=== PATIENT | male | born 1950 | race Caucasian/White ===

== ENCOUNTER 2016-12-15 19:53 | Inpatient (IN) | payer MEDICAID, MEDICARE ==
[~2016-12-15] VITALS: Ht 190.5 cm; Wt 132.5 kg
[2016-12-15] VITALS (8 sets, daily range): BP systolic 131–180; BP diastolic 66–90
[~2016-12-15 19:53] MED LIST: AGM875T
--- OUTSIDE RECORDS SUMMARY | 2016-12-15 21:49 | XMS REPORT ---
Author Author MASTER MORELAND [employer] Address Unknown Phone Unavailable Care Team Providers Care Test Deskman Name Role Phone MASTER MORELAND Unavailable Allergies No Known Allergies Problems Problem Type Condition Code Onset Dates Condition Status Problem History of ventricular tachycardia Z86.79 Active Problem Right ventricular systolic dysfunction without heart failure I51.89 Active Problem Prolonged QT interval R94.31 Active Problem Hypertension I10 Active Problem History of stroke Z86.73 Active Problem Elevated parathyroid hormone E34.9 Active Problem Paroxysmal atrial fibrillation I48.0 Active Problem History of GI bleed Z87.19 Active Problem Hematochezia K92.1 Active Problem Unspecified cirrhosis of liver K74.60 Active Problem Hematuria R31.9 Active Problem Vitamin D deficiency E55.9 Active Problem Localized swelling, mass and lump, head R22.0 Active Problem Thrombocytopenia D69.6 Active Medications Medication Code System Code Instructions Start Date End Date Status Dosage Carvedilol [facility] [address]-41 12.5 MG Orally two times per day 1 tablet Protonix [facility] [address]-20 40 mg Orally Once a day January 19, 2016 1 packet Potassium Chloride [facility] [address]-57 40 MEQ/15ML (20%) Orally Once a day 2 ml with food Results No Known Results Summary Purpose eClinicalWorks Submission
[2016-12-15] MEDS ORDERED: NS IV 1000 ML 1,000 ML ONE (21:56)
[2016-12-15] MEDS: ONDANSETRON 4 MG/2 ML (SDV) Z0FRAN IVP PRN (22:22)
[2016-12-15] MEDS: NS IV 1000 ML 1,000 ML IV SCH (22:23)
[2016-12-15] MEDS: PANTOPRAZOLE INJECTION 200 MG in NS (IVPB) 50 ML IV SCH (22:29)
[2016-12-16] VITALS (26 sets, daily range): BP systolic 93–162; BP diastolic 53–98
[2016-12-16 03:04] LABS: BASOPHILS % (AUTO) 0 % (0-10); EOSINOPHILS % (AUTO) 0 % (0-10); LYMPHOCYTES # (AUTO) 3.8 X 10^3 (1.0-4.0); LYMPHOCYTES % (AUTO) 21 % (12-44); MEAN CORPUSCULAR HEMOGLOBIN 35 PG (25-34); MEAN CORPUSCULAR HGB CONC 34 G/DL (32-36); MEAN CORPUSCULAR VOLUME 102 FL (80-99); MEAN PLATELET VOLUME 11.7 FL (7.4-10.4); MONOCYTES # (AUTO) 2.3 X 10^3 (0.0-1.0); MONOCYTES % (AUTO) 13 % (0-12); NEUTROPHILS # (AUTO) 12.2 X 10^3 (1.8-7.8); NEUTROPHILS % (AUTO) 67 % (42-75); PLATELET COUNT 103 10^3/uL (130-400); RED BLOOD COUNT 2.63 10^6/uL (4.35-5.85); RED CELL DISTRIBUTION WIDTH 15.8 % (10.0-14.5); WHITE BLOOD COUNT 18.2 10^3/uL (4.3-11.0)
[2016-12-16 03:12] LABS: PROTHROMBIN TIME PATIENT 22.7 SEC (12.2-14.7)
[2016-12-16 03:23] LABS: ANISOCYTOSIS SLIGHT; BAND NEUTROPHILS 0 %; BASOPHILS % (MANUAL) 0 %; EOSINOPHILS % (MANUAL) 0 %; LYMPHOCYTES % (MANUAL) 16 %; NEUTROPHILS % (MANUAL) 74 %; POLYCHROMASIA SLIGHT
[2016-12-16 03:24] LABS: ROULEAUX SLIGHT
[2016-12-16 03:25] LABS: ALANINE AMINOTRANSFERASE 22 U/L (0-55); ALBUMIN 2.2 G/DL (3.2-4.5); ANION GAP 10 MMOL/L (5-14); ASPARTATE AMINO TRANSFERASE 33 U/L (5-34); BILIRUBIN,TOTAL 3.5 MG/DL (0.1-1.0); BLOOD UREA NITROGEN 48 MG/DL (7-18); BUN/CREATININE RATIO 62; CALCIUM 7.7 MG/DL (8.5-10.1); CARBON DIOXIDE 22 MMOL/L (21-32); CHLORIDE 115 MMOL/L (98-107); CREATININE SERUM 0.78 MG/DL (0.60-1.30); GFR ESTIMATED > 60; GLUCOSE 120 MG/DL (70-105); MAGNESIUM 1.6 MG/DL (1.8-2.4); PHOSPHORUS 2.5 MG/DL (2.3-4.7); SODIUM 147 MMOL/L (135-145); TOTAL PROTEIN 5.2 G/DL (6.4-8.2)
[2016-12-16] MEDS: KCL 20 MEQ TAB (K-DUR) PO SCH (04:25)
[2016-12-16] MEDS: POTASSIUM CL 10MEQ/50ML IVPB 50 ML IV SCH (04:25)
[2016-12-16] MEDS: MAGNESIUM 1 GM/100 ML IVPB 100 ML IV SCH ×5 (05:11→09:57)
[2016-12-16] MEDS: NS IV 1000 ML 1,000 ML IV SCH ×2 (08:26→15:45)
[2016-12-16] MEDS: ONDANSETRON 4 MG/2 ML (SDV) Z0FRAN IVP PRN (08:26)
--- NOTE | 2016-12-16 08:46 | History & Physical-Hospitalist ---
HPI History of Present Illness: HPI/Chief Complaint this is 66-year-old white male who is a poor historian. He was accepted in transfer from [facility] last night at the request of Dr. Coles because of GI bleeding and recent suspected cardiac history. The patient said he had recently had a heart attack and then went to [facility] to recover. He was discharged last Saturday and went home. He is uncertain of his medications but said he was taking some. He denies having had any stroke or problems with his liver that he knows of in the past. He had become ill yesterday and then began vomiting and could not control it. Vomitus was coffee ground and overnight his hemoglobin has dropped. At the time of my interview he is coughing some, thirsty, but otherwise in no distress. Source: patient Exam Limitations: clinical condition Date Seen 12/16/16 Attending Physician Nikia Valdez MD PCP No,Local Physician Referring Physician Date of Admission Dec 15, 2016 at 21:43 Home Medications & Allergies Home Medications Reviewed patient Home Medication Reconciliation Form Allergies Coded Allergies: NKANo Known Allergies (Unverified Allergy, Mild, 05/22/09) Past Aqdolrn-Rdxket-Uxlzyj Hx Patient Social History Marrital Status: Employed/Student: retired Alcohol Use: Past History Recreational Drug Use: No Smoking Status: Never a Smoker Physical Abuse Screen: No Sexual Abuse: No Recent Foreign Travel: No Contact w/other who traveled: No Recent Hopitalizations: Yes Recent Infectious Disease Expo: No Immunizations Up To Date Date of Influenza Vaccine: Sep 27, 2016 Seasonal Allergies Seasonal Allergies: No Surgeries Surgeries: Vasectomy Respiratory Hx Respiratory Disorders: No Cardiovascular Cardiac Disorders: Heart Attack, Hypertension Neurological Hx Neurological Disorders: No Gastrointestinal Gastrointestinal Disorders: Gastroesophageal Reflux, Liver Disease/Jaundice, Gastrointestinal Bleed Musculoskeletal Hx Musculoskeletal Disorders: No Endocrine Hx Endocrine Disorders: No HEENT HX ENT Disorders: No Cancer Hx Cancer: No Psychosocial Hx Psychiatric Problems: No Integumentary HX Skin/Integumentary Disorder: No Blood Transfusions Hx Blood Disorders: No Family Medical History Significant Family History: No Pertinent Family Hx Family Hx: Patient reports no known family medical history. Review of Systems Constitutional: weakness EENTM: no symptoms reported Respiratory: no symptoms reported Cardiovascular: no symptoms reported Gastrointestinal: heartburn vomiting Genitourinary: no symptoms reported Musculoskeletal: no symptoms reported Skin: no symptoms reported Psychiatric/Neurological: Other (Redfield loss) Physical Exam Physical Exam Vital Signs Vital Sign - Last 12Hours 12/15/16 21:51 Temp 98.0 Pulse 101 Resp 12 B/P 165/83 Pulse Ox 96 O2 Delivery Room Air Capillary Refill : General Appearance: Obese Other (seems confused but no distress) HEENT: Other (oral mucosa dry or dentition) Neck: Normal Inspection Supple Respiratory: Lungs Clear Normal Breath Sounds No Accessory Muscle Use No Respiratory Distress Cardiovascular: Extra Beats Tachycardia Gastrointestinal: No Organomegaly Non Tender Soft Rectal: Deferred Back: Normal Inspection Extremity: Pedal Edema Neurologic/Psychiatric: Alert Other (confused and poor historian) Skin: Jaundice Lymphatic: No Adenopathy Results Results/Procedures Lab Laboratory Tests 12/15/16 22:15 12/16/16 02:30 12/16/16 05:43 Assessment/Plan Admission Diagnosis 1.upper GI bleed-consult Dr. Guy for upper and endoscopy, needs evaluation for esophageal varices 2. Lab picture consistent with cirrhotic liver disease uncertain etiology 3. thrombocytopenia is likely secondary to number 2 4. Elevated bilirubin most likely secondary to number 2 5. Questionable history of heart disease or a heart attack-we'll consult Dr. Lang for further evaluation 6. leukocytosis 7. Long PT/INR most likely secondary to number 2 8. Hypomagnesemia Clinical Quality Measures DVT/VTE Risk/Contraindication: Risk Factor Score Per Nursin RFS Level Per Nursing on Admit: 4+=Very High NIKIA VALDEZ MD Dec 16, 2016 08:46
--- NOTE | 2016-12-16 09:17 | Diagnostic Imaging Report ---
INDICATION: New admit. GI bleed with shortness of breath. FINDINGS: Lungs are well-aerated. There is increased density noted in the left lung base. No air bronchograms are demonstrated. The heart is not enlarged. No pulmonary edema. No hilar adenopathy. No pneumothorax or pleural effusions. IMPRESSION: Increased density left lung base suggesting developing consolidated infiltrate. Followup recommended. Dictated by: Dictated on workstation # [id number]
[2016-12-16] MEDS: meTOprolol 5 MG/5 ML (LOPRESSOR) VIAL IV SCH ×5 (09:56→21:37)
[2016-12-16 10:34] LABS: ALANINE AMINOTRANSFERASE 20 U/L (0-55); ALBUMIN 2.1 G/DL (3.2-4.5); ANION GAP 9 MMOL/L (5-14); ASPARTATE AMINO TRANSFERASE 31 U/L (5-34); BILIRUBIN,TOTAL 3.2 MG/DL (0.1-1.0); BLOOD UREA NITROGEN 47 MG/DL (7-18); BUN/CREATININE RATIO 59; CALCIUM 7.4 MG/DL (8.5-10.1); CARBON DIOXIDE 23 MMOL/L (21-32); CHLORIDE 117 MMOL/L (98-107); GFR ESTIMATED > 60; GLUCOSE 129 MG/DL (70-105); POTASSIUM 3.8 MMOL/L (3.6-5.0); SODIUM 149 MMOL/L (135-145); TOTAL PROTEIN 4.8 G/DL (6.4-8.2)
--- NOTE | 2016-12-16 13:08 | Consultation-Cardiology ---
HPI-Cardiology Cardiology Consultation: Date of Consultation 12/16/16 Date of Admission 12/15/16 Attending Physician Nikia Valdez MD Admitting Physician No,Local Physician Consulting Physician ZOEY PASTOR MD, FACP, FACC, [facility], CCDS Physician requesting consult: Dr Valdez HPI: Chief Complaint: Reason for consultation: Vague history of heart disease 66 yo man who does not provide much history. Was admitted to Dr Valdez after being transferred from [place] for UGI bleed. He states had had some abdominal discomfort yesterday and had had nausea and vomiting for a day or two, including dark-colored vomitus. He does not report cp. Despite asking him several times, he did not report any specific history of CAD. There is a mention of possible heart attacks, possibly in the recent past, in Dr Valdez' s note. Mr Branch does not report syncope or presyncope or palp or ankle swelling or shortness of breath, but history is not reliable. He goes silent during interview and seems to drift into sleep or unwilling to answer any questions Review of Systems-Cardiology Review of Systems Constitutional: other (A review of systems was attemtped, but is quite unreliable due either to his unwillingness to answer questions or somnolence or lack of recall of history) WRB-Xrfwpb-Vasrdn Hx Patient Social History Marrital Status: Employed/Student: retired Alcohol Use: Past History Recreational Drug Use: No Smoking Status: Never a Smoker Recent Foreign Travel: No Recent Infectious Disease Expo: No Hospitalization with Isolation: Denies Physical Abuse Screen: No Sexual Abuse: No Immunizations Up To Date Date of Influenza Vaccine: Sep 27, 2016 Past Medical History PMH As described under Assessment. Family Medical History Family History: Patient reports no known family medical history. Allergies and Home Medications Allergies Coded Allergies: NKANo Known Allergies (Unverified Allergy, Mild, 05/22/09) Physical Exam-Cardiology Physical Exam Vital Signs/I&O Vital Sign - Last 12Hours 12/16/16 12/16/16 12/16/16 12/16/16 01:30 02:00 03:00 04:00 Temp 98.2 Pulse 105 107 105 114 Resp 21 14 16 20 B/P 109/58 109/58 147/70 105/64 Pulse Ox 93 93 95 96 O2 Delivery Room Air Room Air Room Air Room Air 12/16/16 12/16/16 12/16/16 12/16/16 05:00 06:00 07:00 07:42 Temp 98.8 Pulse 105 106 102 104 Resp 20 28 17 B/P 129/62 121/53 148/70 Pulse Ox 95 91 95 O2 Delivery Room Air Room Air Room Air 12/16/16 11:40 Temp 98.4 Pulse 106 Resp 12 B/P 150/85 Pulse Ox 95 O2 Delivery Room Air Capillary Refill : Constitutional: other (He appears well nourished but communication with him is very difficult because of either unwillingness to answer questions or somnolence or lack of recall of history. Orientation is difficult to determine. He appears oriented to place and person, but not to time) HEENT: PERRL EOMINo xanthelasmas are seen Neck: carotid pulses are 2 + bilaterally with good upstrokes Respiratory: other (Fair to good air entry bilat, but diminished at the bases) Cardiovascular: regular rate-rhythm S1 and S2 systolic murmur (faint NAY at cardiac base) Gastrointestinal: No tender, softNo guarding, audible bowel sounds Extremities: swelling (mild leg edema)No clubbing, No cyanosis Neurologic/Psychiatric: other (mental status is described above; does seem to move all of his limbs equally) Skin: No rash on exposed areas, No ulcerations on exposed areas Data Review Labs Laboratory Tests 12/15/16 22:15: Hematocrit 31L, Hemoglobin 10.3L 12/16/16 02:30: Hematocrit 27L, Hemoglobin 9.1L, Activated Partial Thromboplast Time 39H, Alanine Aminotransferase (ALT/SGPT) 22, Albumin 2.2L, Alkaline Phosphatase 57, Anion Gap 10, Anisocytosis SLIGHT, Aspartate Amino Transf (AST/SGOT) 33, BUN/ Creatinine Ratio 62, Band Neutrophils 0, Basophils # (Auto) 0.0, Basophils % ( Manual) 0, Basophils (%) (Auto) 0, Blood Urea Nitrogen 48H, Calcium Level 7.7L, Carbon Dioxide Level 22, Chloride Level 115H, Creatinine 0.78, Eosinophils # ( Auto) 0.0, Eosinophils % (Manual) 0, Eosinophils (%) (Auto) 0, Estimat Glomerular Filtration Rate > 60, Glucose Level 120H, INR Comment 2.0H, Lymphocytes # (Auto) 3.8, Lymphocytes % (Manual) 16, Lymphocytes (%) (Auto) 21, Macrocytosis SLIGHT, Magnesium Level 1.6L, Mean Corpuscular Hemoglobin 35H, Mean Corpuscular Hemoglobin Concent 34, Mean Corpuscular Volume 102H, Mean Platelet Volume 11.7H, Monocytes # (Auto) 2.3H, Monocytes % (Manual) 10, Monocytes (%) (Auto) 13H, Neutrophils # (Auto) 12.2H, Neutrophils % (Manual) 74 , Neutrophils (%) (Auto) 67, Phosphorus Level 2.5, Platelet Count 103L, Polychromasia SLIGHT, Potassium Level 4.0, Prothrombin Time 22.7H, Red Blood Count 2.63L, Red Cell Distribution Width 15.8H, Rouleau SLIGHT, Sodium Level 147H, Total Bilirubin 3.5H, Total Protein 5.2L, White Blood Count 18.2H 12/16/16 05:43: Hematocrit 26L, Hemoglobin 8.6L 12/16/16 09:55: Hematocrit 24L, Hemoglobin 8.1L, Alanine Aminotransferase (ALT/SGPT) 20, Albumin 2.1L, Alkaline Phosphatase 53, Anion Gap 9, Aspartate Amino Transf (AST/ SGOT) 31, BUN/Creatinine Ratio 59, Blood Urea Nitrogen 47H, Calcium Level 7.4L, Carbon Dioxide Level 23, Chloride Level 117H, Creatinine 0.80, Estimat Glomerular Filtration Rate > 60, Glucose Level 129H, Potassium Level 3.8, Sodium Level 149H, Total Bilirubin 3.2H, Total Protein 4.8L, Troponin I < 0.30 Laboratory Tests 12/15/16 22:15 12/16/16 02:30 12/16/16 05:43 12/16/16 09:55 A/P-Cardiology Assessment/Admission Diagnosis * Impaired mental status or unwillingness to answer questions or poor recall of history * Probable active GI bleed (H/H continually falling) * Vague history of heart disease. No details known * Paroxysmal atrial fibrillation/flutter documented on an ECG of 12/16/16 at 9: 37 am. Currently NSR * ?Spontaneous coagulopathy (elevated PT/INR). He doesn't provide any history of having been on oral anticoag, but also does not seem to know his medical history or home meds * Echo of 12/16/16: LVEF 75-80% (hyperdynamic) without wall motion abnormality, mild to mod conc LVH, PASP 40 mmHg Discussion and Recomendations * Complex management due to patient's inability to provide any information (see above) * Will treat tachycardia with iv beta-she, as tolerated * If no evidence of active GI bleed, we recommend initiation of low dose aspirin while we are trying to get his past medical history/records together * Not suitable for full oral or parenteral anticoag due to active GI bleed and due to spontaneous coagulopathy Clinical Quality Measures DVT/VTE Risk/Contraindication: Risk Factor Score Per Nursin RFS Level Per Nursing on Admit: 4+=Very High Contraindications-Pharm: Other *list below* Other: upper GI bleed ZOEY PASTOR MD FACP FACC CCDS Dec 16, 2016 13:08
--- NOTE | 2016-12-16 13:21 | Consultation ---
History of Present Illness History of Present Illness Patient Consulted On(osiris/time) 12/16/16 13:20 Date of Admission History of Present Illness Surgery was asked to consult regarding Anemia and possible GI bleed. HPI: Pt is a 66-year-old white male who is a poor historian. He was accepted in transfer from [facility] (by Dr. Valdez) last night at the request of Dr. Coles because of GI bleeding and recent suspected cardiac history. The patient said he had recently had a heart attack and then went to [facility] to recover. He was discharged last Saturday and went home. He is uncertain of his medications but said he was taking some. He denies having had any stroke or problems with his liver that he knows of in the past. He had become ill yesterday and then began vomiting and could not control it. Vomitus was coffee ground and overnight his hemoglobin has dropped. Today pt seems tired and drifts to sleep, can answer some questions but not all. I am unable to determine if this is normal for him. He denies pain or vomiting today. Unable to determine status of alcohol consumption. According to EMS last night he had appx 500ml of coffee ground emesis and they found a "bucket" next to him that was 1/4 full of same fluid. Allergies and Home Medications Allergies Coded Allergies: NKANo Known Allergies (Unverified Allergy, Mild, 05/22/09) Past Micurbo-Whwequ-Xgwsvs Hx Patient Social History Alcohol Use: Past History Recreational Drug Use: No Smoking Status: Never a Smoker Recent Foreign Travel: No Contact w/Someone Who Travel: No Recent Infectious Disease Expo: No Recent Hopitalizations: Yes Physical Abuse Screen: No Sexual Abuse: No Immunizations Up To Date Date of Influenza Vaccine: Sep 27, 2016 Seasonal Allergies Seasonal Allergies: No Surgeries Surgeries: Vasectomy Respiratory Hx Respiratory Disorders: No Cardiovascular Cardiac Disorders: Heart Attack, Hypertension Neurological Hx Neurological Disorders: No Gastrointestinal Gastrointestinal Disorders: Gastroesophageal Reflux, Liver Disease/Jaundice, Gastrointestinal Bleed Musculoskeletal Hx Musculoskeletal Disorders: No Endocrine Hx Endocrine Disorders: No HEENT HX ENT Disorders: No Cancer Hx Cancer: No Psychosocial Hx Psychiatric Problems: No Integumentary HX Skin/Integumentary Disorder: No Blood Transfusions Hx Blood Disorders: No Family Medical History Significant Family History: No Pertinent Family Hx, Diabetes (pt denies any diabetes in his family) Family Medial History: Patient reports no known family medical history. Review of Systems-General ROS-Unable to Obtain: Per chart and from Daria pt is not reliable historian Physical Exam-General Problems Physical Exam Vital Signs Vital Sign - Last 12Hours 12/15/16 21:51 Temp 98.0 Pulse 101 Resp 12 B/P 165/83 Pulse Ox 96 O2 Delivery Room Air Capillary Refill : General Appearance: mild distress obese Eyes: Bilateral Eye EOMI, Bilateral Eye PERRL HEENT: pharynx normalNo scleral icterus (R), No scleral icterus (L) Neck: non-tender supple Respiratory: chest non-tender lungs clear no respiratory distress accessory muscle use Cardiovascular: regular rate, rhythm no murmur Gastrointestinal: normal bowel sounds soft no organomegaly no pulsatile mass tenderness (reports tenderness with deep palpation, but does not have voluntary guarding) Back: no CVA tenderness no vertebral tenderness Extremities: no calf tenderness normal capillary refill Neurologic/Psychiatric: electronic repair troubleshooter II-XII nml as tested no motor/sensory deficits Skin: normal color warm/dry Lymphatic: no adenopathy (neck, axilla or groin) Data Review Labs Laboratory Tests 12/15/16 22:15: Hematocrit 31L, Hemoglobin 10.3L 12/16/16 02:30: Hematocrit 27L, Hemoglobin 9.1L, Activated Partial Thromboplast Time 39H, Alanine Aminotransferase (ALT/SGPT) 22, Albumin 2.2L, Alkaline Phosphatase 57, Anion Gap 10, Anisocytosis SLIGHT, Aspartate Amino Transf (AST/SGOT) 33, BUN/ Creatinine Ratio 62, Band Neutrophils 0, Basophils # (Auto) 0.0, Basophils % ( Manual) 0, Basophils (%) (Auto) 0, Blood Urea Nitrogen 48H, Calcium Level 7.7L, Carbon Dioxide Level 22, Chloride Level 115H, Creatinine 0.78, Eosinophils # ( Auto) 0.0, Eosinophils % (Manual) 0, Eosinophils (%) (Auto) 0, Estimat Glomerular Filtration Rate > 60, Glucose Level 120H, INR Comment 2.0H, Lymphocytes # (Auto) 3.8, Lymphocytes % (Manual) 16, Lymphocytes (%) (Auto) 21, Macrocytosis SLIGHT, Magnesium Level 1.6L, Mean Corpuscular Hemoglobin 35H, Mean Corpuscular Hemoglobin Concent 34, Mean Corpuscular Volume 102H, Mean Platelet Volume 11.7H, Monocytes # (Auto) 2.3H, Monocytes % (Manual) 10, Monocytes (%) (Auto) 13H, Neutrophils # (Auto) 12.2H, Neutrophils % (Manual) 74 , Neutrophils (%) (Auto) 67, Phosphorus Level 2.5, Platelet Count 103L, Polychromasia SLIGHT, Potassium Level 4.0, Prothrombin Time 22.7H, Red Blood Count 2.63L, Red Cell Distribution Width 15.8H, Rouleau SLIGHT, Sodium Level 147H, Total Bilirubin 3.5H, Total Protein 5.2L, White Blood Count 18.2H 12/16/16 05:43: Hematocrit 26L, Hemoglobin 8.6L 12/16/16 09:55: Hematocrit 24L, Hemoglobin 8.1L, Alanine Aminotransferase (ALT/SGPT) 20, Albumin 2.1L, Alkaline Phosphatase 53, Anion Gap 9, Aspartate Amino Transf (AST/ SGOT) 31, BUN/Creatinine Ratio 59, Blood Urea Nitrogen 47H, Calcium Level 7.4L, Carbon Dioxide Level 23, Chloride Level 117H, Creatinine 0.80, Estimat Glomerular Filtration Rate > 60, Glucose Level 129H, Potassium Level 3.8, Sodium Level 149H, Total Bilirubin 3.2H, Total Protein 4.8L, Troponin I < 0.30 Assessment/Plan Assessment/Plan Assessment/Plan Anemia possibly secondary to GI bleed - EGD with possible biopsy, IV fluids, check H/H Q12 hours. 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 Coagulopathy - ? secondary to medications or liver disease CAD - Cardiology consulted Hypomagnesemia - recheck labs and replace Hypernatremia & Hyperchloremia switch IVF Hyperbilirubinemia ? secondary to liver disease or GI Bleed Clinical Quality Measures DVT/VTE Risk/Contraindication: Risk Factor Score Per Nursin RFS Level Per Nursing on Admit: 4+=Very High Contraindications-Pharm: Other *list below* Other: upper GI bleed GLENDA UPTON DO Dec 16, 2016 13:21
[2016-12-16] MEDS ORDERED: VANCOMYCIN IV ADD-VANTAGE 1,000 MG in SODIUM CHLORIDE (ADD-VANTAGE) 250 ML IV ONE (13:45)
[2016-12-16] MEDS ORDERED: NS IV 500 ML 500 ML ONE (13:49)
[2016-12-16] MEDS ORDERED: proPOfol 200 MG/20 ML (DIPRIVAN) VIAL IV ONE ×2 (13:51→14:15)
[2016-12-16] MEDS ORDERED: EPINEPHrine INJECTION 1 MG/ML AMP ONE ×2 (14:03→14:18)
[2016-12-16] MEDS ORDERED: EPINEPHrine INJECTION 1 MG/ML AMP INJ ONE (14:15)
[2016-12-16] MEDS ORDERED: HURRICAINE EXT TUBE (BENZOCAINE) XX ONE (14:15)
[2016-12-16] MEDS ORDERED: NS IV 500 ML 500 ML IV ONE (14:15)
[2016-12-16] MEDS ORDERED: VANCOMYCIN 2000 MG/NS 500 ML IVPB IV NR ×2 (15:00)
[2016-12-16] MEDS ORDERED: HURRICAINE EXT TUBE (BENZOCAINE) ONE (15:31)
[2016-12-16] MEDS: AMPICILLIN/SULBACTAM INJECTION 1.5 GM in NS (IVPB) 50 ML IV SCH ×2 (15:44→21:37)
--- NOTE | 2016-12-16 16:06 | Progress Note-Hospitalist ---
Progress Note HPI/CC on Admission this is 66-year-old white male who is a poor historian. He was accepted in transfer from [facility] last night at the request of Dr. Coles because of GI bleeding and recent suspected cardiac history. The patient said he had recently had a heart attack and then went to [facility], operated by [facility] to recover. He was discharged last Saturday and went home. He is uncertain of his medications but said he was taking some. He denies having had any stroke or problems with his liver that he knows of in the past. He had become ill yesterday and then began vomiting and could not control it. Vomitus was coffee ground and overnight his hemoglobin has dropped. At the time of my interview he is coughing some, thirsty, but otherwise in no distress. Progress Notes/Assess & Plan Date Seen 12/16/16 Admission Dx/Process 1.upper GI bleed-consult Dr. Guy for upper and endoscopy, needs evaluation for esophageal varices 2. Lab picture consistent with cirrhotic liver disease uncertain etiology 3. thrombocytopenia is likely secondary to number 2 4. Elevated bilirubin most likely secondary to number 2 5. Questionable history of heart disease or a heart attack-we'll consult Dr. Lang for further evaluation 6. leukocytosis 7. Long PT/INR most likely secondary to number 2 8. Hypomagnesemia Diagonsis/Assessment & Plan Dr. Tripp was kind enough to provide additional documents and history from her having seen Mr. Branch in the past. Evidently he has had a history of paroxysmal atrial fibrillation the past, hypertension, GI bleeding, and a cardiac arrest which was pulseless V. tach in April and May 2015. Heart Has been recommended in the past but he is fused to do that. He also has a history of a stroke in the past-2014 and unspecified cirrhosis of the liver. His had a history of prolonged QT interval. Vitamin D deficiency elevated parathyroid hormone level and thrombocytopenia. It has been recommended in the past that he take Coreg 12.5 mg twice a day, aspirin, Lasix, potassium, and Protonix.he has been noncompliant with those medications KYLAH NORRIS MD Dec 16, 2016 16:06
[2016-12-16] MEDS ORDERED: SUCRALFATE 1 GM (CARAFATE) TAB PO SCH (21:00)
[2016-12-16] MEDS ORDERED: LACTULOSE SYRUP 10GM/15ML (ENULOSE) 30ML UDC PO SCH (21:00)
[2016-12-16] MEDS ORDERED: LACTULOSE SYRUP 10GM/15ML (ENULOSE) 30ML UDC ONE (21:33)
[2016-12-17] VITALS (30 sets, daily range): BP systolic 117–177; BP diastolic 56–92
[2016-12-17] MEDS: VANCOMYCIN 1250 MG/NS 250 ML IVPB IV SCH ×8 (00:01→23:50)
[2016-12-17] MEDS: PANTOPRAZOLE INJECTION 200 MG in NS (IVPB) 50 ML IV SCH (00:01)
[2016-12-17] MEDS: meTOprolol 5 MG/5 ML (LOPRESSOR) VIAL IV SCH ×8 (01:00→22:00)
[2016-12-17] MEDS: KCL 20 MEQ TAB (K-DUR) PO SCH (03:46)
[2016-12-17 04:08] LABS: BASOPHILS % (AUTO) 0 % (0-10); EOSINOPHILS # (AUTO) 0.1 10^3/uL (0.0-0.3); EOSINOPHILS % (AUTO) 1 % (0-10); LYMPHOCYTES # (AUTO) 3.4 X 10^3 (1.0-4.0); LYMPHOCYTES % (AUTO) 17 % (12-44); MEAN CORPUSCULAR HEMOGLOBIN 34 PG (25-34); MEAN CORPUSCULAR HGB CONC 33 G/DL (32-36); MEAN CORPUSCULAR VOLUME 103 FL (80-99); MEAN PLATELET VOLUME 11.8 FL (7.4-10.4); MONOCYTES % (AUTO) 10 % (0-12); NEUTROPHILS # (AUTO) 13.9 X 10^3 (1.8-7.8); NEUTROPHILS % (AUTO) 72 % (42-75); PLATELET COUNT 93 10^3/uL (130-400); RED BLOOD COUNT 2.15 10^6/uL (4.35-5.85); WHITE BLOOD COUNT 19.4 10^3/uL (4.3-11.0)
[2016-12-17 04:18] LABS: INR 2.4 (0.8-1.4); PROTHROMBIN TIME PATIENT 25.9 SEC (12.2-14.7)
[2016-12-17 04:32] LABS: ALANINE AMINOTRANSFERASE 22 U/L (0-55); ALBUMIN 2.2 G/DL (3.2-4.5); ANION GAP 11 MMOL/L (5-14); ASPARTATE AMINO TRANSFERASE 36 U/L (5-34); BILIRUBIN,TOTAL 3.1 MG/DL (0.1-1.0); BLOOD UREA NITROGEN 40 MG/DL (7-18); BUN/CREATININE RATIO 47; CALCIUM 7.2 MG/DL (8.5-10.1); CARBON DIOXIDE 19 MMOL/L (21-32); CHLORIDE 122 MMOL/L (98-107); CREATININE SERUM 0.85 MG/DL (0.60-1.30); GFR ESTIMATED > 60; GLUCOSE 124 MG/DL (70-105); MAGNESIUM 2.1 MG/DL (1.8-2.4); PHOSPHORUS 2.4 MG/DL (2.3-4.7); POTASSIUM 3.6 MMOL/L (3.6-5.0); SODIUM 152 MMOL/L (135-145); TOTAL PROTEIN 4.8 G/DL (6.4-8.2)
[2016-12-17] MEDS: MAGNESIUM 1 GM/100 ML IVPB 100 ML IV SCH (05:46)
[2016-12-17] MEDS: AMPICILLIN/SULBACTAM INJECTION 1.5 GM in NS (IVPB) 50 ML IV SCH ×3 (05:55→23:48)
[2016-12-17] MEDS: POTASSIUM CL 10MEQ/50ML IVPB 50 ML IV SCH ×3 (05:56→07:33)
[2016-12-17] MEDS: NS IV 1000 ML 1,000 ML IV SCH ×2 (05:59→16:57)
[2016-12-17] MEDS: SUCRALFATE 1 GM (CARAFATE) TAB NG SCH ×4 (06:02→23:47)
--- NOTE | 2016-12-17 07:11 | Pulmonary Consultation ---
History of Present Illness History of Present Illness Date of Consultation 12/17/16 07:06 Date of Admission History of Present Illness 66yo poor historian with hx of recent [place] poor historian transferred from [facility] by Dr. Coles secondary to GIB. Prior to admission pt was coughing up coffee ground emesis. pt is now s/p EGD duodenal ulcers were found. Unable to obtain ROS. I am consulted for ICU management. Allergies and Home Medications Allergies Coded Allergies: NKANo Known Allergies (Unverified Allergy, Mild, 05/22/09) Past Kooxsur-Mpeixl-Ssfavy Hx Patient Social History Alcohol Use: Past History Recreational Drug Use: No Smoking Status: Never a Smoker Recent Foreign Travel: No Contact w/Someone Who Travel: No Recent Infectious Disease Expo: No Recent Hopitalizations: Yes Physical Abuse Screen: No Sexual Abuse: No Immunizations Up To Date Date of Influenza Vaccine: Sep 27, 2016 Seasonal Allergies Seasonal Allergies: No Surgeries Surgeries: Vasectomy Respiratory Hx Respiratory Disorders: No Cardiovascular Cardiac Disorders: Heart Attack, Hypertension Neurological Hx Neurological Disorders: No Gastrointestinal Gastrointestinal Disorders: Gastroesophageal Reflux, Liver Disease/Jaundice, Gastrointestinal Bleed Musculoskeletal Hx Musculoskeletal Disorders: No Endocrine Hx Endocrine Disorders: No HEENT HX ENT Disorders: No Cancer Hx Cancer: No Psychosocial Hx Psychiatric Problems: No Integumentary HX Skin/Integumentary Disorder: No Blood Transfusions Hx Blood Disorders: No Family Medical History Significant Family History: No Pertinent Family Hx, Diabetes (pt denies any diabetes in his family) Family Medial History: Patient reports no known family medical history. Exam Exam Vital Signs Date Time Temp Pulse Resp B/P Pulse Ox O2 Delivery O2 Flow Rate FiO2 12/17/16 06:00 80 12 118/62 96 Nasal Cannula 2.00 12/17/16 05:00 81 10 124/72 95 Nasal Cannula 2.00 12/17/16 04:00 133 26 117/59 100 Nasal Cannula 2.00 12/17/16 04:00 2.00 12/17/16 03:00 89 13 128/56 98 Nasal Cannula 2.00 12/17/16 02:00 89 11 133/92 95 Nasal Cannula 2.00 12/17/16 01:00 86 21 135/68 96 Nasal Cannula 2.00 12/17/16 01:00 86 12/16/16 23:00 94 24 115/62 96 Nasal Cannula 2.00 12/16/16 22:00 86 12 136/69 94 Nasal Cannula 2.00 12/16/16 21:00 88 16 130/64 92 Nasal Cannula 2.00 12/16/16 21:00 2.00 12/16/16 20:30 2.00 12/16/16 20:00 98.4 90 16 138/85 94 Nasal Cannula 2.00 12/16/16 19:04 94 12/16/16 19:04 94 13 97 Nasal Cannula 2.00 12/16/16 19:00 151 17 93/57 99 Nasal Cannula 2.00 12/16/16 19:00 151 12/16/16 18:00 146 26 103/66 97 Room Air 12/16/16 17:00 97 10 107/88 100 Room Air 12/16/16 16:00 98.2 93 12 140/72 97 Nasal Cannula 2.00 12/16/16 15:00 105 23 140/72 100 Room Air 12/16/16 14:00 12/16/16 13:00 105 9 95 Room Air 12/16/16 13:00 98 12/16/16 12:00 112 7 162/80 95 Room Air 12/16/16 11:40 98.4 106 12 150/85 95 Room Air 12/16/16 11:00 112 8 128/75 95 Room Air 12/16/16 10:00 174 12 117/68 93 Room Air 12/16/16 09:00 101 16 127/98 92 Room Air 12/16/16 08:00 107 7 126/80 94 Room Air 12/16/16 07:42 98.8 104 17 148/70 95 Room Air I & O 12/17/16 07:00 Intake Total 2900 ml Balance 2900 ml General Appearance: Obese Other (seems confused but no distress) HEENT: Other (oral mucosa dry or dentition) Neck: Normal Inspection Supple Respiratory: Lungs Clear Normal Breath Sounds No Accessory Muscle Use No Respiratory Distress Cardiovascular: Extra Beats Tachycardia Gastrointestinal: normal bowel sounds soft no organomegaly no pulsatile mass tenderness (reports tenderness with deep palpation, but does not have voluntary guarding) Extremity: Pedal Edema Neurologic/Psychiatric: Depressed Affect Disoriented x3 Other (confused and poor historian) Skin: Jaundice Lymphatic: No Adenopathy Results Lab Laboratory Tests 12/15/16 22:15 12/16/16 02:30 12/16/16 05:43 12/16/16 09:55 12/16/16 15:58 12/17/16 03:25 Assessment/Plan Assessment/Plan Upper GIB -Dr. 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
[2016-12-17] MEDS ORDERED: VITAMIN K 1 MG/ML ORAL SOLN 1 ML SYRINGE PO NR (07:30)
--- NOTE | 2016-12-17 08:02 | Diagnostic Imaging Report ---
INDICATION: Dyspnea. DISCUSSION: Single portable upright view of the chest was obtained, comparison 12/16/2016. New enteric tube with tip below the level of the diaphragm though difficult to visualize. Normal heart size. No focal consolidation, pleural fluid, or pneumothorax. IMPRESSION: 1. No acute cardiopulmonary process. Dictated by: Dictated on workstation # [id number]
--- NOTE | 2016-12-17 08:40 | Progress Note-Cardiology ---
Cardiology SOAP Progress Note Subjective: In bed. Oriented to self. Not answering any questions asked of him. No visible signs of distress. Objective: I&O/Vital Signs Vital Sign - Last 12Hours 12/17/16 12/17/16 12/17/16 12/17/16 02:00 03:00 04:00 04:00 Pulse 89 89 133 Resp 11 13 26 B/P 133/92 128/56 117/59 Pulse Ox 95 98 100 O2 Delivery Nasal Cannula Nasal Cannula Nasal Cannula O2 Flow Rate 2.00 2.00 2.00 2.00 12/17/16 12/17/16 12/17/16 12/17/16 05:00 06:00 07:00 07:00 Pulse 81 80 82 80 Resp 10 12 8 B/P 124/72 118/62 119/61 Pulse Ox 95 96 96 O2 Delivery Nasal Cannula Nasal Cannula Nasal Cannula O2 Flow Rate 2.00 2.00 2.00 12/17/16 12/17/16 12/17/16 12/17/16 07:41 08:00 09:00 09:57 Temp 96.8 Pulse 76 80 80 Resp 5 11 17 B/P 141/68 143/74 132/63 Pulse Ox 97 95 92 O2 Delivery Nasal Cannula Nasal Cannula O2 Flow Rate 2.00 2.00 2.00 12/17/16 12/17/16 12/17/16 10:00 10:15 11:00 Temp 97.1 Pulse 89 88 81 Resp 14 14 9 B/P 134/62 134/62 132/69 Pulse Ox 94 97 97 O2 Delivery Nasal Cannula Nasal Cannula O2 Flow Rate 2.00 2.00 Intake and Output 12/17/16 00:00 Intake Total 1650 ml Balance 1650 ml Weight (Pounds): 286 Weight (Ounces): 0.0 Weight (Calculated Kilograms): 129.024852 Constitutional: other (He appears well nourished but communication with him is very difficult because of either unwillingness to answer questions or somnolence or lack of recall of history. Orientation is difficult to determine. He appears oriented to place and person, but not to time) Respiratory: other (Fair to good air entry bilat, but diminished at the bases) Cardiovascular: regular rate-rhythm S1 and S2 systolic murmur (faint NAY at cardiac base) Gastrointestional: No tender, softNo guarding, audible bowel sounds other ( NG tube in place) Extremities: swelling (mild leg edema)No clubbing, No cyanosis Neurologic/Psychiatric: other (mental status is described above; does seem to move all of his limbs equally) Skin: No rash on exposed areas, No ulcerations on exposed areas Results/Procedures: Labs Laboratory Tests 12/16/16 15:58: Ammonia 78H, Hematocrit 23L, Hemoglobin 7.8L 12/17/16 03:25: Hematocrit 22L, Hemoglobin 7.3L, Alanine Aminotransferase (ALT/SGPT) 22, Albumin 2.2L, Alkaline Phosphatase 56, Anion Gap 11, Aspartate Amino Transf (AST /SGOT) 36H, BUN/Creatinine Ratio 47, Basophils # (Auto) 0.0, Basophils (%) (Auto ) 0, Blood Urea Nitrogen 40H, Calcium Level 7.2L, Carbon Dioxide Level 19L, Chloride Level 122H, Creatinine 0.85, Eosinophils # (Auto) 0.1, Eosinophils (%) (Auto) 1, Estimat Glomerular Filtration Rate > 60, Glucose Level 124H, INR Comment 2.4H, Lymphocytes # (Auto) 3.4, Lymphocytes (%) (Auto) 17, Magnesium Level 2.1, Mean Corpuscular Hemoglobin 34, Mean Corpuscular Hemoglobin Concent 33, Mean Corpuscular Volume 103H, Mean Platelet Volume 11.8H, Monocytes # (Auto ) 2.0H, Monocytes (%) (Auto) 10, Neutrophils # (Auto) 13.9H, Neutrophils (%) ( Auto) 72, Phosphorus Level 2.4, Platelet Count 93L, Potassium Level 3.6, Prothrombin Time 25.9H, Red Blood Count 2.15L, Red Cell Distribution Width 16.0H , Sodium Level 152H, Total Bilirubin 3.1H, Total Protein 4.8L, White Blood Count 19.4H Microbiology 12/15/16 MRSA Screen - Final, Complete MRSA not isolated Procedures NAME: BRIONNA BUENO [facility] REC#: [id number] PT STATUS: ADM IN : 1950 PHYSICIAN: KYLAH NORRIS MD ADMIT DATE: 12/15/16/ICU Draft Date of Exam:12/17/16 CHEST 1 VIEW, AP/PA ONLY INDICATION: Dyspnea. DISCUSSION: Single portable upright view of the chest was obtained, comparison 12/16/2016. New enteric tube with tip below the level of the diaphragm though difficult to visualize. Normal heart size. No focal consolidation, pleural fluid, or pneumothorax. IMPRESSION: 1. No acute cardiopulmonary process. Dictated on workstation # [id number] Dict: 12/17/16 0707 Trans: 12/17/16 0802 [id number] Interpreted by: GAGANDEEP MCKEON MD Electronically signed by: A/P: Assessment: * Impaired mental status or unwillingness to answer questions or poor recall of history * GI bleed - duodenal ulcers seen on EGD of 12-16-16 * H/O VT cardiac arrest in April 2015 ([facility]): details unavailable * Paroxysmal atrial fibrillation/flutter documented on an ECG of 12/16/16 at 9: 37 am. Currently NSR * Spontaneous coagulopathy (elevated PT/INR) * H/O cirrhosis of the liver * ? h/o CVA in April 2015 * Echo of 12/16/16: LVEF 75-80% (hyperdynamic) without wall motion abnormality, mild to mod conc LVH, PASP 40 mmHg * Thrombocytopenia and anemia - management per medical services * Non-compliance with medications * H/O dysphagia * H/O ETOH abuse Plan: * Complex management due to patient's inability to provide any information (see above) * Medical records we have available reviewed * Will treat tachycardia with iv beta-she, as tolerated * S/P EGD which showed duodenal ulcers * Not suitable for full oral or parenteral anticoag due to active GI bleed and due to spontaneous coagulopathy * Consider CT of the head Physician Assessment Physician Assessment Still not able to answer questions in any detail Does not appear to be in any acute distress Lungs: fair air entry Cor: reg A&R * As documented in our note above that I updated at the time of this writing * Management remains complex due to reasons outlined above RAJESH SHEPHERD Dec 17, 2016 08:40 ZOEY PASTOR [facility] Dec 17, 2016 13:04 RAJESH SHEPHERD Dec 17, 2016 08:40
--- NOTE | 2016-12-17 08:40 | Progress Note-Hospitalist ---
Subjective HPI/CC On Admission this is 66-year-old white male who is a poor historian. He was accepted in transfer from [facility] last night at the request of Dr. Coles because of GI bleeding and recent suspected cardiac history. The patient said he had recently had a heart attack and then went to [facility] to recover. He was discharged last Saturday and went home. He is uncertain of his medications but said he was taking some. He denies having had any stroke or problems with his liver that he knows of in the past. He had become ill yesterday and then began vomiting and could not control it. Vomitus was coffee ground and overnight his hemoglobin has dropped. At the time of my interview he is coughing some, thirsty, but otherwise in no distress. Date Seen 12/17/16 Subjective/Events-last exam patient has increased somnolence with nystagmus and asterixis this morning. He arouses and knows his name and knows that he is at [place]. Hemoglobin is down to 7.3 he is receiving a blood transfusion. NG tube is in place for GI bleeding secondary to duodenal ulcers.. His ammonia level is high and he is receiving lactulose per the NG tube. He is on vancomycin and Zosyn. Review of Systems Neurological: : Confusion Objective Exam Vital Signs Vital Sign - Last 12Hours 12/15/16 12/16/16 21:51 16:00 Temp 98.0 Pulse 101 Resp 12 B/P 165/83 Pulse Ox 96 O2 Delivery Room Air O2 Flow Rate 2.00 Capillary Refill : General Appearance: Mild Distress HEENT: Other (nystagmus oral mucosa dry) Neck: Supple Respiratory: Lungs Clear Normal Breath Sounds No Accessory Muscle Use No Respiratory Distress Cardiovascular: Irregularly Irregular Tachycardia Gastrointestinal: Non Tender Soft Neurologic/Psychiatric: Other (somnolent but arousable) Skin: Pallor Results/Procedures Lab Laboratory Tests 12/16/16 09:55 12/16/16 15:58 12/17/16 03:25 Assessment/Plan Assessment and Plan Assess & Plan/Chief Complaint Dr. Tripp was kind enough to provide additional documents and history from her having seen Mr. Branch in the past. Evidently he has had a history of paroxysmal atrial fibrillation the past, hypertension, GI bleeding, and a cardiac arrest which was pulseless V. tach in April and May 2015. Heart Has been recommended in the past but he is fused to do that. He also has a history of a stroke in the past-2014 and unspecified cirrhosis of the liver. His had a history of prolonged QT interval. Vitamin D deficiency elevated parathyroid hormone level and thrombocytopenia. It has been recommended in the past that he take Coreg 12.5 mg twice a day, aspirin, Lasix, potassium, and Protonix.he has been noncompliant with those medications 1.upper GI bleed-consult Dr. Guy secondary to duodenal ulcers-currently receiving 2 units of packed cells and plasma 2. Lab picture consistent with cirrhotic liver disease uncertain etiology-now with grade 3 hepatic encephalopathy 3. thrombocytopenia is likely secondary to number 2 4. Elevated bilirubin most likely secondary to number 2 5. Questionable history of heart disease or a heart attack-we'll consult Dr. Lang for further evaluation 6. leukocytosis-on vancomycin and Zosyn 7. Long PT/INR most likely secondary to number 2 8. Hypomagnesemia 9. atrial fibrillation with poor rate control-treatment per Dr. Parisypernatremnaveen 10. hypernatremia Prognosis currently is very guarded Problem List Diagnosis/Problems Copy To: Copy Clinical Quality Measures Clinical Quality Measures KYLAH NORRIS MD Dec 17, 2016 08:40
[2016-12-17] MEDS ORDERED: LACTULOSE SYRUP 10GM/15ML (ENULOSE) 30ML UDC NG SCH (09:00)
--- NOTE | 2016-12-17 09:59 | ECHOCARDIOGRAPHY REPORT ---
PROCEDURE PHYSICIAN: ZOEY RIDDLE DATE OF PROCEDURE: 12/16/2016 TWO DIMENSIONAL ECHOCARDIOGRAM REPORT PRIMARY PHYSICIAN: Dr. Valdez OTHER PHYSICIAN: Dr. Riddle REFERRING PHYSICIAN: ORDERING PHYSICIAN: Dr. Valdez INDICATION FOR THE PROCEDURE: 1. Tachycardia. 2. Gastrointestinal bleed. MEASUREMENTS DERIVED VALUES LV DIAMETER (LAX) NORMALS NORMALS Diastolic 5 (3.6-5.2) Eject. Fract. (60%+/-6%) Systolic (2.3-3.9) Diastolic Vol. % Shortening (0.22-0.42) Systolic Vol. Aortic Root 3.7 IVS THICKNESS Diastolic 1.4 (0.6-1.1) LVPW THICKNESS Diastolic 1.5 (0.6-1.1) LA DIAMETER Systolic 4 (2.1-3.7) DESCRIPTION: This study is technically difficult because of considerable pulmonary interference and because of considerable tachycardia during the study. Global left ventricular systolic function appears normal. No distinct regional wall motion abnormalities were seen. Left ventricular ejection fraction is approximately 75 to 80%. There appears to be mild to moderate concentric left ventricular hypertrophy. There is no evidence of any significant pericardial effusion. Doppler imaging showed trivial to mild tricuspid regurgitation. Pulmonary artery systolic pressure appears to be approximately 40 mmHg. There is no Doppler evidence of significant valvular stenosis. There is no evidence of any significant intracardiac shunt on this transthoracic echocardiographic study. Inferior vena cava does not appear to be dilated and appears mostly collapsed during this study. CONCLUSIONS: 1. Technically somewhat difficult study. 2. Hyperdynamic left ventricular systolic function with an ejection fraction of 75 to 80%. 3. Trivial tricuspid regurgitation. 4. Pulmonary artery systolic pressure is estimated approximately 40 mmHg. 5. No evidence of significant valvular stenosis. 6. No evidence of any significant pericardial effusion. Job ID: [id number] Dictated Date: 12/16/2016 11:51:41 Heavy Truck Mechanic Date: 12/17/2016 09:52:58 / [email or web address]
[2016-12-17] MEDS ORDERED: NS IV 500 ML 500 ML ONE (10:14)
--- NOTE | 2016-12-17 11:16 | PROCEDURE REPORT ---
PROCEDURE PHYSICIAN: GLENDA UPTON DATE OF PROCEDURE: PREOPERATIVE DIAGNOSES: 1. Anemia. 2. GI bleed. 3. Coronary disease. 4. Hypomagnesemia. 5. Leukocytosis. POSTOPERATIVE DIAGNOSES: 1. Duodenal ulcer x2. 2. Esophagitis. 3. Anemia. 4. GI bleed. 5. Coronary disease. PROCEDURES: 1. EGD injection. 2. EGD with biopsy. SURGEON: Dr. Brooks TANNER ASSIST: None. ANESTHESIA: IV sedation by VICE PRESIDENT REGULATORY. BLOOD LOSS: Scant. SPECIMEN: Biopsy from the first portion of the duodenum as well as a biopsy from the esophagus. POSTOPERATIVE CONDITION: Stable. INDICATION FOR THE PROCEDURE: The patient is a 66-year-old male who came in with GI bleed. Coffee-ground emesis. FINDINGS: The patient had esophagitis. He also had a large ulcer that looked like it was healed but he also had a small ulcer both of them in the first portion of duodenum just past the pylorus that looked like it had been recently bleeding. This was injected with epinephrine. PROCEDURE NOTE: After informed consent was obtained, the patient was brought to the endoscopy suite, placed in the left lateral decubitus disposition. He was administered IV sedation and then monitored by the VICE PRESIDENT REGULATORY. The scope was inserted down the mouth, oropharynx, and the esophagus. The distal esophagus appeared to have some esophagitis possibly candidiasis. It was almost a whitish plaque with a little bit of blood into the stomach and then down to the pylorus through the pylorus and into the pylorus to a very large ulcer. I elected to do a biopsy of the ulcer edge, little bit of bleeding and then noted what looked almost like a clot coming out of another small ulcer and this looked like what possibly had been causing the bleeding, coffee ground emesis. I elected to inject around this area with epinephrine 1:10,000 ratio; 4 ml were used. It looked like it actually kind of shrunk down a little bit. No bleeding. There was some minimal bleeding from the biopsy of the edge of the ulcer, but this also stopped. Retroflexed in the stomach and saw maybe a small hiatal hernia and then pulled the scope back into the distal portion of the esophagus. Again saw this whitish plaque and almost some bleeding, elected to do a biopsy here with some minimal bleeding and then removed the scope up the esophagus and out the mouth. The patient tolerated the procedure and transferred to recovery room in stable condition. Job ID: [id number] Dictated Date: 12/16/2016 15:06:42 Printing Roller Handler Date: 12/17/2016 11:02:43 / bryce [email or web address]
--- NOTE | 2016-12-17 11:37 | Progress Note ---
Subjective Subjective/Events-last exam Pt seen and examined, just had PICC line placed. NGT in place no output. Pt is somnolent and responds sporadically to questions. Does not appear to be in pain and denies pain. Review of Systems General: No Chills, No Night Sweats Cardiovascular: : PalpitationsNo: Chest Pain Gastrointestinal: No: Abdominal Pain, Nausea, Vomiting Objective Exam Vital Signs Date Time Temp Pulse Resp B/P Pulse Ox O2 Delivery O2 Flow Rate FiO2 12/17/16 10:15 97.1 88 14 134/62 97 12/17/16 10:00 89 14 134/62 94 Nasal Cannula 2.00 12/17/16 09:57 96.8 80 17 132/63 92 12/17/16 09:00 80 11 143/74 95 Nasal Cannula 2.00 12/17/16 08:00 76 5 141/68 97 Nasal Cannula 2.00 12/17/16 07:41 2.00 12/17/16 07:00 80 12/17/16 07:00 82 8 119/61 96 Nasal Cannula 2.00 12/17/16 06:00 80 12 118/62 96 Nasal Cannula 2.00 12/17/16 05:00 81 10 124/72 95 Nasal Cannula 2.00 12/17/16 04:00 133 26 117/59 100 Nasal Cannula 2.00 12/17/16 04:00 2.00 12/17/16 03:00 89 13 128/56 98 Nasal Cannula 2.00 12/17/16 02:00 89 11 133/92 95 Nasal Cannula 2.00 12/17/16 01:00 86 21 135/68 96 Nasal Cannula 2.00 12/17/16 01:00 86 12/16/16 23:00 94 24 115/62 96 Nasal Cannula 2.00 12/16/16 22:00 86 12 136/69 94 Nasal Cannula 2.00 12/16/16 21:00 88 16 130/64 92 Nasal Cannula 2.00 12/16/16 21:00 2.00 12/16/16 20:30 2.00 12/16/16 20:00 98.4 90 16 138/85 94 Nasal Cannula 2.00 12/16/16 19:04 94 12/16/16 19:04 94 13 97 Nasal Cannula 2.00 12/16/16 19:00 151 17 93/57 99 Nasal Cannula 2.00 12/16/16 19:00 151 12/16/16 18:00 146 26 103/66 97 Room Air 12/16/16 17:00 97 10 107/88 100 Room Air 12/16/16 16:00 98.2 93 12 140/72 97 Nasal Cannula 2.00 12/16/16 15:00 105 23 140/72 100 Room Air 12/16/16 14:00 12/16/16 13:00 105 9 95 Room Air 12/16/16 13:00 98 12/16/16 12:00 112 7 162/80 95 Room Air 12/16/16 11:40 98.4 106 12 150/85 95 Room Air I & O 12/17/16 07:00 Intake Total 2900 ml Balance 2900 ml Capillary Refill : General Appearance: Mild Distress Other (somnolent) HEENT: Other (nystagmus oral mucosa dry) Neck: Supple Respiratory: Lungs Clear Normal Breath Sounds No Accessory Muscle Use No Respiratory Distress Cardiovascular: Irregularly Irregular Tachycardia Gastrointestinal: normal bowel sounds soft no organomegaly no pulsatile mass tenderness (reports tenderness with deep palpation, but does not have voluntary guarding) Extremity: Pedal Edema Neurologic/Psychiatric: Other (somnolent but arousable) Skin: Pallor Lymphatic: No Adenopathy Results Lab Laboratory Tests 12/16/16 15:58: Ammonia 78H, Hematocrit 23L, Hemoglobin 7.8L 12/17/16 03:25: Hematocrit 22L, Hemoglobin 7.3L, Alanine Aminotransferase (ALT/SGPT) 22, Albumin 2.2L, Alkaline Phosphatase 56, Anion Gap 11, Aspartate Amino Transf (AST /SGOT) 36H, BUN/Creatinine Ratio 47, Basophils # (Auto) 0.0, Basophils (%) (Auto ) 0, Blood Urea Nitrogen 40H, Calcium Level 7.2L, Carbon Dioxide Level 19L, Chloride Level 122H, Creatinine 0.85, Eosinophils # (Auto) 0.1, Eosinophils (%) (Auto) 1, Estimat Glomerular Filtration Rate > 60, Glucose Level 124H, INR Comment 2.4H, Lymphocytes # (Auto) 3.4, Lymphocytes (%) (Auto) 17, Magnesium Level 2.1, Mean Corpuscular Hemoglobin 34, Mean Corpuscular Hemoglobin Concent 33, Mean Corpuscular Volume 103H, Mean Platelet Volume 11.8H, Monocytes # (Auto ) 2.0H, Monocytes (%) (Auto) 10, Neutrophils # (Auto) 13.9H, Neutrophils (%) ( Auto) 72, Phosphorus Level 2.4, Platelet Count 93L, Potassium Level 3.6, Prothrombin Time 25.9H, Red Blood Count 2.15L, Red Cell Distribution Width 16.0H , Sodium Level 152H, Total Bilirubin 3.1H, Total Protein 4.8L, White Blood Count 19.4H Microbiology 12/15/16 MRSA Screen - Final, Complete MRSA not isolated Assessment/Plan Assessment/Plan Assessment/Plan Anemia secondary to GI bleed - EGD showed one large healed ulcer, and one small one that looked like it had been bleeding recently (injected with epinephrine) Monitor H/H Q12 Coagulopathy - most likely secondary to cirrhosis. CAD - Cardiology consulted Hypomagnesemia - recheck labs and replace Hypernatremia & Hyperchloremia switch IVF, monitor and replace Hyperbilirubinemia ? secondary to liver disease or GI Bleed VTE prophylaxis contraindicated because of coagulopathy and bleeding duodenal ulcers A long discussion is needed with the POA, regarding status and end of life decisions. Hopefully Mr. Branch can improve and contribute to this discussion. Clinical Quality Measures DVT/VTE Risk/Contraindication: Risk Factor Score Per Nursin RFS Level Per Nursing on Admit: 4+=Very High Contraindications-Pharm: Other *list below* Other: upper GI bleed GLENDA UPTON DO Dec 17, 2016 11:37
[2016-12-17] MEDS ORDERED: IBUP100O27 PO (11:39)
[2016-12-17] MEDS ORDERED: FRSM10B60 PO (11:39)
[2016-12-17] MEDS ORDERED: CARV6.25 PO (11:39)
[2016-12-17] MEDS ORDERED: POTA20LI PO (11:39)
[2016-12-17] MEDS ORDERED: ASPI-983 PO (11:39)
--- NOTE | 2016-12-17 11:48 | Diagnostic Imaging Report ---
INDICATION: PICC line placement. Portable chest 11:15 AM. There is an NG tube that appears to be in the stomach. There are ECG leads overlying the chest. PICC line is not seen. Heart and mediastinum are normal. Lungs are clear. IMPRESSION: Negative chest. PICC line is not visible on the image of the chest. Dictated by: Dictated on workstation # [id number]
[2016-12-17] MEDS: LACTULOSE SYRUP 10GM/15ML (ENULOSE) 30ML UDC PO SCH ×3 (13:00→23:48)
[2016-12-17] MEDS ORDERED: TROUGH ORDER-PHARMACY XX NR (14:00)
--- NOTE | 2016-12-17 15:32 | Diagnostic Imaging Report ---
INDICATION: Evaluate PICC line placement. FINDINGS: The right upper extremity PICC line is coiled in the right axilla. There is cardiomegaly and some venous congestion. There is no pleural effusion or pneumothorax. Mediastinum is unremarkable. Nasogastric tube is in place. IMPRESSION: 1. The right upper extremity PICC line is coiled in the right axilla. 2. Cardiomegaly and some central pulmonary venous congestion. Dictated by: Dictated on workstation # [id number]
--- NOTE | 2016-12-17 15:33 | Diagnostic Imaging Report ---
INDICATION: Evaluate PICC line placement. FINDINGS: The right upper extremity PICC line remains coiled in the right axilla and has its tip directed laterally in the region of the axillary vein. There is cardiomegaly and venous congestion. There is no pleural effusion or pneumothorax. Mediastinum is unremarkable. IMPRESSION: Persistent abnormal placement of the right upper extremity PICC line as described. Cardiomegaly and some central pulmonary venous congestion. Dictated by: Dictated on workstation # [id number]
--- NOTE | 2016-12-17 15:38 | Diagnostic Imaging Report ---
INDICATION: Evaluate PICC line placement. FINDINGS: The right upper extremity PICC line remains coiled in the right axilla. Tip is directed laterally in the axillary vein. There is cardiomegaly and venous congestion. There is no pleural effusion or pneumothorax. IMPRESSION: Persistent abnormal placement of right upper extremity PICC line as described. Cardiomegaly and some central pulmonary venous congestion. Dictated by: Dictated on workstation # [id number]
[2016-12-18] VITALS (11 sets, daily range): BP systolic 137–197; BP diastolic 75–101
[2016-12-18] MEDS: NS IV 1000 ML 1,000 ML IV SCH ×2 (00:15→06:20)
[2016-12-18] MEDS: meTOprolol 5 MG/5 ML (LOPRESSOR) VIAL IV SCH ×3 (01:11→06:15)
[2016-12-18] MEDS: PANTOPRAZOLE INJECTION 200 MG in NS (IVPB) 50 ML IV SCH (02:07)
[2016-12-18 04:28] LABS: BASOPHILS % (AUTO) 0 % (0-10); EOSINOPHILS # (AUTO) 0.4 10^3/uL (0.0-0.3); EOSINOPHILS % (AUTO) 3 % (0-10); LYMPHOCYTES # (AUTO) 3.4 X 10^3 (1.0-4.0); LYMPHOCYTES % (AUTO) 27 % (12-44); MEAN CORPUSCULAR HEMOGLOBIN 33 PG (25-34); MEAN CORPUSCULAR HGB CONC 33 G/DL (32-36); MEAN CORPUSCULAR VOLUME 100 FL (80-99); MEAN PLATELET VOLUME 11.3 FL (7.4-10.4); MONOCYTES # (AUTO) 1.4 X 10^3 (0.0-1.0); MONOCYTES % (AUTO) 11 % (0-12); NEUTROPHILS # (AUTO) 7.4 X 10^3 (1.8-7.8); NEUTROPHILS % (AUTO) 58 % (42-75); PLATELET COUNT 75 10^3/uL (130-400); RED BLOOD COUNT 2.53 10^6/uL (4.35-5.85); RED CELL DISTRIBUTION WIDTH 18.4 % (10.0-14.5); WHITE BLOOD COUNT 12.7 10^3/uL (4.3-11.0)
[2016-12-18 04:55] LABS: ANION GAP 9 MMOL/L (5-14); BLOOD UREA NITROGEN 28 MG/DL (7-18); BUN/CREATININE RATIO 35; CALCIUM 7.2 MG/DL (8.5-10.1); CARBON DIOXIDE 19 MMOL/L (21-32); CHLORIDE 126 MMOL/L (98-107); CREATININE SERUM 0.81 MG/DL (0.60-1.30); GFR ESTIMATED > 60; GLUCOSE 101 MG/DL (70-105); MAGNESIUM 2.2 MG/DL (1.8-2.4); PHOSPHORUS 2.4 MG/DL (2.3-4.7); POTASSIUM 3.3 MMOL/L (3.6-5.0); SODIUM 154 MMOL/L (135-145)
[2016-12-18] MEDS: MAGNESIUM 1 GM/100 ML IVPB 100 ML IV SCH (05:48)
[2016-12-18] MEDS: KCL 20 MEQ TAB (K-DUR) PO SCH (06:00)
[2016-12-18] MEDS ORDERED: TROUGH ORDER-PHARMACY XX NR (06:00)
[2016-12-18] MEDS: POTASSIUM CL 10MEQ/50ML IVPB 50 ML IV SCH ×5 (06:00→10:17)
[2016-12-18] MEDS: AMPICILLIN/SULBACTAM INJECTION 1.5 GM in NS (IVPB) 50 ML IV SCH ×3 (06:15→21:36)
[2016-12-18] MEDS: SUCRALFATE 1 GM (CARAFATE) TAB NG SCH ×4 (06:15→21:36)
--- NOTE | 2016-12-18 07:23 | Pulmonary Progress Note ---
Subjective Subjective/Events-last exam PT is still very lethargic. Exam Exam Vital Signs Date Time Temp Pulse Resp B/P Pulse Ox O2 Delivery O2 Flow Rate FiO2 12/18/16 06:00 72 14 173/81 94 Room Air 12/18/16 05:00 84 14 178/89 94 Room Air 12/18/16 04:00 97.8 78 17 172/84 95 Room Air 12/18/16 03:00 78 22 181/86 96 Room Air 12/18/16 02:00 72 10 161/79 96 Room Air 12/18/16 01:59 97.4 73 161/79 12/18/16 01:00 79 17 185/93 98 Room Air 12/18/16 01:00 79 12/18/16 00:00 96.8 75 160/80 12/18/16 00:00 77 28 160/80 94 Room Air 12/18/16 00:00 96.8 12/17/16 23:46 97.4 75 168/80 12/17/16 23:06 97.2 82 169/90 12/17/16 23:00 81 17 169/90 95 Room Air 12/17/16 22:20 97.2 75 145/75 12/17/16 22:00 73 10 156/91 93 Room Air 12/17/16 21:04 98.0 82 177/83 12/17/16 21:02 98.0 84 177/83 97 12/17/16 21:00 85 13 145/75 95 Room Air 12/17/16 20:00 98.0 79 22 163/80 95 Room Air 12/17/16 19:26 97.4 83 20 163/91 97 12/17/16 19:00 80 12/17/16 19:00 80 16 155/84 97 Room Air 12/17/16 17:00 82 16 148/70 98 12/17/16 16:44 97.6 88 16 157/75 96 12/17/16 16:00 97.4 12/17/16 16:00 78 7 93 Nasal Cannula 2.00 12/17/16 15:00 82 9 99 Nasal Cannula 2.00 12/17/16 14:00 83 15 140/65 94 Nasal Cannula 2.00 12/17/16 13:00 123 25 139/69 93 Nasal Cannula 2.00 12/17/16 13:00 111 12/17/16 12:30 97.0 89 16 148/75 96 12/17/16 12:00 77 14 137/65 94 Nasal Cannula 2.00 12/17/16 12:00 97.4 12/17/16 11:00 81 9 132/69 97 Nasal Cannula 2.00 12/17/16 10:15 97.1 88 14 134/62 97 12/17/16 10:00 89 14 134/62 94 Nasal Cannula 2.00 12/17/16 09:57 96.8 80 17 132/63 92 12/17/16 09:00 80 11 143/74 95 Nasal Cannula 2.00 12/17/16 08:00 76 5 141/68 97 Nasal Cannula 2.00 12/17/16 08:00 97.8 12/17/16 07:41 2.00 I & O 12/18/16 07:00 Intake Total 1662.5 ml Output Total 50 ml Balance 1612.5 ml General Appearance: Mild Distress Other (somnolent) HEENT: Other (nystagmus oral mucosa dry) Neck: Supple Respiratory: Lungs Clear Normal Breath Sounds No Accessory Muscle Use No Respiratory Distress Cardiovascular: Irregularly Irregular Tachycardia Gastrointestinal: normal bowel sounds soft no organomegaly no pulsatile mass tenderness (reports tenderness with deep palpation, but does not have voluntary guarding) Extremity: Pedal Edema Neurologic/Psychiatric: Other (somnolent but arousable) Skin: Pallor Lymphatic: No Adenopathy Results Lab Laboratory Tests 12/16/16 09:55 12/16/16 15:58 12/17/16 03:25 12/18/16 04:10 Assessment/Plan Assessment/Plan Upper GIB -Dr. 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 Hepatic encephalopathy -Lactulose -monitor -repeat ammonia level liver cirrhosis Thrombocytopenia Debility hx of Cardiac arrest 05/11 HX of CVA 06/11 Pt can be made ICU stepdown status Clinical Quality Measures DVT/VTE Risk/Contraindication: Risk Factor Score Per Nursin RFS Level Per Nursing on Admit: 4+=Very High Contraindications-Pharm: Other *list below* Other: upper GI bleed GALE GAMA DO Dec 18, 2016 07:23
[2016-12-18 07:55] LABS: PROTHROMBIN TIME PATIENT 22.4 SEC (12.2-14.7)
--- NOTE | 2016-12-18 07:56 | Diagnostic Imaging Report ---
Clinical indication: Followup shortness of air. Exam: Portable chest x-ray upright view. Comparisons: Chest x-ray dated 12/17/2016. Again seen feeding tube overlying the mediastinum, the distal portion obscured and not well visualized. There is stable airspace opacification involving the left lung region which may represent lung infiltrate. There is no gross pleural effusion or pneumothorax. Stable cardiomegaly. Pulmonary vasculature is mildly prominent. The remainder of this exam shows no significant interval change compared to the prior study of comparison. Impression: 1.: Interval removal of the previously seen right PICC line. 2: Otherwise, stable chest x-ray exam with mild opacification of the left lung centered for lung infiltrate. 3: Stable cardiomegaly with mild pulmonary vascular congestion. Dictated by: Dictated on workstation # [id number]
[2016-12-18] MEDS: PANTOPRAZOLE 40 MG/10 ML (PROTONIX) VIAL IV SCH ×2 (08:28→21:36)
[2016-12-18] MEDS: LACTULOSE SYRUP 10GM/15ML (ENULOSE) 30ML UDC PO SCH ×4 (08:28→21:35)
--- NOTE | 2016-12-18 08:52 | Progress Note-Cardiology ---
Cardiology SOAP Progress Note Subjective: States he feels better today. No c/o CP, palpitations. C/O LE edema. Objective: I&O/Vital Signs Vital Sign - Last 12Hours 12/18/16 12/18/16 12/18/16 12/18/16 03:00 04:00 05:00 06:00 Temp 97.8 Pulse 78 78 84 72 Resp 22 17 14 14 B/P 181/86 172/84 178/89 173/81 Pulse Ox 96 95 94 94 O2 Delivery Room Air Room Air Room Air Room Air 12/18/16 12/18/16 12/18/16 07:00 08:00 12:18 Temp 98.2 97.7 Pulse 68 73 73 Resp 19 16 B/P 176/84 137/76 Pulse Ox 95 94 O2 Delivery Room Air Room Air Intake and Output 12/18/16 00:00 Intake Total 270 ml Balance 270 ml Weight (Pounds): 289 Weight (Ounces): 0.0 Weight (Calculated Kilograms): [phone] Constitutional: AAO x 3 Respiratory: No accessory muscle use, No respiratory distress, other (Fair to good air entry bilat, but diminished at the bases) Cardiovascular: regular rate-rhythm S1 and S2 systolic murmur (faint NAY at cardiac base) Gastrointestional: No tender, softNo guarding, audible bowel sounds other ( NG tube in place) Extremities: swelling (mild leg edema)No clubbing, No cyanosis Neurologic/Psychiatric: grossly intact Skin: No rash on exposed areas, No ulcerations on exposed areas Results/Procedures: Labs Laboratory Tests 12/18/16 04:10: Anion Gap 9, BUN/Creatinine Ratio 35, Basophils # (Auto) 0.0, Basophils (%) ( Auto) 0, Blood Urea Nitrogen 28H, Calcium Level 7.2L, Carbon Dioxide Level 19L, Chloride Level 126H, Creatinine 0.81, Eosinophils # (Auto) 0.4H, Eosinophils (% ) (Auto) 3, Estimat Glomerular Filtration Rate > 60, Glucose Level 101, Hematocrit 25L, Hemoglobin 8.3L, Lymphocytes # (Auto) 3.4, Lymphocytes (%) (Auto ) 27, Magnesium Level 2.2, Mean Corpuscular Hemoglobin 33, Mean Corpuscular Hemoglobin Concent 33, Mean Corpuscular Volume 100H, Mean Platelet Volume 11.3H , Monocytes # (Auto) 1.4H, Monocytes (%) (Auto) 11, Neutrophils # (Auto) 7.4, Neutrophils (%) (Auto) 58, Phosphorus Level 2.4, Platelet Count 75L, Potassium Level 3.3L, Red Blood Count 2.53L, Red Cell Distribution Width 18.4H, Sodium Level 154H, White Blood Count 12.7H 12/18/16 06:09: Vancomycin Level Trough 21.8H 12/18/16 07:35: Ammonia 64H, INR Comment 2.0H, Prothrombin Time 22.4H 12/18/16 10:45: Hematocrit 28L, Hemoglobin 9.0L 12/18/16 12:55: Lab Scanned Report Transfusion Reaction Form Microbiology 12/15/16 MRSA Screen - Final, Complete MRSA not isolated A/P: Assessment: * Impaired mental status or unwillingness to answer questions or poor recall of history - improved today * GI bleed - duodenal ulcers seen on EGD of 12-16-16 * H/O VT cardiac arrest in April 2015 ([facility]): details unavailable * Reports h/o IA for which cardiac cath was advised by Dr. Castillo at [facility] and he refused * Paroxysmal atrial fibrillation/flutter documented on an ECG of 12/16/16 at 9: 37 am. Currently NSR * Spontaneous coagulopathy (elevated PT/INR) * H/O cirrhosis of the liver * ? h/o CVA in April 2015 * Echo of 12/16/16: LVEF 75-80% (hyperdynamic) without wall motion abnormality, mild to mod conc LVH, PASP 40 mmHg * Thrombocytopenia and anemia - management per medical services * Non-compliance with medications * H/O dysphagia * H/O ETOH abuse Plan: * Complex management due to multiple co-morbidities as listed above and poor historian * Medical records we have available reviewed * Will treat tachycardia with iv beta-she, as tolerated * S/P EGD which showed duodenal ulcers * Not suitable for full oral or parenteral anticoag due to active GI bleed and due to spontaneous coagulopathy * More alert today and conversing appropriately * Hypertension not well controlled - he is now taking oral intake. Will resume his home dose of Coreg and adjust as tolerated * D/t h/o IA with suspected CAD (though cardiac cath was never carried out d/t pt refusal) advise resuming ASA 81mg when ok with surgical services * Replace potassium Physician Assessment Physician Assessment Lungs: fair to good air entry Cor: reg A&R * As documented in our note above * Change beta-she to oral * Continue to monitor labs RAJESH SHEPHEDR Dec 18, 2016 08:51 ZOEY PASTOR MD FACP [facility] Dec 18, 2016 14:05 MRSA not isolated A/P: Assessment: * Impaired mental status or unwillingness to answer questions or poor recall of history - improved today * GI bleed - duodenal ulcers seen on EGD of 12-16-16 * H/O VT cardiac arrest in April 2015 ([facility]): details unavailable * Reports h/o IA for which cardiac cath was advised by Dr. Castillo at [facility] and he refused * Paroxysmal atrial fibrillation/flutter documented on an ECG of 12/16/16 at 9: 37 am. Currently NSR * Spontaneous coagulopathy (elevated PT/INR) * H/O cirrhosis of the liver * ? h/o CVA in April 2015 * Echo of 12/16/16: LVEF 75-80% (hyperdynamic) without wall motion abnormality, mild to mod conc LVH, PASP 40 mmHg * Thrombocytopenia and anemia - management per medical services * Non-compliance with medications * H/O dysphagia * H/O ETOH abuse Plan: * Complex management due to multiple co-morbidities as listed above and poor historian * Medical records we have available reviewed * Will treat tachycardia with iv beta-she, as tolerated * S/P EGD which showed duodenal ulcers * Not suitable for full oral or parenteral anticoag due to active GI bleed and due to spontaneous coagulopathy * More alert today and conversing appropriately * Hypertension not well controlled - he is now taking oral intake. Will resume his home dose of Coreg and adjust as tolerated * D/t h/o IA with suspected CAD (though cardiac cath was never carried out d/t pt refusal) advise resuming ASA 81mg when ok with surgical services * Replace potassium RAJESH SHEPHERD Dec 18, 2016 08:51 * Will treat tachycardia with iv beta-she, as tolerated * S/P EGD which showed duodenal ulcers * Not suitable for full oral or parenteral anticoag due to active GI bleed and due to spontaneous coagulopathy * More alert today and conversing appropriately * Hypertension not well controlled - adjust BB - switch to oral as soon as taking oral intake * Replace potassium RAJESH SHEPHERD Dec 18, 2016 08:51
[2016-12-18] MEDS ORDERED: CARVEDILOL 6.25 MG (COREG) TAB PO NR (10:15)
[2016-12-18] MEDS: VANCOMYCIN 1500 MG/NS 500 ML IVPB IV SCH ×4 (10:16→22:19)
--- NOTE | 2016-12-18 12:40 | Progress Note-Hospitalist ---
Standard Progress Note Progress Notes/Assess & Plan Date Seen 12/18/16 Diagnosis 1.upper GI bleed-consult Dr. Guy for upper and endoscopy, needs evaluation for esophageal varices 2. Lab picture consistent with cirrhotic liver disease uncertain etiology 3. thrombocytopenia is likely secondary to number 2 4. Elevated bilirubin most likely secondary to number 2 5. Questionable history of heart disease or a heart attack-we'll consult Dr. Lang for further evaluation 6. leukocytosis 7. Long PT/INR most likely secondary to number 2 8. Hypomagnesemia Assess & Plan/Chief Complaint The patient is a 66-year-old white male referred to via [facility] over the weekend by Dr. ta at [place]. The concern was that GI bleeding. After arrival here this appeared to have a much bigger scope. The patient himself is a very poor historian. There was an unsubstantiated history of cardiac disease which prompted Dr. ta to refer the patient. The visible problem at the time of referral was that of GI bleeding. He had apparently vomited coffee-ground material and had a drop in hemoglobin. Laboratory of concern after arrival was that of the liver disease. The bilirubin was 3.2. The transaminases appeared normal. The sodium was initially 149 and has climbed to 154. The potassium has fallen from 3.8-3.3 during the hospitalization. The initial ammonia was 78 and has fallen slightly to 64 today. The coag studies showed a ProTime of 22.7 and an INR of 2.0. The subsequent draws have remained in the same realm. According to the nursing staff in the ICU he is more alert today than he has been. I asked him if he knew that he had liver disease he said O yes he had been hospitalized in [facility] in [place] for this. When asked who he had seen he was not clear but after giving him a list of the restaurant hospitality manager he picked Dr. Duque. Attempt will be made to get clarification about the etiology of his liver disease. There was a strong smell of bloody stools. The nurses confirmed that he had been having a black diarrhea. Hemoglobin appears to be stable at this point. Physical exam: The patient was alert but not absolutely clear about details. Lungs were clear to auscultation. CV was regular without murmur. The abdomen was quite large but soft palpation new Impression: Upper GI bleed which appears stable at this time. 2.advanced liver disease with bilirubin of 3, asterixis and ammonia of 70+, INR of 2.5 without anticoagulation. Plan: Sodium was in the 150s and therefore he has been switched to D5 W. Attempt will be made to get records from [place] in order to define his liver pathology. Labs Laboratory Tests 12/16/16 15:58 12/17/16 03:25 12/18/16 04:10 12/18/16 10:45 STU FIGUEREDO MD Dec 18, 2016 12:40
[2016-12-18] MEDS: D5W 1000 ML IV SOLUTION 1,000 ML IV SCH (14:21)
--- NOTE | 2016-12-18 16:30 | Progress Note ---
Subjective Subjective/Events-last exam Pt seen and examined. Much more alert today. Seems to be with it; only complaint is he wants more to eat. He does not remember that I did surgery on him. Review of Systems General: No Chills, No Night Sweats HEENT: No Head Aches Pulmonary: No Dyspnea, No Cough Cardiovascular: No: Chest Pain, Palpitations Gastrointestinal: No: Abdominal Pain, Nausea Objective Exam Vital Signs Date Time Temp Pulse Resp B/P Pulse Ox O2 Delivery O2 Flow Rate FiO2 12/18/16 15:58 97.0 12/18/16 13:00 68 12/18/16 12:18 97.7 73 16 137/76 94 Room Air 12/18/16 08:00 98.2 73 19 176/84 95 Room Air 12/18/16 07:00 68 12/18/16 07:00 2.00 12/18/16 06:00 72 14 173/81 94 Room Air 12/18/16 05:00 84 14 178/89 94 Room Air 12/18/16 04:00 97.8 78 17 172/84 95 Room Air 12/18/16 03:00 78 22 181/86 96 Room Air 12/18/16 02:00 72 10 161/79 96 Room Air 12/18/16 01:59 97.4 73 161/79 12/18/16 01:00 79 17 185/93 98 Room Air 12/18/16 01:00 79 12/18/16 00:00 96.8 75 160/80 12/18/16 00:00 77 28 160/80 94 Room Air 12/18/16 00:00 96.8 12/17/16 23:46 97.4 75 168/80 12/17/16 23:06 97.2 82 169/90 12/17/16 23:00 81 17 169/90 95 Room Air 12/17/16 22:20 97.2 75 145/75 12/17/16 22:00 73 10 156/91 93 Room Air 12/17/16 21:04 98.0 82 177/83 12/17/16 21:02 98.0 84 177/83 97 12/17/16 21:00 85 13 145/75 95 Room Air 12/17/16 20:00 98.0 79 22 163/80 95 Room Air 12/17/16 19:26 97.4 83 20 163/91 97 12/17/16 19:00 80 12/17/16 19:00 80 16 155/84 97 Room Air 12/17/16 17:00 82 16 148/70 98 12/17/16 16:44 97.6 88 16 157/75 96 I & O 12/18/16 07:00 Intake Total 1662.5 ml Output Total 50 ml Balance 1612.5 ml Capillary Refill : General Appearance: No Apparent Distress Obese HEENT: PERRL/EOMI Pharynx Normal Other (nystagmus oral mucosa dry) Neck: Supple Respiratory: Lungs Clear Normal Breath Sounds No Accessory Muscle Use No Respiratory Distress Cardiovascular: Irregularly Irregular Tachycardia Gastrointestinal: normal bowel sounds soft no organomegaly no pulsatile mass tenderness (reports tenderness with deep palpation, but does not have voluntary guarding) Extremity: Pedal Edema Neurologic/Psychiatric: Alert Oriented x3 Other (appears to have sequelae of old stroke with facial droop) Skin: Pallor Lymphatic: No Adenopathy Results Lab Laboratory Tests 12/18/16 04:10: Anion Gap 9, BUN/Creatinine Ratio 35, Basophils # (Auto) 0.0, Basophils (%) ( Auto) 0, Blood Urea Nitrogen 28H, Calcium Level 7.2L, Carbon Dioxide Level 19L, Chloride Level 126H, Creatinine 0.81, Eosinophils # (Auto) 0.4H, Eosinophils (% ) (Auto) 3, Estimat Glomerular Filtration Rate > 60, Glucose Level 101, Hematocrit 25L, Hemoglobin 8.3L, Lymphocytes # (Auto) 3.4, Lymphocytes (%) (Auto ) 27, Magnesium Level 2.2, Mean Corpuscular Hemoglobin 33, Mean Corpuscular Hemoglobin Concent 33, Mean Corpuscular Volume 100H, Mean Platelet Volume 11.3H , Monocytes # (Auto) 1.4H, Monocytes (%) (Auto) 11, Neutrophils # (Auto) 7.4, Neutrophils (%) (Auto) 58, Phosphorus Level 2.4, Platelet Count 75L, Potassium Level 3.3L, Red Blood Count 2.53L, Red Cell Distribution Width 18.4H, Sodium Level 154H, White Blood Count 12.7H 12/18/16 06:09: Vancomycin Level Trough 21.8H 12/18/16 07:35: Ammonia 64H, INR Comment 2.0H, Prothrombin Time 22.4H 12/18/16 10:45: Hematocrit 28L, Hemoglobin 9.0L 12/18/16 12:55: Lab Scanned Report Transfusion Reaction Form Microbiology 12/15/16 MRSA Screen - Final, Complete MRSA not isolated Assessment/Plan Assessment/Plan Assessment/Plan Anemia secondary to GI bleed - EGD showed one large healed ulcer, and one small one that looked like it had been bleeding recently (injected with epinephrine) Monitor H/H Q12 Coagulopathy - most likely secondary to cirrhosis. CAD - Cardiology consulted Hypomagnesemia - recheck labs and replace Hypernatremia & Hyperchloremia switch IVF, monitor and replace Hyperbilirubinemia ? secondary to liver disease or GI Bleed VTE prophylaxis contraindicated because of coagulopathy and bleeding duodenal ulcers I had a discussion with the pt regarding status and end of life decisions. I asked him if he would want surgery to "fix" the ulcers that I found on EGD. This would be a Gastric resection, which is a large surgery. He stated he would rather avoid surgery. I told him that it is possible for one of the ulcers to rupture and he could bleed to ; however, he is a poor surgical candidate and could during surgery. He understands he could if the ulcers ruptured, but he does not want surgery at this time. I will sign off and reconsult if needed. Clinical Quality Measures DVT/VTE Risk/Contraindication: Risk Factor Score Per Nursin RFS Level Per Nursing on Admit: 4+=Very High Contraindications-Pharm: Other *list below* Other: upper GI bleed GLENDA UPTON DO Dec 18, 2016 16:30
[2016-12-18] MEDS: ONDANSETRON 4 MG/2 ML (SDV) Z0FRAN IVP PRN (18:41)
[2016-12-18] MEDS: CARVEDILOL 6.25 MG (COREG) TAB PO SCH (21:35)
[2016-12-19] VITALS (7 sets, daily range): BP systolic 128–170; BP diastolic 73–106
[2016-12-19 04:16] LABS: BASOPHILS # (AUTO) 0.1 10^3/uL (0.0-0.1); BASOPHILS % (AUTO) 0 % (0-10); EOSINOPHILS # (AUTO) 0.4 10^3/uL (0.0-0.3); EOSINOPHILS % (AUTO) 3 % (0-10); LYMPHOCYTES # (AUTO) 2.8 X 10^3 (1.0-4.0); LYMPHOCYTES % (AUTO) 21 % (12-44); MEAN CORPUSCULAR HEMOGLOBIN 34 PG (25-34); MEAN CORPUSCULAR HGB CONC 34 G/DL (32-36); MEAN CORPUSCULAR VOLUME 99 FL (80-99); MEAN PLATELET VOLUME 11.3 FL (7.4-10.4); MONOCYTES # (AUTO) 1.5 X 10^3 (0.0-1.0); MONOCYTES % (AUTO) 11 % (0-12); NEUTROPHILS # (AUTO) 8.6 X 10^3 (1.8-7.8); NEUTROPHILS % (AUTO) 64 % (42-75); PLATELET COUNT 81 10^3/uL (130-400); RED CELL DISTRIBUTION WIDTH 18.5 % (10.0-14.5); WHITE BLOOD COUNT 13.4 10^3/uL (4.3-11.0)
[2016-12-19 04:42] LABS: AMMONIA 49 UMOL/L (11-32); ANION GAP 9 MMOL/L (5-14); BLOOD UREA NITROGEN 21 MG/DL (7-18); BUN/CREATININE RATIO 26; CALCIUM 6.9 MG/DL (8.5-10.1); CARBON DIOXIDE 15 MMOL/L (21-32); CHLORIDE 118 MMOL/L (98-107); CREATININE SERUM 0.82 MG/DL (0.60-1.30); GFR ESTIMATED > 60; GLUCOSE 130 MG/DL (70-105); MAGNESIUM 2.1 MG/DL (1.8-2.4); PHOSPHORUS 2.6 MG/DL (2.3-4.7); POTASSIUM 2.9 MMOL/L (3.6-5.0); SODIUM 142 MMOL/L (135-145)
[2016-12-19] MEDS: AMPICILLIN/SULBACTAM INJECTION 1.5 GM in NS (IVPB) 50 ML IV SCH (05:34)
[2016-12-19] MEDS: SUCRALFATE 1 GM (CARAFATE) TAB NG SCH ×4 (05:34→21:24)
[2016-12-19] MEDS: MAGNESIUM 1 GM/100 ML IVPB 100 ML IV SCH (05:44)
[2016-12-19] MEDS ORDERED: POTASSIUM CL 10MEQ/50ML IVPB 50 ML IV ONE (06:00)
[2016-12-19] MEDS: POTASSIUM CL 10MEQ/50ML IVPB 50 ML IV SCH ×4 (07:07→11:06)
--- NOTE | 2016-12-19 07:35 | Pulmonary Progress Note ---
Subjective Subjective/Events-last exam Hb has been stable. RN states he is still having bloody stools. Exam Exam Vital Signs Date Time Temp Pulse Resp B/P Pulse Ox O2 Delivery O2 Flow Rate FiO2 12/19/16 04:00 97.5 75 20 156/78 96 Room Air 12/19/16 01:00 72 12/19/16 00:00 97.6 79 19 153/76 95 Room Air 12/18/16 20:00 98.9 80 20 155/75 95 Room Air 12/18/16 19:00 92 12/18/16 15:58 97.0 12/18/16 13:00 68 12/18/16 12:18 97.7 73 16 137/76 94 Room Air 12/18/16 08:00 98.2 73 19 176/84 95 Room Air I & O 12/19/16 07:00 Intake Total 4150 ml Output Total 400 ml Balance 3750 ml General Appearance: No Apparent Distress Obese HEENT: PERRL/EOMI Pharynx Normal Other (nystagmus oral mucosa dry) Neck: Supple Respiratory: Lungs Clear Normal Breath Sounds No Accessory Muscle Use No Respiratory Distress Cardiovascular: Irregularly Irregular Tachycardia Gastrointestinal: normal bowel sounds soft no organomegaly no pulsatile mass tenderness (reports tenderness with deep palpation, but does not have voluntary guarding) Extremity: Pedal Edema Neurologic/Psychiatric: Alert Other (appears to have sequelae of old stroke with facial droop) Skin: Pallor Lymphatic: No Adenopathy Results Lab Laboratory Tests 12/18/16 04:10 12/18/16 10:45 12/18/16 17:10 12/18/16 23:05 12/19/16 04:00 Assessment/Plan Assessment/Plan Upper GIB -Dr. 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 I am going to sign off please call with any questions or concerns. Clinical Quality Measures DVT/VTE Risk/Contraindication: Risk Factor Score Per Nursin RFS Level Per Nursing on Admit: 4+=Very High Contraindications-Pharm: Other *list below* Other: upper GI bleed GALE GAMA DO Dec 19, 2016 07:35
[2016-12-19] MEDS ORDERED: TROUGH ORDER-PHARMACY XX NR (08:00)
[2016-12-19] MEDS: LACTULOSE SYRUP 10GM/15ML (ENULOSE) 30ML UDC PO SCH ×4 (08:12→21:24)
[2016-12-19] MEDS: CARVEDILOL 6.25 MG (COREG) TAB PO SCH (08:12)
[2016-12-19] MEDS: PANTOPRAZOLE 40 MG/10 ML (PROTONIX) VIAL IV SCH ×2 (08:12→21:24)
--- NOTE | 2016-12-19 08:53 | Progress Note-Cardiology ---
Cardiology SOAP Progress Note Subjective: Sitting up in bed today eating morning meal. He states he feels better today. No c/o CP, palpitations, syncope or near syncope. Objective: I&O/Vital Signs Vital Sign - Last 12Hours 12/19/16 12/19/16 12/19/16 12/19/16 04:00 07:00 08:08 11:32 Temp 97.5 97.1 97.7 Pulse 75 72 80 85 Resp 20 16 18 B/P 156/78 160/73 170/106 Pulse Ox 96 96 96 O2 Delivery Room Air Room Air Room Air 12/19/16 13:00 Pulse 65 Intake and Output 12/19/16 00:00 Intake Total 3000 ml Output Total 400 ml Balance 2600 ml Weight (Pounds): 300 Weight (Ounces): 0.0 Weight (Calculated Kilograms): 136.973217 Constitutional: AAO x 3 Respiratory: No accessory muscle use, No respiratory distress, other (Fair to good air entry bilat, but diminished at the bases) Cardiovascular: regular rate-rhythm S1 and S2 systolic murmur (faint NAY at cardiac base) Gastrointestional: No tender, softNo guarding, audible bowel sounds other ( NG tube in place) Extremities: swelling (mild leg edema)No clubbing, No cyanosis Neurologic/Psychiatric: grossly intact Skin: No rash on exposed areas, No ulcerations on exposed areas Results/Procedures: Labs Laboratory Tests 12/18/16 17:10: Hematocrit 25L, Hemoglobin 8.1L 12/18/16 23:05: Hematocrit 25L, Hemoglobin 8.4L 12/19/16 04:00: Hematocrit 26L, Hemoglobin 8.7L, Ammonia 49H, Anion Gap 9, BUN/Creatinine Ratio 26, Basophils # (Auto) 0.1, Basophils (%) (Auto) 0, Blood Urea Nitrogen 21H, Calcium Level 6.9L, Carbon Dioxide Level 15L, Chloride Level 118H, Creatinine 0.82, Eosinophils # (Auto) 0.4H, Eosinophils (%) (Auto) 3, Estimat Glomerular Filtration Rate > 60, Glucose Level 130H, Lymphocytes # (Auto) 2.8, Lymphocytes (%) (Auto) 21, Magnesium Level 2.1, Mean Corpuscular Hemoglobin 34, Mean Corpuscular Hemoglobin Concent 34, Mean Corpuscular Volume 99, Mean Platelet Volume 11.3H, Monocytes # (Auto) 1.5H, Monocytes (%) (Auto) 11, Neutrophils # ( Auto) 8.6H, Neutrophils (%) (Auto) 64, Phosphorus Level 2.6, Platelet Count 81L , Potassium Level 2.9L, Red Blood Count 2.60L, Red Cell Distribution Width 18.5H , Sodium Level 142, White Blood Count 13.4H 12/19/16 08:04: Vancomycin Level Trough 18.3 12/19/16 10:31: Hematocrit 25L, Hemoglobin 8.4L Microbiology 12/15/16 MRSA Screen - Final, Complete MRSA not isolated A/P: Assessment: * Impaired mental status or unwillingness to answer questions or poor recall of history - improved today * GI bleed - duodenal ulcers seen on EGD of 12-16-16 * H/O multiple GI bleeds including at least 2 admissions to [facility] with GI bleed * Vague mention in [facility] records of [place] cardiac arrest in April 2015 without any clear documentation * Reports h/o [place] for which cardiac cath was advised by Dr. Castillo at [facility] and he refused * Paroxysmal atrial fibrillation/flutter documented on an ECG of 12/16/16 at 9: 37 am. Currently NSR (H/O previous documented a-fib with RVR during hospitalization at [facility] in April 2015) * Spontaneous coagulopathy (elevated PT/INR) * H/O cirrhosis of the liver * ? h/o CVA in April 2015 * Echo of 12/16/16: LVEF 75-80% (hyperdynamic) without wall motion abnormality, mild to mod conc LVH, PASP 40 mmHg * Thrombocytopenia and anemia - management per medical services * Non-compliance with medications * H/O dysphagia * H/O ETOH abuse Plan: * Complex management due to multiple co-morbidities as listed above and poor historian * Medical records we have from [facility] available reviewed * HR and blood pressure not well controlled - we will change Coreg to Toprol and increase the dose * S/P EGD which showed duodenal ulcers - management per medical/surgical services * Not suitable for full oral or parenteral anticoag due to GI bleed (with previous h/o of GI bleed as well), spontaneous coagulopathy and thrombocytopenia * More alert today and conversing appropriately * Vague mention in [facility] records of [place] cardiac arrest with no clear documentation in [facility] records we have available - will try to obtain D/C Summary of May 2015 * Replace potassium Physician Assessment Physician Assessment Lungs: good bilat air entry Cor: reg A&R * As documented in our note above * Management remains complex due to multiple comorbidities and lack of pt insight into his medical issues RAJESH SHEPHERD Dec 19, 2016 08:52 ZOEY PASTOR MD [facility] Dec 19, 2016 15:30 * S/P EGD which showed duodenal ulcers * Not suitable for full oral or parenteral anticoag due to GI bleed, spontaneous coagulopathy and thrombocytopenia * More alert today and conversing appropriately * Hypertension not well controlled - he is now taking oral intake. Will resume his home dose of Coreg and adjust as tolerated * D/t h/o [place] with suspected CAD (though cardiac cath was never carried out d/t pt refusal) advise resuming ASA 81mg when ok with surgical services\ * Replace potassium RAJESH SHEPHERD Dec 19, 2016 08:52
[2016-12-19] MEDS ORDERED: meTOproloL SUCCINATE 50 MG (TOPROL XL) TAB PO NR ×2 (09:00→10:00)
--- NOTE | 2016-12-19 09:04 | Diagnostic Imaging Report ---
EXAMINATION: Portable erect AP chest at 0516 hours. INDICATION: Shortness of breath. FINDINGS: The appearance of the chest has improved since the prior exam of 12/18/2016 as the left midlung and left lung base do seem better aerated. There is only minimal (if any) residual atelectasis/pneumonia still present. The right lung is clear. The heart is enlarged but the heart also seems somewhat less prominent than on the prior exam. Even so, there may still be an element of mild pulmonary congestion. The mediastinum is not widened. The osseous structures are intact. The NG line seen on the previous study has been removed. IMPRESSION: The appearance of the chest has improved since the prior exam as the left lung does seem much better aerated and the heart has decreased in size somewhat. A followup study would be recommended for continued evaluation. Dictated by: Dictated on workstation # [id number]
[2016-12-19] MEDS: VANCOMYCIN 1500 MG/NS 500 ML IVPB IV SCH ×2 (09:17)
[2016-12-19] MEDS: D5W 1000 ML IV SOLUTION 1,000 ML IV SCH (09:17)
--- NOTE | 2016-12-19 11:00 | Physical Therapy Evaluation ---
PT Evaluation-General Medical Diagnosis Admission Date Dec 15, 2016 at 21:43 Medical Diagnosis: Upper GI bleed Onset Date: Dec 15, 2016 Therapy Diagnosis Therapy Diagnosis: weakness; abn gait Height/Weight Height (Feet): 6 Height (Inches): 3.00 Weight (Pounds): 300 Weight (Ounces): 0.0 Precautions Precautions/Isolations: Standard Precautions Referral Physician: Inessa Reason for Referral: Evaluation/Treatment Medical History Pertinent Medical History: CAD, GERD, HTN, [place] Current History Recent transfer from [facility] due to GI bleed; prior to that admit he had been home "a few weeks" but was at a nursing center in [facility] prior to that. Reviewed History: Yes Social History Home: Apartment Current Living Status: Alone Prior/Core FIM Prior Level of Function Functional [place] Measure 0=Not Assessed/NA 4=Minimal Assistance 1=Total Assistance 5=Supervision or Setup 2=Maximal Assistance 6=Modified [place] 3=Moderate Assistance 7=Complete [place] Pt reports he primarily stays in his apartment, uses a 4WW, doesnt drive, cares for himself, his sister in law assists with shopping and outside needs. Sleeps in a lift recliner currently because he doesnt have a bed. PT Evaluation-Current Subjective Agrees to PT. Once up, reports it feels good to be out of bed. Pt/Family Goals Home in [place]. Objective Patient Orientation: Person, Place, Time, Situation Problem Solving: Fair Attachments: IV ROM/Strength ROM Lower Extremities WFL; some limitations due to excess soft tissue but functional Strenght Lower Extremities grossly 4-/5 B LE's Integumentary/Posture Integumentary intact Bowel Incontinence: Yes Bladder Incontinence: No Posture normal and symmetrical in standing Neuromuscular (Tone, Coordination, Reflexes) no noted functional deficits Sensory Vision: Functional Hearing: Functional Hand Dominance: Right Sensation Right Lower Extremit: Intact Sensation Left Lower Extremity: Intact Transfers Functional [place] Measure 0=Not Assessed/NA 4=Minimal Assistance 1=Total Assistance 5=Supervision or Setup 2=Maximal Assistance 6=Modified [place] 3=Moderate Assistance 7=Complete [place] Transfers (B, C, W/C) (FIM): 4 (assist with legs. ) Supine to/from Sit: 4 Sit to/from Stand: 4 (cues for sequencing ) bed t/f WC(FIM only if WC use): 4 (SPT bed to chair with FWW with min assist) Sit to stand an additional time as he was incont of bowel and stood 4-5 min to be cleaned. Then stood again to urinate in the urinal. Gait Mode of Locomotion: Walk Anticipated Mode of Locomotion: Walk Comments/Gait Description Did not ambulate this visit. Balance Sitting Static: Good Sitting Dynamic: Fair Standing Static: Fair Standing Dynamic: Fair Treatment Sit to stand training as well as static standing activities. Assessment/Needs Presents with a decline in functional strength and mobility due to GI bleed. He demonstrates strength, functional gait and transfer as well as balance deficits. His balance seems to be impaired as well. He has a history of AR and HTN which paired with current complications may impair his recovery. He is a good candidate for skilled PT intervention to work on functional mobility to allow him to return home as before. Rehab Potential: Good PT Traffic Signal Mechanic Goals Nursing Home Goals PT Nursing Home Goals Time Frame: Dec 25, 2016 Transfers (B,C,W/C) (FIM): 5 Gait (FIM): 2 Gait distance (FIM): 4=759-60 ft Gait Assistive Device: FWW PT Plan Problem List Problem List: Activity Tolerance, Functional Strength, Safety, Gait, Transfer, Bed Mobility Treatment/Plan Treatment Plan: Continue Plan of Care Treatment Plan: Bed Mobility, Education, Functional Activity Katey, Functional Strength, Gait, Safety, Therapeutic Exercise, Transfers Treatment Duration: Dec 25, 2016 # of days/week 5-6 Visits Per Week: 5-6 Pt/Family Agrees w/Plan: Yes Safety Risks/Education Patient Education: Transfer Techniques Teaching Recipient: Patient Teaching Methods: Demonstration, Discussion Response to Teaching: Reinforcement Needed Discharge Recommendations Therapy D/C Recommendations: Alf (TCU/NH) (PT) Time/GCodes Time In: 1015 Time Out: 1050 Total Billed Treatment Time: 35 Total Billed Treatment visit EV 15 FA 20 MARIAM RAJAN PT Dec 19, 2016 11:00
--- NOTE | 2016-12-19 11:26 | Progress Note-Hospitalist ---
Progress Note HPI/CC on Admission this is 66-year-old white male who is a poor historian. He was accepted in transfer from [facility] last night at the request of Dr. Coles because of GI bleeding and recent suspected cardiac history. The patient said he had recently had a heart attack and then went to [facility] to recover. He was discharged last Saturday and went home. He is uncertain of his medications but said he was taking some. He denies having had any stroke or problems with his liver that he knows of in the past. He had become ill yesterday and then began vomiting and could not control it. Vomitus was coffee ground and overnight his hemoglobin has dropped. At the time of my interview he is coughing some, thirsty, but otherwise in no distress. Progress Notes/Assess & Plan Date Seen 12/19/16 Diagonsis/Assessment & Plan Chart Review: No fever Vitals table BP 160/73 WBC 13.4 Hgb 8.7 Platelets 81k Received 2 units of blood and 2 units of FFP thus far recreation establishment manager: RN states that pt is much improved but has black stools. Pt had EGD and had one bleeding ulcer, likely the cause of black stools. Dr. Wylie switched pt to step -down status yesterday. Patient Interview: Pt states that he feels improved today. Pt does not have a PCP. Pt lives alone at home. Physical exam stable. Pt was tired during visit. Pt works at a [employer] since 1971 in [place]. Pt states he never smoked or consumed excessive ETOH. Pt has not yet worked with PT. Pt was previously hospitalized at [place] and then was moved to [facility] for recovery. No fever, vital signs stable, pleasant, more alert and oriented but flat affect Regular rate and rhythm, clear to auscultation bilaterally No edema Laboratory Tests 12/18/16 17:10 12/18/16 23:05 12/19/16 04:00 12/19/16 10:31 Assessment: 1. upper GI bleed-Dr. Guy performed EGD and found to be secondary to duodenal ulcers s/p 2 units of packed cells and 2 units of FFP 2. Cirrhotic liver disease uncertain etiology-now with grade 3 hepatic encephalopathy 3. thrombocytopenia is likely secondary to number 2 4. Elevated bilirubin most likely secondary to number 2 5. Questionable history of heart disease or a heart attack-we'll consult Dr. Lang for further evaluation 6. leukocytosis-on vancomycin and Zosyn 7. Long PT/INR most likely secondary to number 2 8. Hypomagnesemia 9. atrial fibrillation with poor rate control-treatment per Dr. Tomas 10. hypernatremia Plan: Move to 4th Monitor stools due to blood contents NH tomorrow Poor prognosis Scribed by Cristiano Lord under the direct supervision of Dr. Demarco. SANJANA DEMARCO DO Dec 19, 2016 11:26
--- NOTE | 2016-12-19 15:10 | Occupational Therapy Eval ---
OT Evaluation-General/PLF Medical Diagnosis Admission Date Dec 15, 2016 at 21:43 Medical Diagnosis: Upper GI bleed Onset Date: Dec 15, 2016 Therapy Diagnosis Therapy Diagnosis: Weakness, Decreased ADL skills Height/Weight Height (Feet): 6 Height (Inches): 3.00 Weight (Pounds): 300 Weight (Ounces): 0.0 Precautions Precautions/Isolations: Standard Precautions Safety Interventions: Bed Exit Alarm, Reorient-Attempt, Reorient-PRN Weight Bear Status Weight Bearing Restriction: Weight Bearing/Tolerated Referral Physician: Inessa Referral Reason: Activity Tolerance, Self Care, Evaluation/Treatment, Strengthening/ROM Medical History Pertinent Medical History: CAD, GERD, HTN, [place] Additional Medical History reflux Current History Pt. began vomitting at home. Pt. is somewhat of a poor historian. States that he has been in a half-way, but can't state for how long. Also, does not know how long he was at home before this episode happened. States that his sister in law brought him to the hospital. Social History Home: Apartment Current Living Status: Alone Entry Into Home: Ramp ADL-Prior Level of Function ADL PLOF Comments Pt. states that he was able to bathe and dress a little in half-way, but that he is unsure of how much help they provided him. Does not know when he went home from the half-way. DME/Equipment: Bath Chair, Bedside Commode, Grab Bars, Tub/Shower DME/Equipment Comments Pt. states that he has a [address] Self: No OT Current Status Subjective Pt. does not report any pain to this clinician. Appearance Pt. is in bed. Agrees to work with OT. Mental Status/Objective Patient Orientation: Unable to Assess Pt. demonstrates poor memory at times. Current Hand Dominance: Right Upper Extremity ROM WFL Upper Extremity Coordination intact Upper Extremity Strength Pt. demonstrates 3/5 bilateral UE strength. ADL-Treatment Functional [place] Measure 0=Not Assessed/NA 4=Minimal Assistance 1=Total Assistance 5=Supervision or Setup 2=Maximal Assistance 6=Modified [place] 3=Moderate Assistance 7=Complete IndependenceIRFPAI Quality Coding Scale 6 Independent with activity with or without an assistive device 5 Patient requires set up or clean up by helper. Patient completes activity by themselves 4 Supervision or touching assist (CGA). [place] provide cues , steadying assist 3 The helper provides less than half the effort to complete the activity 2 The helper provides more than half the effort to complete the activity 1 Dependent. The helper does all the effort to complete an activity 7 Patient refused to complete or attempt activity 9 The patient did not perform the activity before the current illness or injury 88 Not attempted due to Medical conditions or safety concerns Eating (FIM): 5 (Pt. feeding self when OT came into room.) Bathing (FIM): 3 (Pt. able to wash chest, arms, and part of legs. required assist to was rear casandra area in bed, and bilateral feet sitting on side of bed. Noted that pt. had dirt in between toes. Was unkempt in this area.) Lower Body Dressing (FIM): 1 (Pt. dependent with socks.) Pt. able to transfer from supine-sit with mod assist. Pt. handed washcloths and instructed to wash parts of body. Requires frequent cues. Unable to reach feet. Noted that toes and feet had not been cleaned properly for some time. Pt. transferred back to supine with mod assist. Able to reach front casandra area from this point, but unable to reach rear casandra area. Pt. had clean brief on that had not been soiled. Re-positioned in bed at end of treatment. Education OT Patient Education: Correct positioning, Modified ADL techniques, Progress toward Goal/Update tx plan, Purpose of tx/functional activities, Reviewed precautions, Rehab process, Transfer techniques Teaching Recipient: Patient Teaching Methods: Demonstration, Discussion Response to Teaching: Return Demonstration OT Short Term Goals Short Term Goals Time Frame: Jan 02, 2017 Eating(FIM): 5 Grooming(FIM): 5 Bathing(FIM): 3 Upper Body Dressing(FIM): 4 Lower Body Dressing(FIM): 4 Toileting(FIM): 4 Transfers (B,C,W/C) (FIM): 5 Toilet/Commode Transfer(FIM): 5 Shower Transfer(FIM): 4 Additional Short Term Goals: 1-Demonstrate ADL Tasks, 2-Verbalize Understanding , 3-ImproveStrength/Katey 1=Demonstrate adherence to instructed precautions during ADL tasks. 2=Patient will verbalize/demonstrate understanding of assistive devices/ modifications for ADL. 3=Patient will improve strength/tolerance for activity to enable patient to perform ADL's. OT Custodial Goals [employer]ations Associate Goals Time Frame: Jan 16, 2017 Eating (FIM): 6 Grooming(FIM): 6 Bathing(FIM): 5 Upper Body Dressing(FIM): 6 Lower Body Dressing(FIM): 6 Toileting(FIM): 6 Transfers (B,C,W/C) (FIM): 6 Toilet/Commode Transfer(FIM): 6 Shower Transfer(FIM): 5 Additional Goals: 1-Demonstrate ADL Tasks, 2-Verbalize Understanding, 3- ImproveStrength/Katey 1=Demonstrate adherence to instructed precautions during ADL tasks. 2=Patient will verbalize/demonstrate understanding of assistive devices/ modifications for ADL. 3=Patient will improve strength/tolerance for activity to enable patient to perform ADL's. OT Education/Plan Problem List/Assessment Assessment: Decreased Activ Tolerance, Decreased Safety Aware, Decreased UE Strength, Dependent Transfers, Impaired Bed Mobility, Impaired Cognition, Impaired Coordination, Impaired Funct Balance, Impaired I ADL's, Impaired Self- Care Skills Discharge Recommendations Plan/Recommendations: Continue POC Therapy D/C Recommendations: Home w/ Family Support, Occupational Therapy Home Care, Scheduled Assistance Barriers to Progress Cognition Treatment Plan/Plan of Care Treatment,Training & Education: Yes Patient would benefit from OT for education, treatment and training to promote independence in ADL's, mobility, safety and/or upper extremity function for ADL' s. Plan of Care: ADL Retraining, Functional Mobility, UE Funct Exercise/Act Treatment Duration: Jan 16, 2017 # of days/week 5-6 Visits Per Week: 5-6 Agreement: Yes Rehab Potential: Good Time/GCodes Start Time: 08:30 Stop Time: 08:45 Total Time Billed (hr/min): 15 Billed Treatment Time 1, JENNA Kingston OT Dec 19, 2016 15:10
[2016-12-20 00:47] VITALS: BP 124/72
[2016-12-20] MEDS: ONDANSETRON 4 MG/2 ML (SDV) Z0FRAN IVP PRN ×3 (03:09→23:48)
[2016-12-20] MEDS: D5W 1000 ML IV SOLUTION 1,000 ML IV SCH (03:59)
[2016-12-20 04:00] VITALS: BP 152/81
[2016-12-20] MEDS: SUCRALFATE 1 GM (CARAFATE) TAB NG SCH ×4 (05:48→20:08)
[2016-12-20 07:31] LABS: BASOPHILS % (AUTO) 0 % (0-10); EOSINOPHILS # (AUTO) 0.4 10^3/uL (0.0-0.3); EOSINOPHILS % (AUTO) 2 % (0-10); LYMPHOCYTES # (AUTO) 2.2 X 10^3 (1.0-4.0); LYMPHOCYTES % (AUTO) 10 % (12-44); MEAN CORPUSCULAR HEMOGLOBIN 34 PG (25-34); MEAN CORPUSCULAR HGB CONC 34 G/DL (32-36); MEAN CORPUSCULAR VOLUME 99 FL (80-99); MEAN PLATELET VOLUME 12.2 FL (7.4-10.4); MONOCYTES # (AUTO) 2.1 X 10^3 (0.0-1.0); MONOCYTES % (AUTO) 9 % (0-12); NEUTROPHILS # (AUTO) 17.2 X 10^3 (1.8-7.8); NEUTROPHILS % (AUTO) 79 % (42-75); PLATELET COUNT 104 10^3/uL (130-400); RED BLOOD COUNT 2.96 10^6/uL (4.35-5.85); RED CELL DISTRIBUTION WIDTH 18.5 % (10.0-14.5); WHITE BLOOD COUNT 21.9 10^3/uL (4.3-11.0)
[2016-12-20 07:56] LABS: ANION GAP 8 MMOL/L (5-14); BLOOD UREA NITROGEN 18 MG/DL (7-18); BUN/CREATININE RATIO 21; CALCIUM 7.3 MG/DL (8.5-10.1); CARBON DIOXIDE 18 MMOL/L (21-32); CHLORIDE 114 MMOL/L (98-107); CREATININE SERUM 0.86 MG/DL (0.60-1.30); GFR ESTIMATED > 60; GLUCOSE 130 MG/DL (70-105); POTASSIUM 3.2 MMOL/L (3.6-5.0); SODIUM 140 MMOL/L (135-145)
[2016-12-20 08:00] VITALS: BP 180/81
[2016-12-20] MEDS: meTOproloL SUCCINATE 50 MG (TOPROL XL) TAB PO SCH (08:42)
[2016-12-20] MEDS: PANTOPRAZOLE 40 MG/10 ML (PROTONIX) VIAL IV SCH ×2 (08:45→20:08)
[2016-12-20] MEDS: LACTULOSE SYRUP 10GM/15ML (ENULOSE) 30ML UDC PO SCH ×4 (08:45→20:08)
[2016-12-20] MEDS ORDERED: amLODIPine 5 MG (NORVASC) TAB PO NR (09:00)
[2016-12-20] MEDS ORDERED: meTOproloL SUCCINATE 50 MG (TOPROL XL) TAB PO SCH (09:00)
[2016-12-20] MEDS ORDERED: KCL 20 MEQ TAB (K-DUR) PO NR (09:30)
--- NOTE | 2016-12-20 10:48 | Progress Note-Cardiology ---
Cardiology SOAP Progress Note Subjective: Sitting up in a chair at the bedside. Per pt and nurse he has had dark brown emesis and dark tarry stools this morning. Objective: I&O/Vital Signs Vital Sign - Last 12Hours 12/20/16 12/20/16 12/20/16 12/20/16 00:47 01:00 04:00 07:00 Temp 98.2 99.1 Pulse 74 69 74 73 Resp 19 22 B/P 124/72 152/81 Pulse Ox 96 97 O2 Delivery Room Air Room Air 12/20/16 08:00 Temp 98.5 Pulse 84 Resp 22 B/P 180/81 Pulse Ox 93 O2 Delivery Room Air Intake and Output 12/20/16 00:00 Intake Total 300 ml Balance 300 ml Weight (Pounds): 304 Weight (Ounces): 9.0 Weight (Calculated Kilograms): 138.056086 Constitutional: AAO x 3 Respiratory: No accessory muscle use, No respiratory distress, other (Fair to good air entry bilat, but diminished at the bases) Cardiovascular: regular rate-rhythm S1 and S2 systolic murmur (faint NAY at cardiac base) Gastrointestional: No tender, softNo guarding, audible bowel sounds Extremities: swelling (mild leg edema)No clubbing, No cyanosis Neurologic/Psychiatric: grossly intact Skin: No rash on exposed areas, No ulcerations on exposed areas Results/Procedures: Labs Laboratory Tests 12/19/16 16:38: Potassium Level 3.2L 12/20/16 06:05: Potassium Level 3.2L, Anion Gap 8, BUN/Creatinine Ratio 21, Basophils # (Auto) 0.0, Basophils (%) (Auto) 0, Blood Urea Nitrogen 18, Calcium Level 7.3L, Carbon Dioxide Level 18L, Chloride Level 114H, Creatinine 0.86, Eosinophils # (Auto) 0.4H, Eosinophils (%) (Auto) 2, Estimat Glomerular Filtration Rate > 60, Glucose Level 130H, Hematocrit 29L, Hemoglobin 10.0L, Lymphocytes # (Auto) 2.2, Lymphocytes (%) (Auto) 10L, Mean Corpuscular Hemoglobin 34, Mean Corpuscular Hemoglobin Concent 34, Mean Corpuscular Volume 99, Mean Platelet Volume 12.2H, Monocytes # (Auto) 2.1H, Monocytes (%) (Auto) 9, Neutrophils # (Auto) 17.2H, Neutrophils (%) (Auto) 79H, Platelet Count 104L, Red Blood Count 2.96L, Red Cell Distribution Width 18.5H, Sodium Level 140, White Blood Count 21.9H 12/20/16 09:32: Ammonia 89H Microbiology 12/15/16 MRSA Screen - Final, Complete MRSA not isolated A/P: Assessment: * Impaired mental status or unwillingness to answer questions or poor recall of history - improved * GI bleed - duodenal ulcers seen on EGD of 12-16-16 * H/O multiple GI bleeds including at least 2 admissions to [facility] with GI bleed * Vague mention in [facility] records of [place] cardiac arrest in April 2015 without any clear documentation * Reports h/o [place] for which cardiac cath was advised by Dr. Castillo at [facility] and he refused * Paroxysmal atrial fibrillation/flutter documented on an ECG of 12/16/16 at 9: 37 am. Currently NSR (H/O previous documented a-fib with RVR during hospitalization at [facility] in April 2015) * Spontaneous coagulopathy (elevated PT/INR) * H/O cirrhosis of the liver * ? h/o CVA in April 2015 * Echo of 12/16/16: LVEF 75-80% (hyperdynamic) without wall motion abnormality, mild to mod conc LVH, PASP 40 mmHg * Thrombocytopenia and anemia - management per medical services * Non-compliance with medications * H/O dysphagia * H/O ETOH abuse * HTN * Elevated ammonia levels - management per medical services Plan: * Complex management due to multiple co-morbidities as listed above and poor historian * HR improved * HTN - not well controlled - Norvasc added per medical services - will increase the dose * S/P EGD which showed duodenal ulcers - management per medical/surgical services * Not suitable for full oral or parenteral anticoag due to GI bleed (with previous h/o of GI bleed as well), spontaneous coagulopathy and thrombocytopenia * Vague mention in [facility] records of [place] cardiac arrest with no clear documentation in [facility] records we have available - will try to obtain D/C Summary of May 2015 * Replace potassium * Dark brown emesis and tarry stools this morning - Dr. Guy to see him Physician Assessment Physician Assessment Lungs: fair to good air entry Cor: reg A&R * As documented in our note above * I discussed his case with RAJESH Rae BANQUET COORDINATOR Dec 20, 2016 10:48 ZOEY [facility]STOR [facility] Dec 20, 2016 11:46
--- NOTE | 2016-12-20 11:19 | Physical Therapy Daily Note ---
PT Daily Note-Current Subjective Agrees to PT. Reports he has been nauseated some this morning. Mental Status Patient Orientation: Person, Place, Time, Situation Attachments: IV Transfers Functional [place] Measure 0=Not Assessed/NA 4=Minimal Assistance 1=Total Assistance 5=Supervision or Setup 2=Maximal Assistance 6=Modified [place] 3=Moderate Assistance 7=Complete IndependenceIRFPAI Quality Coding Scale 6 Independent with activity with or without an assistive device 5 Patient requires set up or clean up by helper. Patient completes activity by themselves 4 Supervision or touching assist (CGA). [place] provide cues , steadying assist 3 The helper provides less than half the effort to complete the activity 2 The helper provides more than half the effort to complete the activity 1 Dependent. The helper does all the effort to complete an activity 7 Patient refused to complete or attempt activity 9 The patient did not perform the activity before the current illness or injury 88 Not attempted due to Medical conditions or safety concerns Treatments Sit to stand with CGA with patient using rocking technique and momentum. Pt was incont of bowel while standing so he stood while he was cleaned by this therapist and a new depend was applied. As soon as this was done, he was incont agian. Pt remained standing for same procedure. Pt stood for approx 12 minutes for all of this to take place. He was using a FWW for balance and was able to weight shift and widen stance for optimal casandra area cleansing. Pt then sat down and perfromed AP, heel raises, LAQ, hip flexion x 15 each in chair. Pt up in chair with needs met post treatment. Assessment Current Status: Good Progress Tolerated standing balance well and with good activity tolerance. Pt very pleasant and cooperative throughout treatment. PT Short Term Goals Short Term Goals Transfers (B,C,W/C) (FIM): 5 PT Group Home Goals School Physical Therapist Goals PT Group Home Goals Time Frame: Dec 25, 2016 Transfers (B,C,W/C) (FIM): 5 Gait (FIM): 2 Gait distance (FIM): 3=429-35 ft Gait Assistive Device: FWW PT Plan Problem List Problem List: Activity Tolerance, Functional Strength, Safety, Balance, Gait, Transfer, Bed Mobility Treatment/Plan Treatment Plan: Continue Plan of Care Treatment Plan: Bed Mobility, Education, Functional Activity Katey, Functional Strength, Gait, Safety, Therapeutic Exercise, Transfers Treatment Duration: Dec 25, 2016 Visits Per Week: 5-6 Safety Risks/Education Patient Education: Transfer Techniques Teaching Recipient: Patient Teaching Methods: Demonstration, Discussion Response to Teaching: Return Demonstration, Reinforcement Needed Time/GCodes Time In: 1030 Time Out: 1055 Total Billed Treatment Time: 25 Total Billed Treatment visit FA 15 EX 10 MARIAM RAJAN PT Dec 20, 2016 11:19
--- NOTE | 2016-12-20 11:38 | Progress Note-Hospitalist ---
Progress Note HPI/CC on Admission this is 66-year-old white male who is a poor historian. He was accepted in transfer from [facility] last night at the request of Dr. Coles because of GI bleeding and recent suspected cardiac history. The patient said he had recently had a heart attack and then went to [facility] to recover. He was discharged last Saturday and went home. He is uncertain of his medications but said he was taking some. He denies having had any stroke or problems with his liver that he knows of in the past. He had become ill yesterday and then began vomiting and could not control it. Vomitus was coffee ground and overnight his hemoglobin has dropped. At the time of my interview he is coughing some, thirsty, but otherwise in no distress. 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 Pt had multiple black stools. Dr. Guy will see pt today. Patient Interview: Pt states that he does not have much pain. Dr. Demarco informs pt that his body is clearing out substances, which is the cause of the discolored stools and vomiting. Physical exam was stable. No fever, vital signs stable, pleasant, more alert and oriented improved Regular rate and rhythm, clear to auscultation bilaterally nontender abdomen No edema Assessment: 1. upper GI bleed-Dr. Guy performed EGD and found to be secondary to duodenal ulcers s/p 2 units of packed cells and 2 units of FFP 2. Cirrhotic liver disease uncertain etiology-now with grade 3 hepatic encephalopathy 3. thrombocytopenia is likely secondary to number 2 4. Elevated bilirubin most likely secondary to number 2 5. Questionable history of heart disease or a heart attack-we'll consult Dr. Lang for further evaluation 6. leukocytosis-on vancomycin and Zosyn 7. Long PT/INR most likely secondary to number 2 8. Hypomagnesemia 9. atrial fibrillation with poor rate control-treatment per Dr. Parisypedvinnatremia 10. hypernatremia 11. status post large amount of emesis likely due to transient bowel obstruction with digested upper GI blood Plan: UA Replace K+ Norvasc Consult General Surgery Will plan for discharge to per [facility] tomorrow on skilled Scribed by Cristiano Lord under the direct supervision of Dr. Demarco. SANJANA DEMARCO DO Dec 20, 2016 11:38 Ua Replace K+ Norvasc Consult General Surgery Scribed by Cristiano Lord under the direct supervision of Dr. Demarco. SANJANA DEMARCO DO Dec 20, 2016 11:38
--- NOTE | 2016-12-20 11:50 | Occupational Ther Daily Note ---
OT Current Status-Daily Note Subjective Pt seen in room, up in recliner, agreeable to OT. Pt has been vomiting and had diarrhea this am. No pain mentioned Appearance Alert, cooperative Mental Status/Objective Functional [place] Measure 0=Not Assessed/NA 4=Minimal Assistance 1=Total Assistance 5=Supervision or Setup 2=Maximal Assistance 6=Modified [place] 3=Moderate Assistance 7=Complete [place] ADL-Treatment Pt education on use of sock aid and dressing stick. He reported that he has both of these at home. Other Treatment Pt education in several different UE exercises to help with transfers and mobilizing edema (slight edema in hands). Pt did 10 reps bilat UE ex with no additional resistance other than weight of arms, working on shoulders, elbows and hands, with occasional skilled cues to do exercises correctly. He was able to track repetitions himself. Pt left up in recliner, all needs met. Nursing reported he might have surgery today so he is now NPO. Education OT Patient Education: Exercise program, Purpose of tx/functional activities Teaching Recipient: Patient Teaching Methods: Demonstration, Discussion Response to Teaching: Verbalize Understanding, Return Demonstration OT Short Term Goals Short Term Goals Time Frame: Jan 02, 2017 Eating(FIM): 5 Grooming(FIM): 5 Bathing(FIM): 3 Upper Body Dressing(FIM): 4 Lower Body Dressing(FIM): 4 Toileting(FIM): 4 Transfers (B,C,W/C) (FIM): 5 Toilet/Commode Transfer(FIM): 5 Shower Transfer(FIM): 4 Additional Short Term Goals: 1-Demonstrate ADL Tasks, 2-Verbalize Understanding , 3-ImproveStrength/Katey 1=Demonstrate adherence to instructed precautions during ADL tasks. 2=Patient will verbalize/demonstrate understanding of assistive devices/ modifications for ADL. 3=Patient will improve strength/tolerance for activity to enable patient to perform ADL's. OT Forensic Manager Goals [facility] Goals Time Frame: Jan 16, 2017 Eating (FIM): 6 Grooming(FIM): 6 Bathing(FIM): 5 Upper Body Dressing(FIM): 6 Lower Body Dressing(FIM): 6 Toileting(FIM): 6 Transfers (B,C,W/C) (FIM): 6 Toilet/Commode Transfer(FIM): 6 Shower Transfer(FIM): 5 Additional Goals: 1-Demonstrate ADL Tasks, 2-Verbalize Understanding, 3- ImproveStrength/Katey 1=Demonstrate adherence to instructed precautions during ADL tasks. 2=Patient will verbalize/demonstrate understanding of assistive devices/ modifications for ADL. 3=Patient will improve strength/tolerance for activity to enable patient to perform ADL's. OT Education/Plan Discharge Recommendations Plan/Recommendations: Continue POC Treatment Plan/Plan of Care Patient would benefit from OT for education, treatment and training to promote independence in ADL's, mobility, safety and/or upper extremity function for ADL' s. Plan of Care: ADL Retraining, Functional Mobility, UE Funct Exercise/Act Treatment Duration: Jan 16, 2017 Visits Per Week: 5-6 Agreement: Yes Rehab Potential: Good Time/GCodes Start Time: 11:15 Stop Time: 11:30 Total Time Billed (hr/min): 15 Billed Treatment Time visit, 10 minutes exercise, 5 minutes ADL SHANTEL VERMA OT Dec 20, 2016 11:49
[2016-12-20 12:00] VITALS: BP 129/60
--- NOTE | 2016-12-20 13:12 | Progress Note ---
Subjective Subjective/Events-last exam Pt seen and examined, appears completely comfortable now. Apparently he was a little nauseous, possibly distended and then had 1100ml of emesis this am. Per nurse it was mostly greenish, with a "ball" of old blood. He denies any pain or nausea when seen at appx 11:30. Review of Systems General: No Chills, No Night Sweats Pulmonary: No Cough Cardiovascular: No: Chest Pain Gastrointestinal: : Abdominal Pain: Nausea: Vomiting Objective Exam Vital Signs Date Time Temp Pulse Resp B/P Pulse Ox O2 Delivery O2 Flow Rate FiO2 12/20/16 12:00 97.8 76 20 129/60 96 Room Air 12/20/16 08:00 98.5 84 22 180/81 93 Room Air 12/20/16 07:00 73 12/20/16 04:00 99.1 74 22 152/81 97 Room Air 12/20/16 01:00 69 12/20/16 00:47 98.2 74 19 124/72 96 Room Air 12/19/16 19:00 69 12/19/16 15:38 98.4 68 18 128/78 97 Room Air 12/19/16 14:00 63 12/19/16 13:00 65 I & O 12/20/16 07:00 Intake Total 1900 ml Output Total 550 ml Balance 1350 ml Capillary Refill : General Appearance: No Apparent Distress Obese HEENT: PERRL/EOMI Pharynx Normal Other (nystagmus oral mucosa dry) Neck: Supple Respiratory: Lungs Clear Normal Breath Sounds No Accessory Muscle Use No Respiratory Distress Cardiovascular: Irregularly Irregular Tachycardia Gastrointestinal: normal bowel sounds soft no organomegaly no pulsatile mass tenderness (reports tenderness with deep palpation, but does not have voluntary guarding) Extremity: Pedal Edema Neurologic/Psychiatric: Alert Other (appears to have sequelae of old stroke with facial droop) Skin: Pallor Lymphatic: No Adenopathy Results Lab Laboratory Tests 12/19/16 16:38: Potassium Level 3.2L 12/20/16 06:05: Potassium Level 3.2L, Anion Gap 8, BUN/Creatinine Ratio 21, Basophils # (Auto) 0.0, Basophils (%) (Auto) 0, Blood Urea Nitrogen 18, Calcium Level 7.3L, Carbon Dioxide Level 18L, Chloride Level 114H, Creatinine 0.86, Eosinophils # (Auto) 0.4H, Eosinophils (%) (Auto) 2, Estimat Glomerular Filtration Rate > 60, Glucose Level 130H, Hematocrit 29L, Hemoglobin 10.0L, Lymphocytes # (Auto) 2.2, Lymphocytes (%) (Auto) 10L, Mean Corpuscular Hemoglobin 34, Mean Corpuscular Hemoglobin Concent 34, Mean Corpuscular Volume 99, Mean Platelet Volume 12.2H, Monocytes # (Auto) 2.1H, Monocytes (%) (Auto) 9, Neutrophils # (Auto) 17.2H, Neutrophils (%) (Auto) 79H, Platelet Count 104L, Red Blood Count 2.96L, Red Cell Distribution Width 18.5H, Sodium Level 140, White Blood Count 21.9H 12/20/16 09:32: Ammonia 89H Microbiology 12/15/16 MRSA Screen - Final, Complete MRSA not isolated Assessment/Plan Assessment/Plan Assessment/Plan Anemia secondary to GI bleed - Hg actually 10 today (better than yesterday) - EGD showed one large healed ulcer, and one small one that looked like it had been bleeding recently (injected with epinephrine) - he is now having black tarry stools Coagulopathy - most likely secondary to cirrhosis. CAD - Cardiology consulted Hypomagnesemia - recheck labs and replace Hypernatremia & Hyperchloremia switch IVF, monitor and replace Hyperbilirubinemia ? secondary to liver disease or GI Bleed VTE prophylaxis contraindicated because of coagulopathy and bleeding duodenal ulcers I had a discussion with the pt regarding status and end of life decisions. I asked him if he would want surgery to "fix" the ulcers that I found on EGD. This would be a Gastric resection, which is a large surgery. He stated he would rather avoid surgery. I told him that it is possible for one of the ulcers to rupture and he could bleed to ; however, he is a poor surgical candidate and could during surgery. He understands he could if the ulcers ruptured, but he does not want surgery at this time. Pt still refusing surgery, Hg stable. In speaking with Database Management Specialist his hx of Cardiac Arrest may not be true (no records can be found) and he has an ok EF (per Cardiology); however he is still a very poor surgical candidate. I still think it is best to hold off on surgery, especially since he is refusing. Clinical Quality Measures DVT/VTE Risk/Contraindication: Risk Factor Score Per Nursin RFS Level Per Nursing on Admit: 4+=Very High Contraindications-Pharm: Other *list below* Other: upper GI bleed GLENDA UPTON DO Dec 20, 2016 13:12
[2016-12-20 15:30] VITALS: BP 143/69
[2016-12-20 19:15] VITALS: BP 128/62
[2016-12-21] VITALS: BP 162/85
[2016-12-21 04:30] VITALS: BP 161/69
[2016-12-21] MEDS ORDERED: PROMETHAZINE 12.5 MG (PHENERGAN) SUPP PR ONE (04:30)
[2016-12-21] MEDS: SUCRALFATE 1 GM (CARAFATE) TAB NG SCH ×4 (05:11→20:35)
[2016-12-21 06:40] LABS: BASOPHILS % (AUTO) 0 % (0-10); EOSINOPHILS # (AUTO) 0.6 10^3/uL (0.0-0.3); EOSINOPHILS % (AUTO) 5 % (0-10); LYMPHOCYTES # (AUTO) 1.3 X 10^3 (1.0-4.0); LYMPHOCYTES % (AUTO) 12 % (12-44); MEAN CORPUSCULAR HEMOGLOBIN 34 PG (25-34); MEAN CORPUSCULAR HGB CONC 34 G/DL (32-36); MEAN CORPUSCULAR VOLUME 100 FL (80-99); MEAN PLATELET VOLUME 11.5 FL (7.4-10.4); MONOCYTES # (AUTO) 1.7 X 10^3 (0.0-1.0); MONOCYTES % (AUTO) 15 % (0-12); NEUTROPHILS # (AUTO) 7.8 X 10^3 (1.8-7.8); NEUTROPHILS % (AUTO) 68 % (42-75); PLATELET COUNT 98 10^3/uL (130-400); RED BLOOD COUNT 2.69 10^6/uL (4.35-5.85); RED CELL DISTRIBUTION WIDTH 18.4 % (10.0-14.5); WHITE BLOOD COUNT 11.5 10^3/uL (4.3-11.0)
[2016-12-21 06:44] LABS: KETONES,URINE 1+ (NEGATIVE); LEUKOCYTE ESTERASE ,URINE 1+ (NEGATIVE); NITRITE,URINE NEGATIVE (NEGATIVE); PH,URINE 6 (5-9); PROTEIN,URINE 2+ (NEGATIVE); UROBILINOGEN,URINE 4 MG/DL (NORMAL)
[2016-12-21 06:54] LABS: BILIRUBIN,URINE 1+ (NEGATIVE)
[2016-12-21 06:57] LABS: ANION GAP 8 MMOL/L (5-14); BLOOD UREA NITROGEN 23 MG/DL (7-18); BUN/CREATININE RATIO 22; CALCIUM 7.3 MG/DL (8.5-10.1); CARBON DIOXIDE 19 MMOL/L (21-32); CHLORIDE 111 MMOL/L (98-107); CREATININE SERUM 1.04 MG/DL (0.60-1.30); GFR ESTIMATED > 60; GLUCOSE 109 MG/DL (70-105); POTASSIUM 3.3 MMOL/L (3.6-5.0); SODIUM 138 MMOL/L (135-145)
[2016-12-21 08:00] VITALS: BP 124/58
--- NOTE | 2016-12-21 09:11 | Occupational Ther Daily Note ---
OT Current Status-Daily Note Subjective Pt in bed, agrees to bed level activity. Pt denies pain, but states he had a rough night secondary to vomiting. Mental Status/Objective Functional [place] Measure 0=Not Assessed/NA 4=Minimal Assistance 1=Total Assistance 5=Supervision or Setup 2=Maximal Assistance 6=Modified [place] 3=Moderate Assistance 7=Complete [place] Other Treatment Pt just finishing cleaning up and changing gown with nurse aide. Pt declined OOB activity, but agrees to UE activity in supine. Pt performed AROM x15 reps at shoulders, elbows, wrists, and fingers to increase strength and activity tolerance needed for functional tasks. Rest breaks between exercises. Pt declined further activity secondary to fatigue. In bed with needs met after session. OT Short Term Goals Short Term Goals Time Frame: Jan 02, 2017 Eating(FIM): 5 Grooming(FIM): 5 Bathing(FIM): 3 Upper Body Dressing(FIM): 4 Lower Body Dressing(FIM): 4 Toileting(FIM): 4 Transfers (B,C,W/C) (FIM): 5 Toilet/Commode Transfer(FIM): 5 Shower Transfer(FIM): 4 Additional Short Term Goals: 1-Demonstrate ADL Tasks, 2-Verbalize Understanding , 3-ImproveStrength/Katey 1=Demonstrate adherence to instructed precautions during ADL tasks. 2=Patient will verbalize/demonstrate understanding of assistive devices/ modifications for ADL. 3=Patient will improve strength/tolerance for activity to enable patient to perform ADL's. OT Cigarette Lighter Repairer Goals [facility] Goals Time Frame: Jan 16, 2017 Eating (FIM): 6 Grooming(FIM): 6 Bathing(FIM): 5 Upper Body Dressing(FIM): 6 Lower Body Dressing(FIM): 6 Toileting(FIM): 6 Transfers (B,C,W/C) (FIM): 6 Toilet/Commode Transfer(FIM): 6 Shower Transfer(FIM): 5 Additional Goals: 1-Demonstrate ADL Tasks, 2-Verbalize Understanding, 3- ImproveStrength/Katey 1=Demonstrate adherence to instructed precautions during ADL tasks. 2=Patient will verbalize/demonstrate understanding of assistive devices/ modifications for ADL. 3=Patient will improve strength/tolerance for activity to enable patient to perform ADL's. OT Education/Plan Discharge Recommendations Plan/Recommendations: Continue POC Treatment Plan/Plan of Care Patient would benefit from OT for education, treatment and training to promote independence in ADL's, mobility, safety and/or upper extremity function for ADL' s. Plan of Care: ADL Retraining, Functional Mobility, UE Funct Exercise/Act Treatment Duration: Jan 16, 2017 Visits Per Week: 5-6 Agreement: Yes Rehab Potential: Good Time/GCodes Start Time: 08:40 Stop Time: 08:53 Total Time Billed (hr/min): 13 Billed Treatment Time 1 visit, EX(13minutes) ADRY CHAMORRO OT Dec 21, 2016 09:11
[2016-12-21] MEDS: LACTULOSE SYRUP 10GM/15ML (ENULOSE) 30ML UDC PO SCH ×4 (09:20→20:35)
[2016-12-21] MEDS: PANTOPRAZOLE 40 MG/10 ML (PROTONIX) VIAL IV SCH ×2 (09:20→20:33)
[2016-12-21] MEDS: meTOproloL SUCCINATE 50 MG (TOPROL XL) TAB PO SCH ×2 (09:20→11:09)
[2016-12-21] MEDS: ONDANSETRON 4 MG/2 ML (SDV) Z0FRAN IVP PRN (09:20)
--- NOTE | 2016-12-21 10:34 | Physical Therapy Daily Note ---
PT Daily Note-Current Subjective Patient is in bed and agrees to PT. Pain Numeric Pain Scale: 0-No Pain Location: No Pain Reported Mental Status Patient Orientation: Confused Transfers Functional [place] Measure 0=Not Assessed/NA 4=Minimal Assistance 1=Total Assistance 5=Supervision or Setup 2=Maximal Assistance 6=Modified [place] 3=Moderate Assistance 7=Complete IndependenceIRFPAI Quality Coding Scale 6 Independent with activity with or without an assistive device 5 Patient requires set up or clean up by helper. Patient completes activity by themselves 4 Supervision or touching assist (CGA). [place] provide cues , steadying assist 3 The helper provides less than half the effort to complete the activity 2 The helper provides more than half the effort to complete the activity 1 Dependent. The helper does all the effort to complete an activity 7 Patient refused to complete or attempt activity 9 The patient did not perform the activity before the current illness or injury 88 Not attempted due to Medical conditions or safety concerns Transfers (B, C, W/C) (FIM): 4 Scootin Rollin Supine to/from Sit: 5 Sit to/from Stand: 4 Bed to/from Chair: 4 CGA for safety Gait Training Gait (FIM): 1 Distance (FIM): 1=up to 49 ft Distance: 5' Gait Level of Assist: 4 Gait Persons Needed: 1 Gait Assistive Device: FWW shuffle gait sequence Treatments Patient incontinent BM during treatment. PT and patient, together, performed ADL's to cleanse and change clothing. Patient is very slow to respond and requires time to complete all functional tasks. Assessment Patient tolerated treatment and remained on commode to continue with BM. RN notified. Call light in hand. PT Short Term Goals Short Term Goals Transfers (B,C,W/C) (FIM): 5 PT Jail Goals Jail Goals PT Landscape Designer Goals Time Frame: Dec 25, 2016 Transfers (B,C,W/C) (FIM): 5 Gait (FIM): 2 Gait distance (FIM): 2=646-93 ft Gait Assistive Device: FWW PT Plan Treatment/Plan Treatment Plan: Continue Plan of Care Treatment Plan: Bed Mobility, Education, Functional Activity Katey, Functional Strength, Gait, Safety, Therapeutic Exercise, Transfers Treatment Duration: Dec 25, 2016 Visits Per Week: 5-6 Time/GCodes Time In: 940 Time Out: 1003 Total Billed Treatment Time: 23 Total Billed Treatment 1 visit FA x 2 23 min BARBARA COBB PT Dec 21, 2016 10:34
[2016-12-21 11:46] VITALS: BP 141/62
[2016-12-21] MEDS: SCOPOLAMINE 1.5 MG (TRANSDERM-SCOP) PATCH TOP SCH (12:28)
--- NOTE | 2016-12-21 13:42 | Progress Note-Cardiology ---
Cardiology SOAP Progress Note Subjective: Notes gen malaise Denies cp or palp or syncope Has continue to intermittently have tarry stools Objective: I&O/Vital Signs Vital Sign - Last 12Hours 12/21/16 12/21/16 12/21/16 12/21/16 04:30 06:41 08:00 11:46 Temp 99.6 99.3 98.9 Pulse 77 76 86 76 Resp 22 20 20 B/P 161/69 124/58 141/62 Pulse Ox 96 96 95 O2 Delivery Room Air Room Air Room Air Intake and Output 12/21/16 00:00 Intake Total 720 ml Balance 720 ml Weight (Pounds): 296 Weight (Ounces): 9.0 Weight (Calculated Kilograms): 134.469598 Constitutional: AAO x 3 Respiratory: No accessory muscle use, No respiratory distress, other (Fair to good air entry bilat, but diminished at the bases) Cardiovascular: regular rate-rhythm S1 and S2 systolic murmur (faint NAY at cardiac base) Gastrointestional: No tender, softNo guarding, audible bowel sounds Extremities: swelling (mild leg edema)No clubbing, No cyanosis Neurologic/Psychiatric: grossly intact Skin: No rash on exposed areas, No ulcerations on exposed areas Results/Procedures: Labs Laboratory Tests 12/21/16 00:05: Urine Bacteria FEWH, Urine Bilirubin 1+H, Urine Casts NONE, Urine Clarity CLEAR , Urine Color AMBERH, Urine Crystals NONE, Urine Culture Indicated YES, Urine Glucose (UA) NEGATIVE, Urine Ketones 1+H, Urine Leukocyte Esterase 1+H, Urine Mucus SMALLH, Urine Nitrite NEGATIVE, Urine Protein 2+H, Urine RBC 50-100H, Urine RBC (Auto) 5+H, Urine Specific [place] 1.020, Urine Squamous Epithelial Cells 2-5, Urine Urobilinogen 4H, Urine WBC 5-10H, Urine pH 6 12/21/16 05:29: Anion Gap 8, BUN/Creatinine Ratio 22, Basophils # (Auto) 0.0, Basophils (%) ( Auto) 0, Blood Urea Nitrogen 23H, Calcium Level 7.3L, Carbon Dioxide Level 19L, Chloride Level 111H, Creatinine 1.04, Eosinophils # (Auto) 0.6H, Eosinophils (% ) (Auto) 5, Estimat Glomerular Filtration Rate > 60, Glucose Level 109H, Hematocrit 27L, Hemoglobin 9.1L, Lymphocytes # (Auto) 1.3, Lymphocytes (%) (Auto ) 12, Mean Corpuscular Hemoglobin 34, Mean Corpuscular Hemoglobin Concent 34, Mean Corpuscular Volume 100H, Mean Platelet Volume 11.5H, Monocytes # (Auto) 1.7H, Monocytes (%) (Auto) 15H, Neutrophils # (Auto) 7.8, Neutrophils (%) (Auto ) 68, Platelet Count 98L, Potassium Level 3.3L, Red Blood Count 2.69L, Red Cell Distribution Width 18.4H, Sodium Level 138, White Blood Count 11.5H Microbiology 12/15/16 MRSA Screen - Final, Complete MRSA not isolated Laboratory Tests 12/19/16 16:38 12/20/16 06:05 12/21/16 05:29 A/P: Assessment: * Impaired mental status or unwillingness to answer questions or poor recall of history - improved * GI bleed - duodenal ulcers seen on EGD of 12-16-16. Continues to have tarry stojaxos * H/O multiple GI bleeds including at least 2 admissions to [facility] with GI bleed * Vague mention in [facility] records of a h/o [place] cardiac arrest in April 2015 without any clear documentation * Reports h/o [place] for which cardiac cath was advised by Dr. Castillo at [facility] and he refused * Paroxysmal atrial fibrillation/flutter documented on an ECG of 12/16/16 at 9: 37 am. Currently NSR (H/O previous documented a-fib with RVR during hospitalization at [facility] in April 2015) * Spontaneous coagulopathy (elevated PT/INR) * H/O cirrhosis of the liver * ? h/o CVA in April 2015 * Echo of 12/16/16: LVEF 75-80% (hyperdynamic) without wall motion abnormality, mild to mod conc LVH, PASP 40 mmHg * Thrombocytopenia and anemia - management per medical services * Non-compliance with medications * H/O dysphagia * H/O ETOH abuse * HTN * Elevated ammonia levels - management per Medical Services * Hypokalemia Plan: * Complex management due to multiple co-morbidities as listed above and poor historian * S/P EGD which showed duodenal ulcers - management per Medical/Surgical services * Not suitable for full oral or parenteral anticoag due to GI bleed (with previous h/o of GI bleed as well), spontaneous coagulopathy and thrombocytopenia * Vague mention in [facility] records of [place] cardiac arrest with no clear documentation in [facility] records we have available - we have been trying to obtain D/C Summary of May 2015 * Replenish K * Monitor labs * Dr Carter covering our service until the morning of 12/24/16 ZOEY PASTOR MD FACP FAC CCDS Dec 21, 2016 13:42
[2016-12-21] MEDS ORDERED: KCL 20 MEQ TAB (K-DUR) PO NR (13:45)
[2016-12-21 16:17] VITALS: BP 121/66
[2016-12-21 19:45] VITALS: BP_SYST 122; BP_SYST 142; BP_DIAS 58; BP_DIAS 62
[2016-12-21] MEDS: CATHETER FLUSH 10 ML SYR IV PRN (20:33)
[2016-12-22] VITALS: BP 116/55
[2016-12-22 05:24] LABS: BASOPHILS % (AUTO) 1 % (0-10); EOSINOPHILS # (AUTO) 0.6 10^3/uL (0.0-0.3); EOSINOPHILS % (AUTO) 7 % (0-10); LYMPHOCYTES # (AUTO) 1.7 X 10^3 (1.0-4.0); LYMPHOCYTES % (AUTO) 22 % (12-44); MEAN CORPUSCULAR HEMOGLOBIN 33 PG (25-34); MEAN CORPUSCULAR HGB CONC 33 G/DL (32-36); MEAN CORPUSCULAR VOLUME 99 FL (80-99); MONOCYTES # (AUTO) 1.4 X 10^3 (0.0-1.0); MONOCYTES % (AUTO) 17 % (0-12); NEUTROPHILS # (AUTO) 4.4 X 10^3 (1.8-7.8); NEUTROPHILS % (AUTO) 54 % (42-75); PLATELET COUNT 87 10^3/uL (130-400); RED BLOOD COUNT 2.48 10^6/uL (4.35-5.85); RED CELL DISTRIBUTION WIDTH 17.8 % (10.0-14.5)
[2016-12-22 05:40] LABS: ANION GAP 9 MMOL/L (5-14); BLOOD UREA NITROGEN 22 MG/DL (7-18); BUN/CREATININE RATIO 27; CALCIUM 6.9 MG/DL (8.5-10.1); CARBON DIOXIDE 18 MMOL/L (21-32); CHLORIDE 112 MMOL/L (98-107); CREATININE SERUM 0.83 MG/DL (0.60-1.30); GFR ESTIMATED > 60; GLUCOSE 77 MG/DL (70-105); SODIUM 139 MMOL/L (135-145)
[2016-12-22] MEDS: SUCRALFATE 1 GM (CARAFATE) TAB NG SCH ×4 (06:00→20:08)
[2016-12-22 08:11] VITALS: BP 141/63
--- NOTE | 2016-12-22 09:52 | Physical Therapy Progress Note ---
Therapy Progress Note Pt declined to participate with PT this date. "I've had a tiring morning". Pt agreeable to up to chair with nursing later this date. PT will resume on Saturday. ZENAIDA CRAWLEY DPT Dec 22, 2016 09:52
[2016-12-22] MEDS: PANTOPRAZOLE 40 MG/10 ML (PROTONIX) VIAL IV SCH ×2 (09:53→20:07)
[2016-12-22] MEDS: LACTULOSE SYRUP 10GM/15ML (ENULOSE) 30ML UDC PO SCH ×4 (11:00→20:08)
[2016-12-22] MEDS: meTOproloL SUCCINATE 50 MG (TOPROL XL) TAB PO SCH (11:02)
--- NOTE | 2016-12-22 11:14 | Progress Note-Hospitalist ---
Progress Note HPI/CC on Admission this is 66-year-old white male who is a poor historian. He was accepted in transfer from [facility] last night at the request of Dr. Coles because of GI bleeding and recent suspected cardiac history. The patient said he had recently had a heart attack and then went to [facility] to recover. He was discharged last Saturday and went home. He is uncertain of his medications but said he was taking some. He denies having had any stroke or problems with his liver that he knows of in the past. He had become ill yesterday and then began vomiting and could not control it. Vomitus was coffee ground and overnight his hemoglobin has dropped. At the time of my interview he is coughing some, thirsty, but otherwise in no distress. Notes from 12/21/2016: Chart Review: RN called me last night with vomiting issues, I told her to call Dr. Guy. Pt remains stable but Dr. Guy offered exploratory surgery and pt declined. WBC now is much improved from 21.9 to 11.5. Platelets 98k. K 3.3. Hgb 9.1. Ammonia 89 yesterday so maintained lactulose. Patient Interview: Pt states that he feels ok. Pt states that he has not vomited this morning. Dr. Demarco discusses improved bloodwork with pt. Pt denies having pain. Pt has not been eating much, but has been drinking Sprite. Physical exam stable. Pt's last BM was last night. Dr. Demarco discusses palliative care options with pt, and discusses pts liver complications. pleasant, flat affect, overall declined Regular rate and rhythm, diminished breath sounds all dowd Ascites noted Plan: Palliative care Anti-nausea DC to [place] Scribed by Cristiano Lord under the direct supervision of Dr. Demarco. Hospital course: Patient had a standard hospital course following an ulcer bleed and required 2 units of packed red blood cells and FFP. The end-stage of his cirrhosis was very clear that complicated the situation even further. Overall prognosis was extremely poor patient didn't seem to grasp that fact and Dr. Guy General Surgeon had try to alleviate the recurrent nausea he had but he refused all medications given in addition to any surgery that would've been offered for exploratory purposes but overall he has such a poor prognosis that surgery is not an option for this patient. I tried to breastfeeding peer counselor him regarding the end-stage status of his illness he does not appear to understand nor want to understand these details so I have asked palliative care nurse to try to breastfeeding peer counselor him and the most reasonable option considering the futility of continuing aggressive treatment and refusing those medical options would be to enroll in hospice and provide support during the end stages of his life. Progress Notes/Assess & Plan Date Seen 12/22/16 Diagonsis/Assessment & Plan Refusing to take any medication whatsoever especially lactulose that helps decrease ammonia level Patient refusing to get out of bed and remains in bed Very difficult social issue considering he refuses to take all meds and we are trying for disposition on hospice No fever, vital signs stable, pleasant, flat affect Regular rate and rhythm, clear to auscultation bilaterally nontender abdomen No edema Assessment: 1. upper GI bleed-Dr. Guy performed EGD and found to be secondary to duodenal ulcers s/p 2 units of packed cells and 2 units of FFP 2. Cirrhotic liver disease uncertain etiology-now with grade 3 hepatic encephalopathy 3. thrombocytopenia is likely secondary to number 2 4. Elevated bilirubin most likely secondary to number 2 5. Questionable history of heart disease or a heart attack-we'll consult Dr. Lang for further evaluation 6. leukocytosis-on vancomycin and Zosyn 7. Long PT/INR most likely secondary to number 2 8. Hypomagnesemia 9. atrial fibrillation with poor rate control-treatment per Dr. Riddle 10. hypernatremia 11. status post large amount of emesis likely due to transient bowel obstruction with digested upper GI blood 12. noncompliant with medical management and medical treatments is now hospice candidate Plan: Await Saturday for NHP on Hospice Poor prognosis and patient non-compliant with any and all medical treatments SANJANA DEMARCO DO Dec 22, 2016 11:14
[2016-12-22] MEDS: ONDANSETRON 4 MG/2 ML (SDV) Z0FRAN IVP PRN ×2 (14:36→23:10)
[2016-12-22 16:00] VITALS: BP 168/73
[2016-12-22] MEDS: CATHETER FLUSH 10 ML SYR IV PRN (20:07)
[2016-12-23] VITALS: BP 161/68
[2016-12-23 05:43] LABS: BASOPHILS # (AUTO) 0.1 10^3/uL (0.0-0.1); BASOPHILS % (AUTO) 1 % (0-10); EOSINOPHILS # (AUTO) 0.4 10^3/uL (0.0-0.3); EOSINOPHILS % (AUTO) 4 % (0-10); LYMPHOCYTES # (AUTO) 1.6 X 10^3 (1.0-4.0); LYMPHOCYTES % (AUTO) 15 % (12-44); MEAN CORPUSCULAR HEMOGLOBIN 33 PG (25-34); MEAN CORPUSCULAR HGB CONC 34 G/DL (32-36); MEAN CORPUSCULAR VOLUME 99 FL (80-99); MONOCYTES # (AUTO) 1.6 X 10^3 (0.0-1.0); MONOCYTES % (AUTO) 15 % (0-12); NEUTROPHILS # (AUTO) 7.1 X 10^3 (1.8-7.8); NEUTROPHILS % (AUTO) 66 % (42-75); PLATELET COUNT 106 10^3/uL (130-400); RED BLOOD COUNT 2.61 10^6/uL (4.35-5.85); RED CELL DISTRIBUTION WIDTH 17.5 % (10.0-14.5); WHITE BLOOD COUNT 10.8 10^3/uL (4.3-11.0)
[2016-12-23 06:00] LABS: ANION GAP 8 MMOL/L (5-14); BLOOD UREA NITROGEN 20 MG/DL (7-18); BUN/CREATININE RATIO 24; CARBON DIOXIDE 18 MMOL/L (21-32); CHLORIDE 113 MMOL/L (98-107); CREATININE SERUM 0.84 MG/DL (0.60-1.30); GFR ESTIMATED > 60; GLUCOSE 78 MG/DL (70-105); POTASSIUM 3.1 MMOL/L (3.6-5.0); SODIUM 139 MMOL/L (135-145)
[2016-12-23] MEDS: SUCRALFATE 1 GM (CARAFATE) TAB NG SCH ×4 (06:00→20:35)
[2016-12-23] MEDS: LACTULOSE SYRUP 10GM/15ML (ENULOSE) 30ML UDC PO SCH ×4 (07:46→20:35)
[2016-12-23] MEDS: meTOproloL SUCCINATE 50 MG (TOPROL XL) TAB PO SCH (07:46)
[2016-12-23 08:02] VITALS: BP 139/65
[2016-12-23] MEDS: PANTOPRAZOLE 40 MG/10 ML (PROTONIX) VIAL IV SCH ×2 (08:42→20:33)
--- NOTE | 2016-12-23 11:14 | Progress Note-Hospitalist ---
Progress Note HPI/CC on Admission this is 66-year-old white male who is a poor historian. He was accepted in transfer from [facility] last night at the request of Dr. Coles because of GI bleeding and recent suspected cardiac history. The patient said he had recently had a heart attack and then went to [facility] to recover. He was discharged last Saturday and went home. He is uncertain of his medications but said he was taking some. He denies having had any stroke or problems with his liver that he knows of in the past. He had become ill yesterday and then began vomiting and could not control it. Vomitus was coffee ground and overnight his hemoglobin has dropped. At the time of my interview he is coughing some, thirsty, but otherwise in no distress. Notes from 12/21/2016: Chart Review: RN called me last night with vomiting issues, I told her to call Dr. Guy. Pt remains stable but Dr. Guy offered exploratory surgery and pt declined. WBC now is much improved from 21.9 to 11.5. Platelets 98k. K 3.3. Hgb 9.1. Ammonia 89 yesterday so maintained lactulose. Patient Interview: Pt states that he feels ok. Pt states that he has not vomited this morning. Dr. Demarco discusses improved bloodwork with pt. Pt denies having pain. Pt has not been eating much, but has been drinking Sprite. Physical exam stable. Pt's last BM was last night. Dr. Demarco discusses palliative care options with pt, and discusses pts liver complications. pleasant, flat affect, overall declined Regular rate and rhythm, diminished breath sounds all dowd Ascites noted Plan: Palliative care Anti-nausea DC to [place] Scribed by Cristiano Lord under the direct supervision of Dr. Demarco. Hospital course: Patient had a standard hospital course following an ulcer bleed and required 2 units of packed red blood cells and FFP. The end-stage of his cirrhosis was very clear that complicated the situation even further. Overall prognosis was extremely poor patient didn't seem to grasp that fact and Dr. Guy General Surgeon had try to alleviate the recurrent nausea he had but he refused all medications given in addition to any surgery that would've been offered for exploratory purposes but overall he has such a poor prognosis that surgery is not an option for this patient. I tried to safety counselor him regarding the end-stage status of his illness he does not appear to understand nor want to understand these details so I have asked palliative care nurse to try to safety counselor him and the most reasonable option considering the futility of continuing aggressive treatment and refusing those medical options would be to enroll in hospice and provide support during the end stages of his life. Progress Notes/Assess & Plan Date Seen 12/23/16 Diagonsis/Assessment & Plan Refusing to take any medication whatsoever especially lactulose that helps decrease ammonia level Patient refusing to get out of bed and remains in bed Very difficult social issue considering he refuses to take all meds and we are trying for disposition on hospice Hieu RN spoke with his DPOA and explained the situation but he is requesting IV medication to handle all of his needs and that is just not possible considering he is his own person and we cannot force person to do anything even take his medications Needs hospice and disposition tomorrow No fever, vital signs stable, sleeping soundly Regular rate and rhythm, clear to auscultation bilaterally nontender abdomen No edema Assessment: 1. upper GI bleed-Dr. Guy performed EGD and found to be secondary to duodenal ulcers s/p 2 units of packed cells and 2 units of FFP 2. Cirrhotic liver disease uncertain etiology-now with grade 3 hepatic encephalopathy 3. thrombocytopenia is likely secondary to number 2 4. Elevated bilirubin most likely secondary to number 2 5. Questionable history of heart disease or a heart attack-we'll consult Dr. Lang for further evaluation 6. leukocytosis-on vancomycin and Zosyn 7. Long PT/INR most likely secondary to number 2 8. Hypomagnesemia 9. atrial fibrillation with poor rate control-treatment per Dr. Riddle 10. hypernatremia 11. status post large amount of emesis likely due to transient bowel obstruction with digested upper GI blood 12. noncompliant with medical management and medical treatments is now hospice candidate Plan: Await Saturday for NHP on Hospice Poor prognosis and patient non-compliant with any and all medical treatments SANJANA DEMARCO DO Dec 23, 2016 11:14
--- NOTE | 2016-12-23 12:13 | Cardiology Progress Note ---
Cardiology SOAP Progress Note Subjective: no cardiac complaints. positive jaundice Objective: I&O/Vital Signs Vital Sign - Last 12Hours 12/23/16 16:28 Temp 98.2 Pulse 70 Resp 18 B/P 152/67 Pulse Ox 95 O2 Delivery Room Air Intake and Output 12/23/16 00:00 Intake Total 100 ml Output Total 500 ml Balance -400 ml Weight (Pounds): 291 Weight (Ounces): 0.0 Weight (Calculated Kilograms): 131.623977 Constitutional: AAO x 3 other Respiratory: No accessory muscle use, No respiratory distress, other (Fair to good air entry bilat, but diminished at the bases) Cardiovascular: regular rate-rhythm S1 and S2 systolic murmur (faint NAY at cardiac base) Gastrointestional: No tender, softNo guarding, audible bowel sounds Extremities: swelling (mild leg edema)No clubbing, No cyanosis Neurologic/Psychiatric: grossly intact Skin: No rash on exposed areas, No ulcerations on exposed areas Results/Procedures: Labs Laboratory Tests 12/23/16 05:15: Anion Gap 8, BUN/Creatinine Ratio 24, Basophils # (Auto) 0.1, Basophils (%) ( Auto) 1, Blood Urea Nitrogen 20H, Calcium Level 7.0L, Carbon Dioxide Level 18L, Chloride Level 113H, Creatinine 0.84, Eosinophils # (Auto) 0.4H, Eosinophils (% ) (Auto) 4, Estimat Glomerular Filtration Rate > 60, Glucose Level 78, Hematocrit 26L, Hemoglobin 8.7L, Lymphocytes # (Auto) 1.6, Lymphocytes (%) (Auto ) 15, Mean Corpuscular Hemoglobin 33, Mean Corpuscular Hemoglobin Concent 34, Mean Corpuscular Volume 99, Mean Platelet Volume 11.0H, Monocytes # (Auto) 1.6H , Monocytes (%) (Auto) 15H, Neutrophils # (Auto) 7.1, Neutrophils (%) (Auto) 66 , Platelet Count 106L, Potassium Level 3.1L, Red Blood Count 2.61L, Red Cell Distribution Width 17.5H, Sodium Level 139, White Blood Count 10.8 Microbiology 12/15/16 MRSA Screen - Final, Complete MRSA not isolated 12/21/16 Urine Culture - Final, Complete NO GROWTH A/P: Assessment/Dx: see below Plan: * Impaired mental status or unwillingness to answer questions or poor recall of history - improved * GI bleed - duodenal ulcers seen on EGD of 12-16-16. * H/O multiple GI bleeds including at least 2 admissions to [facility] with GI bleed * Vague mention in [facility] records of a h/o [place] cardiac arrest in April 2015 without any clear documentation * Reports h/o MS for which cardiac cath was advised by Dr. Castillo at [facility] and he refused * Paroxysmal atrial fibrillation/flutter documented on an ECG of 12/16/16 at 9: 37 am. Currently NSR (H/O previous documented a-fib with RVR during hospitalization at [facility] in April 2015) * Spontaneous coagulopathy (elevated PT/INR) * H/O cirrhosis of the liver * ? h/o CVA in April 2015 * Echo of 12/16/16: LVEF 75-80% (hyperdynamic) without wall motion abnormality, mild to mod conc LVH, PASP 40 mmHg * Thrombocytopenia and anemia - management per medical services * Non-compliance with medications * H/O dysphagia * H/O ETOH abuse * HTN * Elevated ammonia levels - management per Medical Services * Hypokalemia * * Dr Riddle to take over care in am. Italo BARTON MD Dec 23, 2016 12:13
[2016-12-23 16:28] VITALS: BP 152/67
[2016-12-24] VITALS: BP 179/74
[2016-12-24] MEDS: SUCRALFATE 1 GM (CARAFATE) TAB NG SCH ×4 (06:00→20:11)
[2016-12-24 08:00] VITALS: BP 151/70
[2016-12-24] MEDS: meTOproloL SUCCINATE 50 MG (TOPROL XL) TAB PO SCH (08:46)
[2016-12-24] MEDS: PANTOPRAZOLE 40 MG/10 ML (PROTONIX) VIAL IV SCH ×2 (08:47→21:19)
[2016-12-24] MEDS: CATHETER FLUSH 10 ML SYR IV PRN (08:47)
[2016-12-24] MEDS: LACTULOSE SYRUP 10GM/15ML (ENULOSE) 30ML UDC PO SCH ×4 (08:48→20:11)
[2016-12-24] MEDS ORDERED: OMEP20TA7 PO (08:49)
[2016-12-24] MEDS ORDERED: LACT20SO2 PO (08:49)
[2016-12-24] MEDS ORDERED: SUCR1TAB NG (08:49)
--- NOTE | 2016-12-24 08:57 | Physical Therapy Daily Note ---
PT Daily Note-Current Subjective Patient sleeping in bed pre tx, agrees to PT upon waking. Patient has soiled the bed, nurse notified, will need to be toileted and redressed. Patient has no complaints of pain. Appearance Patient in recliner post tx with chair alarm, has nurse call, phone, tray, all needs met. Nurse in room for meds. Mental Status Patient Orientation: Person Transfers Functional Nolan Measure 0=Not Assessed/NA 4=Minimal Assistance 1=Total Assistance 5=Supervision or Setup 2=Maximal Assistance 6=Modified Nolan 3=Moderate Assistance 7=Complete IndependenceIRFPAI Quality Coding Scale 6 Independent with activity with or without an assistive device 5 Patient requires set up or clean up by helper. Patient completes activity by themselves 4 Supervision or touching assist (CGA). Weston provide cues , steadying assist 3 The helper provides less than half the effort to complete the activity 2 The helper provides more than half the effort to complete the activity 1 Dependent. The helper does all the effort to complete an activity 7 Patient refused to complete or attempt activity 9 The patient did not perform the activity before the current illness or injury 88 Not attempted due to Medical conditions or safety concerns Transfers (B, C, W/C) (FIM): 3 Scootin Rollin Supine to/from Sit: 4 Sit to/from Stand: 3 Bed to/from Chair: 4 patient needs mod assist to stand from low surfaces like a toilet. Gait Training Gait (FIM): 1 Distance: 15'x2 Gait Level of Assist: 4 Gait Persons Needed: 1 Gait Assistive Device: FWW slow, impulsive, shuffling gait, needs assist with directing the walker and cues for safety Treatments Patient transferred supine to sit and then ambulated to the bathroom to use the toilet. After he was done he stood up with mod assist and ambulated to a chair where he was redressed. Assessment Current Status: Fair Progress Patient has poor endurance, he almost was not able to ambulate 15' to the bathroom. PT Short Term Goals Short Term Goals Transfers (B,C,W/C) (FIM): 5 PT Mainframe Analyst Goals Shelter Goals PT Shelter Goals Time Frame: Dec 25, 2016 Transfers (B,C,W/C) (FIM): 5 Gait (FIM): 2 Gait distance (FIM): 9=539-05 ft Gait Assistive Device: FWW PT Plan Problem List Problem List: Activity Tolerance, Functional Strength, Safety, Balance, Gait, Transfer, Bed Mobility Treatment/Plan Treatment Plan: Continue Plan of Care Treatment Plan: Bed Mobility, Education, Functional Activity Katey, Functional Strength, Gait, Safety, Therapeutic Exercise, Transfers Treatment Duration: Dec 25, 2016 Visits Per Week: 5-6 Safety Risks/Education Patient Education: Gait Training, Transfer Techniques, Safety Issues Teaching Recipient: Patient Teaching Methods: Demonstration, Discussion Response to Teaching: Reinforcement Needed Time/GCodes Time In: 830 Time Out: 850 Total Billed Treatment Time: 20 Total Billed Treatment 1 visit GT 20 min MARILYN BELTRAN PT Dec 24, 2016 08:57
--- NOTE | 2016-12-24 09:26 | Progress Note-Cardiology ---
Cardiology SOAP Progress Note Subjective: Sitting up in a chair at the side of the bed. No c/o CP, palpitations, syncope or near syncope. States lose stools have improved. Objective: I&O/Vital Signs Vital Sign - Last 12Hours 12/24/16 12/24/16 08:00 08:00 Temp 98.1 Pulse 79 Resp 16 B/P 151/70 Pulse Ox 97 97 O2 Delivery Room Air Room Air Intake and Output 12/23/16 23:59 Intake Total 900 ml Balance 900 ml Weight (Pounds): 291 Weight (Ounces): 2.0 Weight (Calculated Kilograms): 132.232340 Constitutional: AAO x 3 other Respiratory: No accessory muscle use, No respiratory distress, other (Fair to good air entry bilat, but diminished at the bases) Cardiovascular: regular rate-rhythm S1 and S2 systolic murmur (faint NAY at cardiac base) Gastrointestional: No tender, softNo guarding, audible bowel sounds Extremities: swelling (mild leg edema)No clubbing, No cyanosis Neurologic/Psychiatric: grossly intact Skin: No rash on exposed areas, No ulcerations on exposed areas Results/Procedures: Labs Laboratory Tests 12/24/16 13:47: Lab Scanned Report Transfusion Reaction Form Microbiology 12/15/16 MRSA Screen - Final, Complete MRSA not isolated 12/21/16 Urine Culture - Final, Complete NO GROWTH A/P: Assessment: * Impaired mental status or unwillingness to answer questions or poor recall of history - improved * GI bleed - duodenal ulcers seen on EGD of 12-16-16. Continues to have tarry stollos * H/O multiple GI bleeds including at least 2 admissions to [facility] with GI bleed * Vague mention in [facility] records of a h/o [place] cardiac arrest in April 2015 without any clear documentation * Reports h/o CA for which cardiac cath was advised by Dr. Castillo at [facility] and he refused * Paroxysmal atrial fibrillation/flutter documented on an ECG of 12/16/16 at 9: 37 am. Currently NSR (H/O previous documented a-fib with RVR during hospitalization at [facility] in April 2015) * Spontaneous coagulopathy (elevated PT/INR) * H/O cirrhosis of the liver * ? h/o CVA in April 2015 * Echo of 12/16/16: LVEF 75-80% (hyperdynamic) without wall motion abnormality, mild to mod conc LVH, PASP 40 mmHg * Thrombocytopenia and anemia - management per medical services * Non-compliance with medications * H/O dysphagia * H/O ETOH abuse * HTN * Elevated ammonia levels - management per Medical Services * Hypokalemia Plan: * Complex management due to multiple co-morbidities as listed above and poor historian * S/P EGD which showed duodenal ulcers - management per Medical/Surgical services * Not suitable for full oral or parenteral anticoag due to GI bleed (with previous h/o of GI bleed as well), spontaneous coagulopathy and thrombocytopenia * Vague mention in [facility] records of VT cardiac arrest with no clear documentation in [facility] records we have available - we have been trying to obtain D/C Summary of May 2015 * Replenish K * Monitor labs * Plan per medical services is to discharge home with hospice today * BP not well controlled, adjust medications Physician Assessment Physician Assessment Lungs: fair air entry, diminished at the bases Cor: reg A&R * As documented in our note above RAJESH SHEPHERD BUSINESS LEADER Dec 24, 2016 09:26 ZOEY PASTOR MD FACP FAC CCDS Dec 24, 2016 16:08
[2016-12-24] MEDS ORDERED: PATCH REMOVAL TP SCH (12:00)
[2016-12-24] MEDS: SCOPOLAMINE 1.5 MG (TRANSDERM-SCOP) PATCH TOP SCH (12:02)
[2016-12-24] MEDS ORDERED: amLODIPine 5 MG (NORVASC) TAB PO NR (13:15)
--- NOTE | 2016-12-24 13:40 | Occupational Ther Daily Note ---
OT Current Status-Daily Note Subjective Pt alert, sitting in recliner. Clear liquid lunch in front of pt. Pt declined anymore of his lunch. Did ask for Sprite, OT checked with nrsg and got it. No c/o pain. Mental Status/Objective Patient Orientation: Person Functional Mcbrides Measure 0=Not Assessed/NA 4=Minimal Assistance 1=Total Assistance 5=Supervision or Setup 2=Maximal Assistance 6=Modified Mc[place]ides 3=Moderate Assistance 7=Complete Mc[place]ides Other Treatment Pt completed UE exercises for shldr, biceps and triceps against gravity 10 reps. Arm chair pushups 10 reps, unable to lift buttocks off of chair. Pt then was able to scoot self back in chair and open containers without assist. After therapy, pt sitting in recliner with feet up. Call light/phone in reach. All needs met in room. OT Short Term Goals Short Term Goals Time Frame: Jan 02, 2017 Eating(FIM): 5 Grooming(FIM): 5 Bathing(FIM): 3 Upper Body Dressing(FIM): 4 Lower Body Dressing(FIM): 4 Toileting(FIM): 4 Transfers (B,C,W/C) (FIM): 5 Toilet/Commode Transfer(FIM): 5 Shower Transfer(FIM): 4 Additional Short Term Goals: 1-Demonstrate ADL Tasks, 2-Verbalize Understanding , 3-ImproveStrength/Katey 1=Demonstrate adherence to instructed precautions during ADL tasks. 2=Patient will verbalize/demonstrate understanding of assistive devices/ modifications for ADL. 3=Patient will improve strength/tolerance for activity to enable patient to perform ADL's. OT Parole Agent Goals Parole Agent Goals Time Frame: Jan 16, 2017 Eating (FIM): 6 Grooming(FIM): 6 Bathing(FIM): 5 Upper Body Dressing(FIM): 6 Lower Body Dressing(FIM): 6 Toileting(FIM): 6 Transfers (B,C,W/C) (FIM): 6 Toilet/Commode Transfer(FIM): 6 Shower Transfer(FIM): 5 Additional Goals: 1-Demonstrate ADL Tasks, 2-Verbalize Understanding, 3- ImproveStrength/Katey 1=Demonstrate adherence to instructed precautions during ADL tasks. 2=Patient will verbalize/demonstrate understanding of assistive devices/ modifications for ADL. 3=Patient will improve strength/tolerance for activity to enable patient to perform ADL's. OT Education/Plan Discharge Recommendations Plan/Recommendations: Continue POC Treatment Plan/Plan of Care Patient would benefit from OT for education, treatment and training to promote independence in ADL's, mobility, safety and/or upper extremity function for ADL' s. Plan of Care: ADL Retraining, Functional Mobility, UE Funct Exercise/Act Treatment Duration: Jan 16, 2017 Visits Per Week: 5-6 Agreement: Yes Rehab Potential: Good Time/GCodes Start Time: 13:15 Stop Time: 13:30 Total Time Billed (hr/min): 15 Billed Treatment Time 1 visit-EX 1 (15 min) MARIAM OCHOA Dec 24, 2016 13:40
[2016-12-24 16:27] VITALS: BP 144/67
[2016-12-25] VITALS: BP 140/69
[2016-12-25] MEDS: SUCRALFATE 1 GM (CARAFATE) TAB NG SCH ×4 (05:52→21:00)
[2016-12-25 08:00] VITALS: BP 122/72
[2016-12-25] MEDS: LACTULOSE SYRUP 10GM/15ML (ENULOSE) 30ML UDC PO SCH ×4 (09:00→21:00)
--- NOTE | 2016-12-25 09:17 | Discharge Summary-Hospitalist ---
Diagnosis/Chief Complaint Date of Admission Dec 15, 2016 at 21:43 Date of Discharge Discharge Date: Admission Diagnosis 1.upper GI bleed-consult Dr. Guy for upper and endoscopy, needs evaluation for esophageal varices 2. Lab picture consistent with cirrhotic liver disease uncertain etiology 3. thrombocytopenia is likely secondary to number 2 4. Elevated bilirubin most likely secondary to number 2 5. Questionable history of heart disease or a heart attack-we'll consult Dr. Lang for further evaluation 6. leukocytosis 7. Long PT/INR most likely secondary to number 2 8. Hypomagnesemia Discharge Diagnosis Assessment: 1. upper GI bleed-Dr. Guy performed EGD and found to be secondary to duodenal ulcers s/p 2 units of packed cells and 2 units of FFP 2. Cirrhotic liver disease uncertain etiology-now with grade 3 hepatic encephalopathy 3. thrombocytopenia is likely secondary to number 2 4. Elevated bilirubin most likely secondary to number 2 5. Questionable history of heart disease or a heart attack-we'll consult Dr. Lang for further evaluation 6. leukocytosis-on vancomycin and Zosyn 7. Long PT/INR most likely secondary to number 2 8. Hypomagnesemia 9. atrial fibrillation with poor rate control-treatment per Dr. Riddle 10. hypernatremia 11. status post large amount of emesis likely due to transient bowel obstruction with digested upper GI blood 12. noncompliant with medical management and medical treatments is now hospice candidate Assessment: 1. upper GI bleed-Dr. Guy performed EGD and found to be secondary to duodenal ulcers s/p 2 units of packed cells and 2 units of FFP 2. Cirrhotic liver disease uncertain etiology-now with grade 3 hepatic encephalopathy 3. thrombocytopenia is likely secondary to number 2 4. Elevated bilirubin most likely secondary to number 2 5. Questionable history of heart disease or a heart attack-we'll consult Dr. Lang for further evaluation 6. leukocytosis-on vancomycin and Zosyn 7. Long PT/INR most likely secondary to number 2 8. Hypomagnesemia 9. atrial fibrillation with poor rate control-treatment per Dr. Riddle 10. hypernatremia 11. status post large amount of emesis likely due to transient bowel obstruction with digested upper GI blood 12. noncompliant with medical management and medical treatments is now hospice candidate Refusing to take any medication whatsoever especially lactulose that helps decrease ammonia level Patient refusing to get out of bed and remains in bed Very difficult social issue considering he refuses to take all meds and we are trying for disposition on hospice Hieu CORDERO spoke with his DPOA and explained the situation but he is requesting IV medication to handle all of his needs and that is just not possible considering he is his own person and we cannot force person to do anything even take his medications Needs hospice and disposition tomorrow No fever, vital signs stable, sleeping soundly Regular rate and rhythm, clear to auscultation bilaterally nontender abdomen No edema Assessment: 1. upper GI bleed-Dr. Guy performed EGD and found to be secondary to duodenal ulcers s/p 2 units of packed cells and 2 units of FFP 2. Cirrhotic liver disease uncertain etiology-now with grade 3 hepatic encephalopathy 3. thrombocytopenia is likely secondary to number 2 4. Elevated bilirubin most likely secondary to number 2 5. Questionable history of heart disease or a heart attack-we'll consult Dr. Lang for further evaluation 6. leukocytosis-on vancomycin and Zosyn 7. Long PT/INR most likely secondary to number 2 8. Hypomagnesemia 9. atrial fibrillation with poor rate control-treatment per Dr. Riddle 10. hypernatremia 11. status post large amount of emesis likely due to transient bowel obstruction with digested upper GI blood 12. noncompliant with medical management and medical treatments is now hospice candidate Plan: Await Saturday for RIP on Hospice Poor prognosis and patient non-compliant with any and all medical treatments Reason Hospital Visit/Course this is 66-year-old white male who is a poor historian. He was accepted in transfer from [facility] last night at the request of Dr. Coles because of GI bleeding and recent suspected cardiac history. The patient said he had recently had a heart attack and then went to [facility] to recover. He was discharged last Saturday and went home. He is uncertain of his medications but said he was taking some. He denies having had any stroke or problems with his liver that he knows of in the past. He had become ill yesterday and then began vomiting and could not control it. Vomitus was coffee ground and overnight his hemoglobin has dropped. At the time of my interview he is coughing some, thirsty, but otherwise in no distress. Notes from 12/21/2016: Chart Review: RN called me last night with vomiting issues, I told her to call Dr. Guy. Pt remains stable but Dr. Guy offered exploratory surgery and pt declined. WBC now is much improved from 21.9 to 11.5. Platelets 98k. K 3.3. Hgb 9.1. Ammonia 89 yesterday so maintained lactulose. Patient Interview: Pt states that he feels ok. Pt states that he has not vomited this morning. Dr. Demarco discusses improved bloodwork with pt. Pt denies having pain. Pt has not been eating much, but has been drinking Sprite. Physical exam stable. Pt's last BM was last night. Dr. Demarco discusses palliative care options with pt, and discusses pts liver complications. pleasant, flat affect, overall declined Regular rate and rhythm, diminished breath sounds all dowd Ascites noted Plan: Palliative care Anti-nausea DC to [place] Scribed by Cristiano Lord under the direct supervision of Dr. Demarco. Hospital course: Patient had a standard hospital course following an ulcer bleed and required 2 units of packed red blood cells and FFP. The end-stage of his cirrhosis was very clear that complicated the situation even further. Overall prognosis was extremely poor patient didn't seem to grasp that fact and Dr. Guy General Surgeon had try to alleviate the recurrent nausea he had but he refused all medications given in addition to any surgery that would've been offered for exploratory purposes but overall he has such a poor prognosis that surgery is not an option for this patient. I tried to career guidance counselor him regarding the end-stage status of his illness he does not appear to understand nor want to understand these details so I have asked palliative care nurse to try to career guidance counselor him and the most reasonable option considering the futility of continuing aggressive treatment and refusing those medical options would be to enroll in hospice and provide support during the end stages of his life. Note from 12/24/16: Patient had a lengthy hospital course due to difficulty in disposition and considering his noncompliance with taking medication or medical treatments he was deemed a hospice candidate but was unable to confirm and order that in order to facilitate transfer to a nursing facility. Overall he declined through the weekend was not in any pain or suffering but due to the fact of his end-stage liver disease and his complete noncompliance or refusal all medication he will be deemed a hospice candidate since he is his own person and will no longer be a candidate for aggressive treatment. I did stop his anti- inflammatories and aspirin due to the fact of the bleeding ulcer situation and did prescribe discharge medication but he refuses to take any medication whatsoever so we'll try to support him in any way possible but discharged to nursing facility on hospice is recommended. Note from 12/25/16: Patient still refusing lactulose and once it through his IV and I explained that that would be impossible and he really needs to try his best to help himself get better by taking medication but once again he declines. He reports no pain and wants to eat more and we have advanced his diet. We are in the process of sending to the [facility] to his family but this is a poor prognosis and just overall severe debility and lack of motivation to get better is criteria for hospice. Discharge Summary Discharge Physical Examination Allergies: Coded Allergies: NKANo Known Allergies (Unverified Allergy, Mild, 05/22/09) Vitals & I&Os Vital Signs Date Time Temp Pulse Resp B/P Pulse Ox O2 Delivery O2 Flow Rate FiO2 12/25/16 08:00 98.6 80 17 122/72 97 Room Air Hospital Course Labs (last 24 hrs) Laboratory Tests 12/24/16 13:47: Lab Scanned Report Transfusion Reaction Form Microbiology 12/15/16 MRSA Screen - Final, Complete MRSA not isolated 12/21/16 Urine Culture - Final, Complete NO GROWTH Discharge Home Medications: Active Scripts Active Omeprazole 20 Mg Tablet. 20 Mg PO BID 30 Days Sucralfate 1 Gm Tablet 1 Gm NG ACHS Lactulose 20 Gm/30 Ml Solution 30 Gm PO QID Reported Ibuprofen 100 Mg/5 Ml Oral.susp 20 Ml PO BID Coreg (Carvedilol) 6.25 Mg Tablet 6.25 Mg PO BID Potassium Chloride 20 Meq/15 Ml Liquid 7.5 Ml PO DAILY Furosemide 10 Mg/Ml Soln 2 Ml PO DAILY Aspirin EC (Aspirin) 81 Mg Tablet. 81 Mg PO DAILY Instructions to patient/family Please see electonic discharge instructions given to patient. Clinical Quality Measures DVT/VTE Risk/Contraindication: Risk Factor Score Per Nursin RFS Level Per Nursing on Admit: 4+=Very High Contraindications-Pharm: Other *list below* Other: upper GI bleed SANJANA DEMARCO DO Dec 25, 2016 09:17
[2016-12-25] MEDS: amLODIPine 5 MG (NORVASC) TAB PO SCH (09:46)
[2016-12-25] MEDS: meTOproloL SUCCINATE 50 MG (TOPROL XL) TAB PO SCH (09:46)
[2016-12-25] MEDS: CATHETER FLUSH 10 ML SYR IV PRN ×2 (09:47→22:19)
[2016-12-25] MEDS: PANTOPRAZOLE 40 MG/10 ML (PROTONIX) VIAL IV SCH ×2 (09:47→22:17)
--- NOTE | 2016-12-25 10:06 | Progress Note-Cardiology ---
Cardiology SOAP Progress Note Subjective: In bed. States he feels fine. He has been refusing medications. Inquired as to why he will not take medications. He states "I don't want to". Objective: I&O/Vital Signs Vital Sign - Last 12Hours 12/25/16 12/25/16 08:00 08:00 Temp 98.6 Pulse 80 Resp 17 B/P 122/72 Pulse Ox 97 97 O2 Delivery Room Air Room Air Intake and Output 12/25/16 00:00 Intake Total 1012 ml Balance 1012 ml Weight (Pounds): 292 Weight (Ounces): 2.0 Weight (Calculated Kilograms): 132.334170 Constitutional: AAO x 3 other Respiratory: No accessory muscle use, No respiratory distress, other (Fair to good air entry bilat, but diminished at the bases) Cardiovascular: regular rate-rhythm S1 and S2 systolic murmur (faint NAY at cardiac base) Gastrointestional: No tender, softNo guarding, audible bowel sounds Extremities: swelling (mild leg edema)No clubbing, No cyanosis Neurologic/Psychiatric: grossly intact Skin: No rash on exposed areas, No ulcerations on exposed areas Results/Procedures: Labs Microbiology 12/15/16 MRSA Screen - Final, Complete MRSA not isolated 12/21/16 Urine Culture - Final, Complete NO GROWTH A/P: Assessment: * Impaired mental status or unwillingness to answer questions or poor recall of history - improved * Refusing all medications * GI bleed - duodenal ulcers seen on EGD of 12-16-16. Continues to have tarry stollos * H/O multiple GI bleeds including at least 2 admissions to [facility] with GI bleed * Vague mention in [facility] records of a h/o [place] cardiac arrest in April 2015 without any clear documentation * Reports h/o MA for which cardiac cath was advised by Dr. Castillo at [facility] and he refused * Paroxysmal atrial fibrillation/flutter documented on an ECG of 12/16/16 at 9: 37 am. Currently NSR (H/O previous documented a-fib with RVR during hospitalization at [facility] in April 2015) * Spontaneous coagulopathy (elevated PT/INR) * H/O cirrhosis of the liver * ? h/o CVA in April 2015 * Echo of 12/16/16: LVEF 75-80% (hyperdynamic) without wall motion abnormality, mild to mod conc LVH, PASP 40 mmHg * Thrombocytopenia and anemia - management per medical services * Non-compliance with medications * H/O dysphagia * H/O ETOH abuse * HTN * Elevated ammonia levels - management per Medical Services * Hypokalemia Plan: * Complex management due to multiple co-morbidities as listed above and poor historian * S/P EGD which showed duodenal ulcers - management per Medical/Surgical services * Not suitable for full oral or parenteral anticoag due to GI bleed (with previous h/o of GI bleed as well), spontaneous coagulopathy and thrombocytopenia * Vague mention in [facility] records of [place] cardiac arrest with no clear documentation in [facility] records we have available - we have been trying to obtain D/C Summary of May 2015 * Non-compliance with medications. He is refusing any medications. Discussed with him rationale for medications. He states "I don't want to take them". Nods his head he understands the implications of his decision Physician Assessment Physician Assessment Lungs: fair bilat air entry, diminished at the bases Cor: reg A&R * As documented in our note above RAJESH SHEPHERD SILVER PLATER Dec 25, 2016 10:06 ZOEY PASTOR MD FACP FAC CCDS Dec 25, 2016 14:25
--- NOTE | 2016-12-25 10:16 | Physical Therapy Progress Note ---
Therapy Progress Note Patient declined PT due to fatigue. PT educated patient on importance of exercise and mobility to improve strength and mobility, however, patient continued to decline treatment. PT will attempt later today. 1 ref BARBARA COBB PT Dec 25, 2016 10:16
--- NOTE | 2016-12-25 11:09 | Physical Therapy Progress Note ---
Therapy Progress Note Patient declined second PT attempt due to fatigue. PT will attempt in a.m. 1 ref BARBARA COBB PT Dec 25, 2016 11:09
--- NOTE | 2016-12-25 14:06 | Occupational Ther Daily Note ---
OT Current Status-Daily Note Subjective Pt alert, lying in bed. Pt had odor, pt agreed to sponge bath. No c/o pain. Mental Status/Objective Patient Orientation: Person, Place, Time, Situation Functional Deforest Measure 0=Not Assessed/NA 4=Minimal Assistance 1=Total Assistance 5=Supervision or Setup 2=Maximal Assistance 6=Modified Deforest 3=Moderate Assistance 7=Complete Deforest ADL-Treatment Mod A to go from supine to sitting EOB. Pt stood with CGA and cleansed casandra area/buttocks, no LOB noted. Min A for transfer from bed to chair. Pt was able to open soda can by self and bring to mouth to drink. Pt incontinent of urine. After therapy, pt sitting in recliner with feet elevated and reclined. Safety measures and call light in place. All needs met. Nrsg notified that pt has Sprite. OT Short Term Goals Short Term Goals Time Frame: Jan 02, 2017 Eating(FIM): 5 Grooming(FIM): 5 Bathing(FIM): 3 Upper Body Dressing(FIM): 4 Lower Body Dressing(FIM): 4 Toileting(FIM): 4 Transfers (B,C,W/C) (FIM): 5 Toilet/Commode Transfer(FIM): 5 Shower Transfer(FIM): 4 Additional Short Term Goals: 1-Demonstrate ADL Tasks, 2-Verbalize Understanding , 3-ImproveStrength/Katey 1=Demonstrate adherence to instructed precautions during ADL tasks. 2=Patient will verbalize/demonstrate understanding of assistive devices/ modifications for ADL. 3=Patient will improve strength/tolerance for activity to enable patient to perform ADL's. OT Collar Shaper Operator Goals Penitentiary Goals Time Frame: Jan 16, 2017 Eating (FIM): 6 Grooming(FIM): 6 Bathing(FIM): 5 Upper Body Dressing(FIM): 6 Lower Body Dressing(FIM): 6 Toileting(FIM): 6 Transfers (B,C,W/C) (FIM): 6 Toilet/Commode Transfer(FIM): 6 Shower Transfer(FIM): 5 Additional Goals: 1-Demonstrate ADL Tasks, 2-Verbalize Understanding, 3- ImproveStrength/Katey 1=Demonstrate adherence to instructed precautions during ADL tasks. 2=Patient will verbalize/demonstrate understanding of assistive devices/ modifications for ADL. 3=Patient will improve strength/tolerance for activity to enable patient to perform ADL's. OT Education/Plan Discharge Recommendations Plan/Recommendations: Continue POC Treatment Plan/Plan of Care Patient would benefit from OT for education, treatment and training to promote independence in ADL's, mobility, safety and/or upper extremity function for ADL' s. Plan of Care: ADL Retraining, Functional Mobility, UE Funct Exercise/Act Treatment Duration: Jan 16, 2017 Visits Per Week: 5-6 Agreement: Yes Rehab Potential: Good Time/GCodes Start Time: 13:30 Stop Time: 13:45 Total Time Billed (hr/min): 15 Billed Treatment Time 1 visit-FA 1 (15 min) MARIAM OCHOA Dec 25, 2016 14:05
[2016-12-25 16:00] VITALS: BP 149/65
--- NOTE | 2016-12-25 16:52 | Discharge Inst-Skilled Nursing ---
Discharge Inst-Skilled NF Chief Complaint this is 66-year-old white male who is a poor historian. He was accepted in transfer from [facility] last night at the request of Dr. Coles because of GI bleeding and recent suspected cardiac history. The patient said he had recently had a heart attack and then went to [facility], [place], operated by [facility] to recover. He was discharged last Saturday and went home. He is uncertain of his medications but said he was taking some. He denies having had any stroke or problems with his liver that he knows of in the past. He had become ill yesterday and then began vomiting and could not control it. Vomitus was coffee ground and overnight his hemoglobin has dropped. At the time of my interview he is coughing some, thirsty, but otherwise in no distress. Notes from 12/21/2016: Chart Review: RN called me last night with vomiting issues, I told her to call Dr. Guy. Pt remains stable but Dr. Guy offered exploratory surgery and pt declined. WBC now is much improved from 21.9 to 11.5. Platelets 98k. K 3.3. Hgb 9.1. Ammonia 89 yesterday so maintained lactulose. Patient Interview: Pt states that he feels ok. Pt states that he has not vomited this morning. Dr. Demarco discusses improved bloodwork with pt. Pt denies having pain. Pt has not been eating much, but has been drinking Sprite. Physical exam stable. Pt's last BM was last night. Dr. Demarco discusses palliative care options with pt, and discusses pts liver complications. pleasant, flat affect, overall declined Regular rate and rhythm, diminished breath sounds all dowd Ascites noted Plan: Palliative care Anti-nausea DC to [place] Scribed by Cristiano Lord under the direct supervision of Dr. Demarco. Hospital course: Patient had a standard hospital course following an ulcer bleed and required 2 units of packed red blood cells and FFP. The end-stage of his cirrhosis was very clear that complicated the situation even further. Overall prognosis was extremely poor patient didn't seem to grasp that fact and Dr. Guy General Surgeon had try to alleviate the recurrent nausea he had but he refused all medications given in addition to any surgery that would've been offered for exploratory purposes but overall he has such a poor prognosis that surgery is not an option for this patient. I tried to counselor camp him regarding the end-stage status of his illness he does not appear to understand nor want to understand these details so I have asked palliative care nurse to try to counselor camp him and the most reasonable option considering the futility of continuing aggressive treatment and refusing those medical options would be to enroll in hospice and provide support during the end stages of his life. Note from 12/24/16: Patient had a lengthy hospital course due to difficulty in disposition and considering his noncompliance with taking medication or medical treatments he was deemed a hospice candidate but was unable to confirm and order that in order to facilitate transfer to a nursing facility. Overall he declined through the weekend was not in any pain or suffering but due to the fact of his end-stage liver disease and his complete noncompliance or refusal all medication he will be deemed a hospice candidate since he is his own person and will no longer be a candidate for aggressive treatment. I did stop his anti- inflammatories and aspirin due to the fact of the bleeding ulcer situation and did prescribe discharge medication but he refuses to take any medication whatsoever so we'll try to support him in any way possible but discharged to nursing facility on hospice is recommended. Note from 12/25/16: Patient still refusing lactulose and once it through his IV and I explained that that would be impossible and he really needs to try his best to help himself get better by taking medication but once again he declines. He reports no pain and wants to eat more and we have advanced his diet. We are in the process of sending to the detention close to his family but this is a poor prognosis and just overall severe debility and lack of motivation to get better is criteria for hospice. Patient Instructions Patient Problems: Hepatic encephalopathy Duodenal ulcer bleed s/p EGD Severe debility w/lack of motivation Consult/Follow Up/Orders Skilled NF Admit to: [facility] Certification (SNF) I certify that SNF services are required to be given on an inpatient basis because of the above named patient's need for mcc care on a continuing basis for the conditions(s) for which he/she was receiving inpatient hospital services prior to his/her transfer to the SNF. [facility] Facility Order: Nursing Services, Sewage Treatment Plant Operator-Evaluate & Treat, Physical Therapy-Evaluate & Treat, Speech Language-Evaluate & Treat Discharge Diet: No Restrictions Daily Activity as Tolerated: Yes New & Resume Previous Orders New Medications: Omeprazole (Omeprazole) 20 Mg Tablet.dr 20 MG PO BID Days 30 TAB Lactulose (Lactulose) 20 Gm/30 Ml Solution 30 GM PO QID #8 OZ Sucralfate (Sucralfate) 1 Gm Tablet 1 GM NG ACHS #120 TAB Continued Medications: Carvedilol (Coreg) 6.25 Mg Tablet 6.25 MG PO BID TAB Furosemide (Furosemide) 10 Mg/Ml Soln 2 ML PO DAILY EA Potassium Chloride (Potassium Chloride) 20 Meq/15 Ml Liquid 7.5 ML PO DAILY EA Discontinued Medications: Aspirin (Aspirin EC) 81 Mg Tablet.dr 81 MG PO DAILY TAB Ibuprofen (Ibuprofen) 100 Mg/5 Ml Oral.susp 20 ML PO BID PAIN/TEMP ML Breanna Demarco Dec 25, 2016 16:51 Pneu Vac Indicated: Yes BREANNA DEMARCO DO Dec 25, 2016 16:52
[2016-12-26 00:15] VITALS: BP 130/65
[2016-12-26] MEDS: SUCRALFATE 1 GM (CARAFATE) TAB NG SCH ×2 (06:00→11:00)
[2016-12-26 08:00] VITALS: BP 116/71
--- NOTE | 2016-12-26 08:37 | Progress Note-Cardiology ---
Cardiology SOAP Progress Note Subjective: He does not report cp or palp or dyspnea States stools are finally becoming more normal colored (less black) Wishes to be managed conservatively only for his cardiac issues Objective: I&O/Vital Signs Vital Sign - Last 12Hours 12/26/16 12/26/16 00:15 01:00 Temp 99.5 98.5 Pulse 71 Resp 20 B/P 130/65 Pulse Ox 97 O2 Delivery Room Air Intake and Output 12/26/16 00:00 Intake Total 410 ml Balance 410 ml Weight (Pounds): 292 Weight (Ounces): 2.0 Weight (Calculated Kilograms): 132.740945 Constitutional: AAO x 3 other Respiratory: No accessory muscle use, No respiratory distress, other (Fair to good air entry bilat, but diminished at the bases) Cardiovascular: regular rate-rhythm S1 and S2 systolic murmur (faint NAY at cardiac base) Gastrointestional: No tender, softNo guarding, audible bowel sounds Extremities: swelling (mild leg edema)No clubbing, No cyanosis Neurologic/Psychiatric: grossly intact Skin: No rash on exposed areas, No ulcerations on exposed areas Results/Procedures: Labs Microbiology 12/15/16 MRSA Screen - Final, Complete MRSA not isolated 12/21/16 Urine Culture - Final, Complete NO GROWTH A/P: Assessment: * Impaired mental status or unwillingness to answer questions or poor recall of history - now improved * Refusing all medications * GI bleed - duodenal ulcers seen on EGD of 12-16-16. Has continued to have tarry stools during this relatively long hosp. These are now improving to some degree according to him * H/O multiple GI bleeds including at least 2 admissions to [facility] with GI bleed * Vague mention in [facility] records of a h/o [place] cardiac arrest in April 2015 without any clear documentation * Reports h/o [place] for which cardiac cath was advised by Dr. Castillo at [facility] and he refused * Paroxysmal atrial fibrillation/flutter documented on an ECG of 12/16/16 at 9: 37 am. Currently NSR (H/O previous documented a-fib with RVR during hospitalization at [facility] in April 2015) * Spontaneous coagulopathy (elevated PT/INR) * H/O cirrhosis of the liver * ? h/o CVA in April 2015 * Echo of 12/16/16: LVEF 75-80% (hyperdynamic) without wall motion abnormality, mild to mod conc LVH, PASP 40 mmHg * Thrombocytopenia and anemia - management per medical services * Non-compliance with medications * H/O dysphagia * H/O ETOH abuse * HTN * Elevated ammonia levels - management per Medical Services * He wishes to be managed conservatively only for cardiac issues and continues to take meds erratically and only at will Plan: * Complex management due to multiple co-morbidities as listed above and poor historian * He wishes to be managed conservatively only for cardiac issues and continues to take meds erratically and only at will * Not suitable for full oral or parenteral anticoag due to GI bleed (with previous h/o of GI bleed as well), spontaneous coagulopathy, thrombocytopenia, and clinically continual GI bleed ZOEY PASTOR MD FACP FAC CCDS Dec 26, 2016 08:37
[2016-12-26] MEDS: amLODIPine 5 MG (NORVASC) TAB PO SCH (08:51)
[2016-12-26] MEDS: CATHETER FLUSH 10 ML SYR IV PRN (08:51)
[2016-12-26] MEDS: PANTOPRAZOLE 40 MG/10 ML (PROTONIX) VIAL IV SCH (08:51)
[2016-12-26] MEDS: meTOproloL SUCCINATE 50 MG (TOPROL XL) TAB PO SCH (08:51)
--- NOTE | 2016-12-26 08:51 | Discharge Summary-Hospitalist ---
Diagnosis/Chief Complaint Date of Admission Dec 15, 2016 at 21:43 Date of Discharge Discharge Date: Dec 26, 2016 Admission Diagnosis 1.upper GI bleed-consult Dr. Guy for upper and endoscopy, needs evaluation for esophageal varices 2. Lab picture consistent with cirrhotic liver disease uncertain etiology 3. thrombocytopenia is likely secondary to number 2 4. Elevated bilirubin most likely secondary to number 2 5. Questionable history of heart disease or a heart attack-we'll consult Dr. Lang for further evaluation 6. leukocytosis 7. Long PT/INR most likely secondary to number 2 8. Hypomagnesemia Discharge Diagnosis Assessment: 1. upper GI bleed-Dr. Guy performed EGD and found to be secondary to duodenal ulcers s/p 2 units of packed cells and 2 units of FFP 2. Cirrhotic liver disease uncertain etiology-now with grade 3 hepatic encephalopathy 3. thrombocytopenia is likely secondary to number 2 4. Elevated bilirubin most likely secondary to number 2 5. Questionable history of heart disease or a heart attack-we'll consult Dr. aLng for further evaluation 6. leukocytosis-on vancomycin and Zosyn 7. Long PT/INR most likely secondary to number 2 8. Hypomagnesemia 9. atrial fibrillation with poor rate control-treatment per Dr. Riddle 10. hypernatremia 11. status post large amount of emesis likely due to transient bowel obstruction with digested upper GI blood 12. noncompliant with medical management and medical treatments is now hospice candidate Assessment: 1. upper GI bleed-Dr. Guy performed EGD and found to be secondary to duodenal ulcers s/p 2 units of packed cells and 2 units of FFP 2. Cirrhotic liver disease uncertain etiology-now with grade 3 hepatic encephalopathy 3. thrombocytopenia is likely secondary to number 2 4. Elevated bilirubin most likely secondary to number 2 5. Questionable history of heart disease or a heart attack-we'll consult Dr. Lang for further evaluation 6. leukocytosis-on vancomycin and Zosyn 7. Long PT/INR most likely secondary to number 2 8. Hypomagnesemia 9. atrial fibrillation with poor rate control-treatment per Dr. Riddle 10. hypernatremia 11. status post large amount of emesis likely due to transient bowel obstruction with digested upper GI blood 12. noncompliant with medical management and medical treatments is now hospice candidate Refusing to take any medication whatsoever especially lactulose that helps decrease ammonia level Patient refusing to get out of bed and remains in bed Very difficult social issue considering he refuses to take all meds and we are trying for disposition on hospice Hieu CORDERO spoke with his DPOA and explained the situation but he is requesting IV medication to handle all of his needs and that is just not possible considering he is his own person and we cannot force person to do anything even take his medications Needs hospice and disposition tomorrow No fever, vital signs stable, sleeping soundly Regular rate and rhythm, clear to auscultation bilaterally nontender abdomen No edema Assessment: 1. upper GI bleed-Dr. Guy performed EGD and found to be secondary to duodenal ulcers s/p 2 units of packed cells and 2 units of FFP 2. Cirrhotic liver disease uncertain etiology-now with grade 3 hepatic encephalopathy 3. thrombocytopenia is likely secondary to number 2 4. Elevated bilirubin most likely secondary to number 2 5. Questionable history of heart disease or a heart attack-we'll consult Dr. Lang for further evaluation 6. leukocytosis-on vancomycin and Zosyn 7. Long PT/INR most likely secondary to number 2 8. Hypomagnesemia 9. atrial fibrillation with poor rate control-treatment per Dr. Riddle 10. hypernatremia 11. status post large amount of emesis likely due to transient bowel obstruction with digested upper GI blood 12. noncompliant with medical management and medical treatments is now hospice candidate Plan: Await Saturday for NHP on Hospice Poor prognosis and patient non-compliant with any and all medical treatments Reason Hospital Visit/Course this is 66-year-old white male who is a poor historian. He was accepted in transfer from [facility] last night at the request of Dr. Coles because of GI bleeding and recent suspected cardiac history. The patient said he had recently had a heart attack and then went to [facility] to recover. He was discharged last Saturday and went home. He is uncertain of his medications but said he was taking some. He denies having had any stroke or problems with his liver that he knows of in the past. He had become ill yesterday and then began vomiting and could not control it. Vomitus was coffee ground and overnight his hemoglobin has dropped. At the time of my interview he is coughing some, thirsty, but otherwise in no distress. Notes from 12/21/2016: Chart Review: RN called me last night with vomiting issues, I told her to call Dr. Guy. Pt remains stable but Dr. Guy offered exploratory surgery and pt declined. WBC now is much improved from 21.9 to 11.5. Platelets 98k. K 3.3. Hgb 9.1. Ammonia 89 yesterday so maintained lactulose. Patient Interview: Pt states that he feels ok. Pt states that he has not vomited this morning. Dr. Demarco discusses improved bloodwork with pt. Pt denies having pain. Pt has not been eating much, but has been drinking Sprite. Physical exam stable. Pt's last BM was last night. Dr. Demarco discusses palliative care options with pt, and discusses pts liver complications. pleasant, flat affect, overall declined Regular rate and rhythm, diminished breath sounds all dowd Ascites noted Plan: Palliative care Anti-nausea DC to [place] Scribed by Cristiano oLrd under the direct supervision of Dr. Demarco. Hospital course: Patient had a standard hospital course following an ulcer bleed and required 2 units of packed red blood cells and FFP. The end-stage of his cirrhosis was very clear that complicated the situation even further. Overall prognosis was extremely poor patient didn't seem to grasp that fact and Dr. Guy General Surgeon had try to alleviate the recurrent nausea he had but he refused all medications given in addition to any surgery that would've been offered for exploratory purposes but overall he has such a poor prognosis that surgery is not an option for this patient. I tried to counsellors him regarding the end-stage status of his illness he does not appear to understand nor want to understand these details so I have asked palliative care nurse to try to counsellors him and the most reasonable option considering the futility of continuing aggressive treatment and refusing those medical options would be to enroll in hospice and provide support during the end stages of his life. Note from 12/24/16: Patient had a lengthy hospital course due to difficulty in disposition and considering his noncompliance with taking medication or medical treatments he was deemed a hospice candidate but was unable to confirm and order that in order to facilitate transfer to a nursing facility. Overall he declined through the weekend was not in any pain or suffering but due to the fact of his end-stage liver disease and his complete noncompliance or refusal all medication he will be deemed a hospice candidate since he is his own person and will no longer be a candidate for aggressive treatment. I did stop his anti- inflammatories and aspirin due to the fact of the bleeding ulcer situation and did prescribe discharge medication but he refuses to take any medication whatsoever so we'll try to support him in any way possible but discharged to nursing facility on hospice is recommended. Note from 12/25/16: Patient still refusing lactulose and once it through his IV and I explained that that would be impossible and he really needs to try his best to help himself get better by taking medication but once again he declines. He reports no pain and wants to eat more and we have advanced his diet. We are in the process of sending to the prison close to his family but this is a poor prognosis and just overall severe debility and lack of motivation to get better is criteria for hospice. Note from 12/26/16: Awaiting disposition to [facility] and rehabilitation for skilled and all orders were placed per social work criteria. Overall patient wanting to be discharged to begin recovery but probable poor prognosis is predicted. All medications were reviewed and all orders placed and will monitor patient closely and await for any needs that patient may have prior to discharge. Discharge Summary Discharge Physical Examination Allergies: Coded Allergies: NKANo Known Allergies (Unverified Allergy, Mild, 05/22/09) Vitals & I&Os Vital Signs Date Time Temp Pulse Resp B/P Pulse Ox O2 Delivery O2 Flow Rate FiO2 12/26/16 01:00 98.5 12/26/16 00:15 71 20 130/65 97 Room Air Hospital Course Labs (last 24 hrs) Microbiology 12/15/16 MRSA Screen - Final, Complete MRSA not isolated 12/21/16 Urine Culture - Final, Complete NO GROWTH Discharge Home Medications: Active Scripts Active Omeprazole 20 Mg Tablet.dr 20 Mg PO BID 30 Days Sucralfate 1 Gm Tablet 1 Gm NG ACHS Lactulose 20 Gm/30 Ml Solution 30 Gm PO QID Reported Ibuprofen 100 Mg/5 Ml Oral.susp 20 Ml PO BID Coreg (Carvedilol) 6.25 Mg Tablet 6.25 Mg PO BID Potassium Chloride 20 Meq/15 Ml Liquid 7.5 Ml PO DAILY Furosemide 10 Mg/Ml Soln 2 Ml PO DAILY Aspirin EC (Aspirin) 81 Mg Tablet.dr 81 Mg PO DAILY Instructions to patient/family Please see electonic discharge instructions given to patient. Clinical Quality Measures DVT/VTE Risk/Contraindication: Risk Factor Score Per Nursin RFS Level Per Nursing on Admit: 4+=Very High Contraindications-Pharm: Other *list below* Other: upper GI bleed SANJANA DEMARCO DO Dec 26, 2016 08:50
--- NOTE | 2016-12-26 08:58 | Occupational Ther Daily Note ---
OT Current Status-Daily Note Subjective Pt alert, lying in bed eating breakfast. Pt agreed to therapy. No c/o pain. Requested Sprite, OT ordered for pt. Mental Status/Objective Patient Orientation: Person Functional [place] Measure 0=Not Assessed/NA 4=Minimal Assistance 1=Total Assistance 5=Supervision or Setup 2=Maximal Assistance 6=Modified [place] 3=Moderate Assistance 7=Complete [place] ADL-Treatment Pt had pushed call light for assistance. When OT asked if he needed anything he did not remember using call light. Pt then was looking for something and spotted the Sprite can and said he wanted one. OT then asked if pt wanted his cereal on his tray and pt stated that he had forgotten it was there. OT gave pt sugar substitute packet to open, pt opened packet then attempted to pour it out of the other end, OT assisted. Pt then was able to reach for milk carton which was already open and very slowly started to pour over cereal then drank rest from carton. Pt brought plate and bowl to mouth to eat then spilled milk. OT placed bowl back on tray and pt was able to bring spoon to mouth. Pt has very slow movements when completing eating task. After therapy, nrsg in room and pt lying in bed with call light/phone in reach. All needs met in room. OT Short Term Goals Short Term Goals Time Frame: Jan 02, 2017 Eating(FIM): 5 Grooming(FIM): 5 Bathing(FIM): 3 Upper Body Dressing(FIM): 4 Lower Body Dressing(FIM): 4 Toileting(FIM): 4 Transfers (B,C,W/C) (FIM): 5 Toilet/Commode Transfer(FIM): 5 Shower Transfer(FIM): 4 Additional Short Term Goals: 1-Demonstrate ADL Tasks, 2-Verbalize Understanding , 3-ImproveStrength/Katey 1=Demonstrate adherence to instructed precautions during ADL tasks. 2=Patient will verbalize/demonstrate understanding of assistive devices/ modifications for ADL. 3=Patient will improve strength/tolerance for activity to enable patient to perform ADL's. OT Machined Parts Metal Sprayer Goals Machined Parts Metal Sprayer Goals Time Frame: Jan 16, 2017 Eating (FIM): 6 Grooming(FIM): 6 Bathing(FIM): 5 Upper Body Dressing(FIM): 6 Lower Body Dressing(FIM): 6 Toileting(FIM): 6 Transfers (B,C,W/C) (FIM): 6 Toilet/Commode Transfer(FIM): 6 Shower Transfer(FIM): 5 Additional Goals: 1-Demonstrate ADL Tasks, 2-Verbalize Understanding, 3- ImproveStrength/Katey 1=Demonstrate adherence to instructed precautions during ADL tasks. 2=Patient will verbalize/demonstrate understanding of assistive devices/ modifications for ADL. 3=Patient will improve strength/tolerance for activity to enable patient to perform ADL's. OT Education/Plan Discharge Recommendations Plan/Recommendations: Continue POC Treatment Plan/Plan of Care Patient would benefit from OT for education, treatment and training to promote independence in ADL's, mobility, safety and/or upper extremity function for ADL' s. Plan of Care: ADL Retraining, Functional Mobility, UE Funct Exercise/Act Treatment Duration: Jan 16, 2017 Visits Per Week: 5-6 Agreement: Yes Rehab Potential: Good Time/GCodes Start Time: 08:40 Stop Time: 08:50 Total Time Billed (hr/min): 10 Billed Treatment Time 1 visit-FA 1 (10 min) MARIAM OCHOA Dec 26, 2016 08:58
[2016-12-26] MEDS: LACTULOSE SYRUP 10GM/15ML (ENULOSE) 30ML UDC PO SCH ×2 (09:00→13:00)
--- NOTE | 2016-12-26 14:21 | Physical Therapy Progress Note ---
Therapy Progress Note Pt refused PT tx due to pending discharge that is suppose to happen today. 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 1 visit, no tx CUCA RODRIGUEZ PTA Dec 26, 2016 14:21
[2016-12-26 14:27] VITALS: BP 116/71
== END 2016-12-26 14:31 | DRG 378 ==
LOC: ICU 21:43 → 4TH 12-19 16:21
PROVIDERS: ADMIT Internal Medicine; ATTEND Internal Medicine
PROC: 0DB98ZX Excision of Duodenum, Via Natural or Artificial Opening Endoscopic, Diagnostic (ICD-10-PCS; 2016-12-16)
PROC: 0DB38ZX Excision of Lower Esophagus, Via Natural or Artificial Opening Endoscopic, Diagnostic (ICD-10-PCS; 2016-12-16)
PROC: 0W3P8ZZ Control Bleeding in Gastrointestinal Tract, Via Natural or Artificial Opening Endoscopic (ICD-10-PCS; principal; 2016-12-16 13:50)
DX: K26.4 Chronic or unspecified duodenal ulcer with hemorrhage (principal); B37.81 Candidal esophagitis; D50.0 Iron deficiency anemia secondary to blood loss (chronic); K74.60 Unspecified cirrhosis of liver; D68.4 Acquired coagulation factor deficiency; K72.90 Hepatic failure, unspecified without coma; E87.0 Hyperosmolality and hypernatremia; I48.0 Paroxysmal atrial fibrillation; I10 Essential (primary) hypertension; K44.9 Diaphragmatic hernia without obstruction or gangrene; D69.59 Other secondary thrombocytopenia; E83.42 Hypomagnesemia; R11.10 Vomiting, unspecified; K21.9 Gastro-esophageal reflux disease without esophagitis; I25.2 Old myocardial infarction; E55.9 Vitamin D deficiency, unspecified; E87.6 Hypokalemia; Z86.73 Personal history of transient ischemic attack (TIA), and cerebral infarction without residual deficits; Z91.19 Patient's noncompliance with other medical treatment and regimen
CPT/HCPCS: 36415; 71010; 80048; 80053; 80202; 81000; 82140; 83735; 84100; 84132; 84484; 85007; 85014; 85018; 85025; 85027; 85610; 85730; 86850; 86900; 86901; 86920; 87081; 87088; 88305; 93005; 93306

== ENCOUNTER 2017-11-24 15:22 | Emergency (ER) | payer MEDICARE ==
[~2017-11-24] VITALS: Ht 188 cm; Wt 136.1 kg
[~2017-11-24 15:22] MED LIST changes: +ASPI-983 PO; +CARV6.25 PO; +FRSM10B60 PO; +IBUP100O27 PO; +LACT20SO2 PO; +OMEP20TA7 PO; +POTA20LI PO; +SUCR1TAB NG
--- OUTSIDE RECORDS SUMMARY | 2017-11-24 15:27 | XMS REPORT ---
Author MICHELLE Dalal [facility] Address [address] [facility] [address] [place], [place] [id number] Care Team Providers Care Handbag Parts Cutter Name Role Phone MICHELLE YOUNG PCP Unavailable Allergies and Adverse Reactions Name Reaction Notes No known allergies Plan of Treatment Not available. Medications Active Name Start Date Estimated Completion Date SIG Comments aspirin 81 mg oral tablet,chewable chew 1 tablet (81 mg) by oral route once daily furosemide 10 mg/mL oral solution take 2 milliliters (20 mg) by oral route once daily potassium chloride 20 mEq/15 mL oral liquid Coreg 6.25 mg oral tablet take 1 tablet (6.25 mg) by oral route every 12 hours with food doxycycline hyclate 100 mg oral tablet,delayed release (DR/EC) amoxicillin 500 mg oral capsule take 1 capsule (500 mg) by oral route 3 times per day for 10 days mupirocin 2 % topical ointment apply a small amount to the affected area by topical route 3 times per day Problem List Description Status Onset Chronic heart failure, unspecified heart failure type Active 11/24/2016 Caloric malnutrition Active 11/24/2016 Hypokalemia Active 11/24/2016 Peripheral edema Active 11/24/2016 Vital Signs Date Time BP-Sys(mm[Hg] BP-Alea(mm[Hg]) HR(bpm) RR(rpm) Temp WT HT HC BMI BSA BMI Percentile O2 Sat(%) 11/13/2016 10:14:00 AM 138 mmHg 90 mmHg 89 bpm 18 rpm 96 F Social History Name Description Comments Uses seatbelts History of Procedures Not available. Results Summary Data and Description Results 11/08/2016 6:10 AM GLUCOSE 86.0 mg/dLSODIUM 140.0 mmol/LPOTASSIUM 4.0 mmol/ LCHLORIDE 111.0 mmol/LCO2 21.0 mmol/LBUN 13.0 mg/dLCREATININE 0.70 mg/dLSGOT/ AST 40.0 IU/LSGPT/ALT 19.0 IU/LALK PHOS 87.0 IU/LTOTAL PROTEIN 6.10 g/dLALBUMIN 2.30 g/dLTOTAL BILI 3.20 mg/dLCALCIUM 7.80 mg/dLAGE 66 GFR NonAA 113 GFR AA 137 eGFR >60 mL/min/1.73meGFR AA* >60 WBC 6.9 RBC 3.51 HGB 11.70 g/dLHCT 35.30 % MCV 101.0 fLMCH 33.30 pgMCHC 33.10 g/dLRDW SD 58 RDW CV 15.60 %MPV 10.60 fLPLT 76 NRBC# 0.00 NRBC% 0.0 TRIGLYCERIDES 48.0 mg/dLCHOLESTEROL 73.0 mg/dLHDL 22.0 mg/dLTOT CHOL/HDL 3.3 LDL (CALC) 41.0 mg/dL History Of Immunizations Not available. History of Past Illness Name Date of Onset Comments Thrombocytopenia Protein-Calorie Malnutrition Heart Failure Cellulitis of left lower extremity Cellulitis of right lower extremity Generalized edema Chronic heart failure, unspecified heart failure type 11/24/2016 Caloric malnutrition 11/24/2016 Hypokalemia 11/24/2016 Peripheral edema 11/24/2016 Cellulitis of lower extremity, unspecified laterality Nov 13 2016 10:15AM Moderate Chronic Debility Improving Nov 13 2016 10:15AM Moderate Chronic Peripheral edema Nov 13 2016 10:15AM Hypokalemia Nov 13 2016 10:15AM Moderate Chronic Caloric malnutrition Nov 13 2016 10:15AM Chronic heart failure, unspecified heart failure type Nov 13 2016 10:15AM Payers Insurance Name Company Name Plan Name Plan Number Policy Number Policy Group Number Start Date Medicare RHC Medicare RHC [id number] N/A [facility] - [place] State Plan [employer] - [place] [id number] N/A [facility] [id number] N/A Medicare Part A Medicare - Lab/Xray [id number] N/A History of Encounters Visit Date Visit Type Provider 11/13/2016 Office visit MICHELLE JORDAN
--- OUTSIDE RECORDS SUMMARY | 2017-11-24 15:27 | XMS REPORT ---
Author Author MASTER MORELAND [employer] Address Unknown Phone Unavailable Care Team Providers Care Casting Machine Adjuster Name Role Phone MASTER MORELAND Unavailable Allergies [...] Start Date End Date Status Dosage Carvedilol [facility] [place] [address]-58 12.5 MG Orally two times per day 1 tablet Protonix [facility] [address]-17 40 mg Orally Once a day January 19, 2016 1 packet Potassium Chloride [facility] [address]-03 40 MEQ/15ML (20%) Orally Once a day 2 ml with food Results No Known Results Summary Purpose eClinicalWorks Submission
--- OUTSIDE RECORDS SUMMARY | 2017-11-24 15:27 | XMS REPORT ---
Author Author MARIBEL TURNER [facility] Address [address] [place] [address] Care Team Providers Care Occupational Therapist Rehab Manager Name Role Phone MARIBEL TURNER Unavailable PROBLEMS Type Condition ICD9-CM Code [id number] Code Onset Dates Condition Status SNOMED Code Problem Thrombocytopenia D69.6 Active 252351009 Problem History of stroke Z86.73 Active 010813348 Problem Hematochezia K92.1 Active 001304759 Problem Hypomagnesemia E83.42 Active 108861036 Problem Other cirrhosis of liver K74.69 Active 11172694 Problem Elevated parathyroid hormone E34.9 Active 929887853 Problem Hypertension I10 Active 93932512 Problem Atrial fibrillation, unspecified type I48.91 Active 86493080 Problem Skin ulcer of abdomen, limited to breakdown of skin L98.491 Active 19171503 Problem Right ventricular systolic dysfunction without heart failure I51.89 Active 283742375 Problem Depression, unspecified depression type F32.9 Active 53524541 Problem History of ventricular tachycardia Z86.79 Active 868763362511739 Problem Prolonged QT interval R94.31 Active 691333486 Problem Paroxysmal atrial fibrillation I48.0 Active 465330815 Problem Localized swelling, mass and lump, head R22.0 Active 644713474 Problem History of GI bleed Z87.19 Active 385045909 Problem Vitamin D deficiency E55.9 Active 63108977 Problem Unspecified cirrhosis of liver K74.60 Active 327013009632469 Problem Hematuria R31.9 Active 12867030 ALLERGIES No Information SOCIAL HISTORY Never Assessed PLAN OF CARE Activity Details Follow Up prn Reason: VITAL SIGNS MEDICATIONS Medication Instructions Dosage Frequency Start Date End Date Duration Status Furosemide 20 MG Orally Once a day 4 ml 24h Active Protonix 40 mg Orally Once a day 1 packet 24h Dec, 90 days Active Carvedilol 6.25 MG Orally 2 times a day 1 tablet 12h Active Lexapro 10 MG Orally Once a day 1 tablet 24h Jan, 30 day(s) Active Calmoseptine 0.44-20.6 % Externally to irritated skin 2 times a day as directed 12h 14 Sep, 2016 Active Tylenol 325 MG Orally every 6 hrs 2 tablets as needed 6h Active Zofran 4 MG Orally every 6 hrs as needed 2 tablets Active Lactulose 20 GM/30ML Orally 4 times a day 30ml 6h Active Potassium Chloride ER 10 MEQ Orally Twice a day 1 capsule with food 12h Active Carafate 1 GM Orally 4 times a day 1 tablet on an empty stomach 6h Active RESULTS No Results PROCEDURES Procedure Date Ordered Result Body Site Minor complication (15 mins) March 12, 2017 IMMUNIZATIONS No Known Immunizations MEDICAL (GENERAL) HISTORY Type Description Date Medical History April 2015- Light stroke- [facility]- did rehab in [facility] for a month Medical History Knee arthritis Surgical History vasectomy Surgical History circumcision 1978 Hospitalization History [place] -Stroke April 2015
--- OUTSIDE RECORDS SUMMARY | 2017-11-24 15:27 | XMS REPORT ---
Author Author Abdiaziz Lee Organization [employer] Address Unknown Phone Unavailable Care Team Providers Care Tube Sizer And Cutter Operator Name Role Phone Abdiaziz Lee CP Unavailable Allergies No Known Allergies Problems Problem Type Condition ICD-9 Code Onset Dates Condition Status Problem Chronic kidney disease, unspecified 585.9 Active Problem Muscle weakness (generalized) 728.87 Active Problem Dementia, unspecified, without behavioral disturbance 294.20 Active Problem Rhabdomyolysis 728.88 Active Problem Acute respiratory failure 518.81 Active Problem Altered mental status 780.97 Active Problem Lack of coordination 781.3 Active Problem Unspecified essential hypertension 401.9 Active Problem Hemorrhage of gastrointestinal tract, unspecified 578.9 Active Problem Unspecified renal failure 586 Active Problem Screening for lipoid disorders V77.91 Active Problem Special screening for malignant neoplasms, colon V76.51 Active Problem Atrial fibrillation 427.31 Active Problem Special screening for malignant neoplasm of prostate V76.44 Active Problem Unspecified esophagitis 530.10 Active Problem Edema 782.3 Active Medications No Known Medications Results No Known Results Summary Purpose [employer] Submission
--- OUTSIDE RECORDS SUMMARY | 2017-11-24 15:27 | XMS REPORT ---
Author Author MASTER MORELAND Organization [facility] Address [address] [place] [address] Care Team Providers Care Commercial Portfolio Manager Name Role Phone MASTER MORELAND Unavailable PROBLEMS Type Condition ICD9-CM Code [id number] Code Onset Dates Condition Status SNOMED Code Problem Unspecified cirrhosis of liver K74.60 Active 721711154226360 Problem History of stroke Z86.73 Active 673574339 Problem Hematochezia K92.1 Active 743832768 Problem Other cirrhosis of liver K74.69 Active 47689055 Problem Atrial fibrillation, unspecified type I48.91 Active 48128702 Problem Elevated parathyroid hormone E34.9 Active 167145114 Problem Hypertension I10 Active 92232669 Problem Hypomagnesemia E83.42 Active 713012415 Problem Skin ulcer of abdomen, limited to breakdown of skin L98.491 Active 91990425 Problem Vitamin D deficiency E55.9 Active 83491403 Problem Localized swelling, mass and lump, head R22.0 Active 414820019 Problem Depression, unspecified depression type F32.9 Active 15446501 Problem Hematuria R31.9 Active 05897810 Problem Prolonged QT interval R94.31 Active 527113614 Problem Right ventricular systolic dysfunction without heart failure I51.89 Active 736059048 Problem Thrombocytopenia D69.6 Active 226880279 Problem History of GI bleed Z87.19 Active 547789779 Problem History of ventricular tachycardia Z86.79 Active 342579143636635 Problem Paroxysmal atrial fibrillation I48.0 Active 386107297 ALLERGIES Unknown Allergies SOCIAL HISTORY No smoking Hx information available PLAN OF CARE VITAL SIGNS MEDICATIONS No Known Medications RESULTS No Results PROCEDURES No Known procedures IMMUNIZATIONS No Known Immunizations
--- OUTSIDE RECORDS SUMMARY | 2017-11-24 15:27 | XMS REPORT ---
Author Author MASTER MORELAND Organization [facility] Address [address] [place] [address] Care Team Providers Care Keypuncher Name Role Phone MASTER MORELAND Unavailable PROBLEMS Type Condition ICD9-CM Code [id number] Code Onset Dates Condition Status SNOMED Code Problem Prolonged QT interval R94.31 Active 757989349 Problem History of GI bleed Z87.19 Active 434794170 Problem Right ventricular systolic dysfunction without heart failure I51.89 Active 802097858 Problem Elevated parathyroid hormone E34.9 Active 372624558 Problem Hypertension I10 Active 36030920 Problem Unspecified cirrhosis of liver K74.60 Active 755110988447942 Problem Paroxysmal atrial fibrillation I48.0 Active 874266523 Problem History of stroke Z86.73 Active 473727175 Problem Hematochezia K92.1 Active 676119618 Problem Vitamin D deficiency E55.9 Active 37397133 Problem Localized swelling, mass and lump, head R22.0 Active 432429267 Problem Thrombocytopenia D69.6 Active 642386092 Problem Hematuria R31.9 Active 79903837 Problem History of ventricular tachycardia Z86.79 Active 268023414636577 ALLERGIES Unknown Allergies SOCIAL HISTORY No smoking Hx information available PLAN OF CARE VITAL SIGNS MEDICATIONS Medication Instructions Dosage Frequency Start Date End Date Duration Status Potassium Chloride 40 MEQ/15ML (20%) Orally Once a day 2 ml with food 24h 90 days Active Furosemide 10 MG/ML Orally Once a day 2 ml 24h 90 days Active RESULTS No Results PROCEDURES No Known procedures IMMUNIZATIONS No Known Immunizations
--- OUTSIDE RECORDS SUMMARY | 2017-11-24 15:28 | XMS REPORT ---
Author Author LANE CAMPBELL Organization [facility] Address [address] [place] [address] Care Team Providers Care Intake Coordinator Name Role Phone LANE CAMPBELL Unavailable PROBLEMS Type Condition ICD9-CM Code QNT06-PI Code Onset Dates Condition Status SNOMED Code Problem Prolonged QT interval R94.31 Active 387123006 Problem History of GI bleed Z87.19 Active 034303047 Problem Right ventricular systolic dysfunction without heart failure I51.89 Active 332540379 Problem Elevated parathyroid hormone E34.9 Active 554134053 Problem Hypertension I10 Active 26323940 Problem Unspecified cirrhosis of liver K74.60 Active 081906112336229 Problem Paroxysmal atrial fibrillation I48.0 Active 332230755 Problem History of stroke Z86.73 Active 483808229 Problem Hematochezia K92.1 Active 363068043 Assessment Poor hygiene R46.0 Aug, Active 265328514 Problem Vitamin D deficiency E55.9 Active 01598307 Problem Localized swelling, mass and lump, head R22.0 Active 226868982 Assessment Muscle strain T14.8 Aug, Active 73821644 Problem Thrombocytopenia D69.6 Active 470980426 Problem Hematuria R31.9 Active 52603706 Problem History of ventricular tachycardia Z86.79 Active 855094512737025 ALLERGIES Substance Reaction Event Type Date Status N.K.D.A. Unknown Non Drug Allergy Aug, Unknown SOCIAL HISTORY No smoking Hx information available PLAN OF CARE VITAL SIGNS Height 74.4 in 2016-09-18 Weight 322 lbs 2016-09-18 Heart Rate 84 bpm 2016-09-18 Respiratory Rate 20 2016-09-18 BMI 40.89 kg/m2 2016-09-18 Blood pressure systolic 128 mmHg 2016-09-18 Blood pressure diastolic 76 mmHg 2016-09-18 MEDICATIONS Medication Instructions Dosage Frequency Start Date End Date Duration Status Protonix 40 mg Orally Once a day 1 packet 24h Dec, 90 Active Furosemide 10 MG/ML Orally Once a day 2 ml 24h 90 days Active Potassium Chloride 40 MEQ/15ML (20%) Orally Once a day 2 ml with food 24h 90 days Active Billie Aspirin EC Low Dose 81 MG Orally Once a day 1 tablet 24h Active Carvedilol 12.5 MG TAKE ONE TABLET BY MOUTH TWICE DAILY 90 Active RESULTS No Results PROCEDURES Procedure Date Ordered Related Diagnosis Body Site [facility] VISIT ESTABLISHED PATIENT Sep 18, 2016 Office Visit, Est Pt., Level 3 Sep 18, 2016 IMMUNIZATIONS No Known Immunizations
--- OUTSIDE RECORDS SUMMARY | 2017-11-24 15:28 | XMS REPORT ---
Author Author MASTER MORELAND Organization [facility] Address [address] [place] [address] Care Team Providers Care Worship Director Name Role Phone MASTER MORELAND Unavailable PROBLEMS Type Condition ICD9-CM Code [id number] Code Onset Dates Condition Status SNOMED Code Problem Unspecified cirrhosis of liver K74.60 Active 147932822446875 Problem History of stroke Z86.73 Active 146083641 Problem Hematochezia K92.1 Active 168179349 Problem Other cirrhosis of liver K74.69 Active 33211279 Problem Atrial fibrillation, unspecified type I48.91 Active 31927760 Problem Elevated parathyroid hormone E34.9 Active 055668179 Problem Hypertension I10 Active 58287522 Problem Hypomagnesemia E83.42 Active 911360184 Problem Skin ulcer of abdomen, limited to breakdown of skin L98.491 Active 29294414 Problem Vitamin D deficiency E55.9 Active 02661430 Problem Localized swelling, mass and lump, head R22.0 Active 153716729 Problem Depression, unspecified depression type F32.9 Active 90912389 Problem Hematuria R31.9 Active 79283050 Problem Prolonged QT interval R94.31 Active 515223636 Problem Right ventricular systolic dysfunction without heart failure I51.89 Active 333066310 Problem Thrombocytopenia D69.6 Active 200748584 Problem History of GI bleed Z87.19 Active 687344536 Problem History of ventricular tachycardia Z86.79 Active 813283171570650 Problem Paroxysmal atrial fibrillation I48.0 Active 713155388 ALLERGIES Unknown Allergies SOCIAL HISTORY No smoking Hx information available PLAN OF CARE VITAL SIGNS MEDICATIONS No Known Medications RESULTS No Results PROCEDURES No Known procedures IMMUNIZATIONS No Known Immunizations
--- OUTSIDE RECORDS SUMMARY | 2017-11-24 15:28 | XMS REPORT ---
Author Author ANICETO MASTER [facility] Address [address] [place] [address] Care Team Providers Care Strategic Marketing Manager Name Role Phone MASTER MORELAND Unavailable PROBLEMS Type Condition ICD9-CM Code IWA38-XA Code Onset Dates Condition Status SNOMED Code Problem Unspecified cirrhosis of liver K74.60 Active 807589209219797 Problem History of stroke Z86.73 Active 976286457 Problem Hematochezia K92.1 Active 556577594 Problem Other cirrhosis of liver K74.69 Active 15799917 Problem Atrial fibrillation, unspecified type I48.91 Active 97995336 Problem Elevated parathyroid hormone E34.9 Active 491606198 Problem Hypertension I10 Active 89927072 Problem Hypomagnesemia E83.42 Active 470256737 Problem Skin ulcer of abdomen, limited to breakdown of skin L98.491 Active 71318486 Problem Vitamin D deficiency E55.9 Active 39132635 Problem Localized swelling, mass and lump, head R22.0 Active 845113223 Problem Depression, unspecified depression type F32.9 Active 43068500 Problem Hematuria R31.9 Active 71705595 Problem Prolonged QT interval R94.31 Active 343133774 Problem Right ventricular systolic dysfunction without heart failure I51.89 Active 975067262 Problem Thrombocytopenia D69.6 Active 242976641 Problem History of GI bleed Z87.19 Active 610756458 Problem History of ventricular tachycardia Z86.79 Active 183445096509850 Problem Paroxysmal atrial fibrillation I48.0 Active 006793399 ALLERGIES Substance Reaction Event Type Date Status N.K.D.A. Unknown Non Drug Allergy Sep, Unknown SOCIAL HISTORY No smoking Hx information available PLAN OF CARE Activity Details Follow Up 4 Weeks Reason:Liver disease VITAL SIGNS Height 74.4 in 2016-10-10 Weight 307.7 lbs 2016-10-10 Temperature 98.6 degrees Fahrenheit 2016-10-10 Heart Rate 80 bpm 2016-10-10 Respiratory Rate 18 2016-10-10 BMI 39.08 kg/m2 2016-10-10 Blood pressure systolic 138 mmHg 2016-10-10 Blood pressure diastolic 77 mmHg 2016-10-10 MEDICATIONS Medication Instructions Dosage Frequency Start Date End Date Duration Status Carvedilol 12.5 MG Orally 2 times a day 1 tablet 12h 90 days Active Potassium Chloride 40 MEQ/15ML (20%) Orally Once a day 15 ml with food 24h 12 Mar, 2017 30 days Active Calmoseptine 0.44-20.6 % Externally to irritated skin 2 times a day as directed 12h 14 Sep, 2016 Active Protonix 40 mg Orally Once a day 1 packet 24h 24 Dec, 2015 90 days Active Billie Aspirin EC Low Dose 81 MG Orally Once a day 1 tablet 24h 30 days Active Furosemide 10 MG/ML Orally Once a day 4 ml 24h 30 days Active RESULTS Name Result Date Reference Range AFP TUMOR MARKER, SERUM 2016-10-10 AFP, Serum, Tumor Marker 2.6 0.0-8.3 PTH (INTACT) 2016-10-10 PTH, Intact 20 15-65 CBC 2016-10-10 WBC 7.0 3.4-10.8 RBC 3.72 4.14-5.80 Hemoglobin 12.5 12.6-17.7 Hematocrit 36.4 37.5-51.0 MCV 98 79-97 MCH 33.6 26.6-33.0 MCHC 34.3 31.5-35.7 RDW 14.6 12.3-15.4 Platelets 80 150-379 Neutrophils 56 Lymphs 26 Monocytes 11 Eos 6 Basos 1 Immature Cells Neutrophils (Absolute) 4.0 1.4-7.0 Lymphs (Absolute) 1.8 0.7-3.1 Monocytes(Absolute) 0.8 0.1-0.9 Eos (Absolute) 0.4 0.0-0.4 Baso (Absolute) 0.1 0.0-0.2 Immature Granulocytes 0 Immature Grans (Abs) 0.0 0.0-0.1 Hematology Comments: Note: BNP 2016-10-10 B-Type Natriuretic Peptide 189.4 0.0-100.0 LIPID PANEL 2016-10-10 Cholesterol, Total 62 100-199 Triglycerides 51 0-149 HDL Cholesterol 20 >39 VLDL Cholesterol Sarthak 10 5-40 LDL Cholesterol Calc 32 0-99 CMP 2016-10-10 Glucose, Serum 142 65-99 BUN 9 8-27 Creatinine, Serum 0.78 0.76-1.27 eGFR If NonAfricn Am 95 >59 eGFR If Africn Am 110 >59 BUN/Creatinine Ratio 12 10-22 Sodium, Serum 145 134-144 Potassium, Serum 3.6 3.5-5.2 Chloride, Serum 108 96-106 Carbon Dioxide, Total 22 18-29 Calcium, Serum 8.1 8.6-10.2 Protein, Total, Serum 6.0 6.0-8.5 Albumin, Serum 2.4 3.6-4.8 Globulin, Total 3.6 1.5-4.5 A/G Ratio 0.7 1.1-2.5 Bilirubin, Total 3.0 0.0-1.2 Alkaline Phosphatase, S 117 39-117 AST (SGOT) 74 0-40 ALT (SGPT) 36 0-44 PROCEDURES Procedure Date Ordered Related Diagnosis Body [facility] Oct 10, 2016 VENIPUNCT, ROUTINE* Oct 10, 2016 Office Visit, Est Pt., Level 4 Oct 10, 2016 [facility] VISIT ESTABLISHED PATIENT Oct 10, 2016 IMMUNIZATIONS No Known Immunizations
--- OUTSIDE RECORDS SUMMARY | 2017-11-24 15:28 | XMS REPORT ---
Author Author MARIBEL TURNER [facility] Address [address] [place] [address] Care Team Providers Care Retail Seasonal Specialist Name Role Phone MARIBEL TURNER Unavailable PROBLEMS Type Condition ICD9-CM Code [id number] Code Onset Dates Condition Status SNOMED Code Problem Thrombocytopenia D69.6 Active 842105803 Problem History of stroke Z86.73 Active 146940520 Problem Hematochezia K92.1 Active 635638151 Problem Hypomagnesemia E83.42 Active 595969240 Problem Other cirrhosis of liver K74.69 Active 54210548 Problem Elevated parathyroid hormone E34.9 Active 786606750 Problem Hypertension I10 Active 66409644 Problem Atrial fibrillation, unspecified type I48.91 Active 36866605 Problem Skin ulcer of abdomen, limited to breakdown of skin L98.491 Active 53114106 Problem Right ventricular systolic dysfunction without heart failure I51.89 Active 024893923 Problem Depression, unspecified depression type F32.9 Active 90559521 Problem History of ventricular tachycardia Z86.79 Active 934630658660725 Problem Prolonged QT interval R94.31 Active 521759403 Problem Paroxysmal atrial fibrillation I48.0 Active 556547500 Problem Localized swelling, mass and lump, head R22.0 Active 177348956 Problem History of GI bleed Z87.19 Active 464787638 Problem Vitamin D deficiency E55.9 Active 82215524 Problem Unspecified cirrhosis of liver K74.60 Active 413644057887350 Problem Hematuria R31.9 Active 31754956 ALLERGIES No Information SOCIAL HISTORY Never Assessed PLAN OF CARE VITAL SIGNS MEDICATIONS Medication Instructions Dosage Frequency Start Date End Date Duration Status Potassium Chloride 40 MEQ/15ML (20%) Orally Once a day 15 ml with food 24h 12 Mar, 2017 Active Furosemide 10 MG/ML Orally twice a day 4 ml 12h Active RESULTS No Results PROCEDURES No Known procedures IMMUNIZATIONS No Known Immunizations MEDICAL (GENERAL) HISTORY Type Description Date Medical History April 2015- Light stroke- [facility]- did rehab in [facility] for a month Medical History Knee arthritis Surgical History vasectomy Surgical History circumcision 1978 Hospitalization History [place] -Stroke April 2015
--- OUTSIDE RECORDS SUMMARY | 2017-11-24 15:28 | XMS REPORT ---
Author Author Abdiaziz Lee Organization [employer] Address Unknown Phone Unavailable Care Team Providers Care Inker And Opaquer Name Role Phone Abdiaziz Lee CP Unavailable Allergies, Adverse Reactions, Alerts Substance Reaction Event Type N.K.D.A. Info Not Available Non Drug Allergy Problems Problem Type Condition ICD-9 Code Onset Dates Condition Status Problem Chronic kidney disease, unspecified 585.9 Active Problem Muscle weakness (generalized) 728.87 Active Problem Dementia, unspecified, without behavioral disturbance 294.20 Active Problem Rhabdomyolysis 728.88 Active Assessment Unspecified essential hypertension 401.9 Active Problem Acute respiratory failure 518.81 Active Assessment Special screening for malignant neoplasm of prostate V76.44 Active Assessment Special screening for malignant neoplasms, colon V76.51 Active Problem Altered mental status 780.97 Active Problem Lack of coordination 781.3 Active Problem Unspecified essential hypertension 401.9 Active Problem Hemorrhage of gastrointestinal tract, unspecified 578.9 Active Problem Unspecified renal failure 586 Active Assessment Chronic kidney disease, unspecified 585.9 Active Assessment Edema 782.3 Active Assessment Atrial fibrillation 427.31 Active Assessment Unspecified esophagitis 530.10 Active Problem Screening for lipoid disorders V77.91 Active Problem Special screening for malignant neoplasms, colon V76.51 Active Problem Atrial fibrillation 427.31 Active Problem Special screening for malignant neoplasm of prostate V76.44 Active Assessment Screening for lipoid disorders V77.91 Active Problem Unspecified esophagitis 530.10 Active Problem Edema 782.3 Active Medications Medication Code System Code Instructions Start Date End Date Status Dosage Amiodarone HCl [facility] [address]-87 200 MG Orally Twice a day 1 tablet Protonix [facility] [address]-10 40 MG Orally Twice a day 1 tablet Aspirin [facility] [address]-64 325 MG Orally Once a day 1 tablet Vitamin D (Ergocalciferol) [facility] [address]-67 99275 UNIT Orally weekly 1 capsule Spironolactone [facility] [address]-85 25 MG Orally Twice a day 1 tablet Vancomycin HCl [facility] [address]-71 125 MG Orally every 6 hrs 1 capsule Coreg [facility] [address]-69 6.25 MG Orally Twice a day 1 tablet with food Procedures Procedure Coding System Code Date BP SYS <130 AND BREWER <80 CPT-4 G8476 Jun 14, 2015 TOBACCO NON-USER CPT-4 G8457 Jun 14, 2015 DOC PAIN ASSESS NO DOC F/U PLAN RNS CPT-4 G8509 Jun 14, 2015 TX PLAN DEVELOP & DOCUMENT CPT-4 G8437 Jun 14, 2015 CLIN DEPRESSION SCREEN DOC CPT-4 G8431 Jun 14, 2015 PRESCRIPTION BY E-PRESCRIB S CPT-4 G8443 Jun 14, 2015 PAIN ASSESSMENT DOCUMENT CPT-4 G8440 Jun 14, 2015 AT LEAST 1 RX TRANSMIT ERX SYS CPT-4 G8553 Jun 14, 2015 MOST RECENT SYSTOLIC BP <140 MM HG CPT-4 G8588 Jun 14, 2015 FLU VACCINE NOT SCREEN CPT-4 G8424 Jun 14, 2015 MOST RECENT DIASTOLIC BP <90 MM HG CPT-4 G8590 Jun 14, 2015 ASPIRIN/OTH ANTITHROMBOTIC TX USED CPT-4 G8598 Jun 14, 2015 DOC MEDS VERIFIED W/PT OR RE CPT-4 G8427 Jun 14, 2015 Office Visit, Est Pt., Level 4 CPT-4 47040 Jun 14, 2015 BMI>=30OR<22 CARLINE NO FOLLOWUP CPT-4 G8419 Jun 14, 2015 Vital Signs Date/Time: Jun 14, 2015 BMI 37.49 Index Weight 300 lbs Height 75 in Respiratory Rate 18 /min Temperature 98.1 F Cardiac Monitoring Heart Rate 57 /min Oximetry 96 % Blood Pressure Diastolic 62 mm Hg Blood Pressure Systolic 106 mm Hg Results No Known Results Summary Purpose [employer]Clinical[employer] Submission
--- OUTSIDE RECORDS SUMMARY | 2017-11-24 15:28 | XMS REPORT ---
Author Author MARIBEL TURNER Organization [facility] Address [address] [place] [address] Care Team Providers Care Automotive Warranty Administrator Name Role Phone MARIBEL TURNER Unavailable PROBLEMS Type Condition ICD9-CM Code DZA16-JL Code Onset Dates Condition Status SNOMED Code Problem Thrombocytopenia D69.6 Active 591685530 Problem History of stroke Z86.73 Active 651605939 Problem Hematochezia K92.1 Active 756787513 Problem Hypomagnesemia E83.42 Active 662892228 Problem Other cirrhosis of liver K74.69 Active 28688689 Problem Elevated parathyroid hormone E34.9 Active 980500355 Problem Hypertension I10 Active 93403627 Problem Atrial fibrillation, unspecified type I48.91 Active 78097002 Problem Skin ulcer of abdomen, limited to breakdown of skin L98.491 Active 44513070 Problem Right ventricular systolic dysfunction without heart failure I51.89 Active 021974171 Problem Depression, unspecified depression type F32.9 Active 16919050 Problem History of ventricular tachycardia Z86.79 Active 265624839567407 Problem Prolonged QT interval R94.31 Active 755728497 Problem Paroxysmal atrial fibrillation I48.0 Active 399394735 Problem Localized swelling, mass and lump, head R22.0 Active 814427027 Problem History of GI bleed Z87.19 Active 634649694 Problem Vitamin D deficiency E55.9 Active 43254864 Problem Unspecified cirrhosis of liver K74.60 Active 124662758529271 Problem Hematuria R31.9 Active 18384756 ALLERGIES No Information SOCIAL HISTORY Never Assessed PLAN OF CARE VITAL SIGNS MEDICATIONS No Known Medications RESULTS No Results PROCEDURES No Known procedures IMMUNIZATIONS No Known Immunizations MEDICAL (GENERAL) HISTORY Type Description Date Medical History April 2015- Light stroke- [facility]- did rehab in [facility] for a month Medical History Knee arthritis Surgical History vasectomy Surgical History circumcision 1979 Hospitalization History [place] -Stroke April 2015
--- OUTSIDE RECORDS SUMMARY | 2017-11-24 15:28 | XMS REPORT ---
Author Author [facility] Organization [facility] Address [address] [place], [place] [address] Care Team Providers Care Flagger Name Role Phone PCP Unavailable Allergies and Adverse Reactions Name [...] route 3 times per day Problem List Not available. Vital Signs Not available. Social History Name Description Comments Uses seatbelts [...] Cellulitis of right lower extremity Generalized edema Payers Not available. History of Encounters Not available.
--- OUTSIDE RECORDS SUMMARY | 2017-11-24 15:29 | XMS REPORT | Continuity of Care Document ---
Author Author [facility] Address Unknown Phone Unavailable Allergies There is no data. Medications There is no data. Problems There is no data. Procedures There is no data. Results There is no data. Encounters ACCT No. Visit Date/Time Discharge Status Pt. Type Provider Facility Loc./Unit Complaint [id number] 11/15/2016 12:42:55 11/15/2016 23:59:59 [facility] Outpatient MICHELLE YOUNG [id number] 01/25/2014 12:21:33 Document Registration
--- OUTSIDE RECORDS SUMMARY | 2017-11-24 15:29 | XMS REPORT ---
Author Author MASTER MORELAND [employer] Address Unknown Phone Unavailable Care Team Providers Care Pallet Assembler Name Role Phone MASTER MORELAND Unavailable Allergies, Adverse Reactions, Alerts Substance Reaction Event Type N.K.D.A. Info Not Available Non Drug Allergy Problems Problem Type Condition Code Onset Dates Condition Status Problem Thrombocytopenia D69.6 Active Problem Prolonged QT interval R94.31 Active Problem History of ventricular tachycardia Z86.79 Active Problem History of stroke Z86.73 Active Problem Hematochezia K92.1 Active Problem Hypertension I10 Active Problem History of GI bleed Z87.19 Active Problem Right ventricular systolic dysfunction without heart failure I51.89 Active Problem Unspecified cirrhosis of liver K74.60 Active Problem Paroxysmal atrial fibrillation I48.0 Active Assessment History of GI bleed Z87.19 Active Assessment Hematuria R31.9 Active Assessment Hypertension I10 Active Problem Vitamin D deficiency E55.9 Active Assessment Vitamin D deficiency E55.9 Active Problem Localized swelling, mass and lump, head R22.0 Active Medications Medication Code System Code Instructions Start Date End Date Status Dosage Carvedilol [facility] [address]-89 12.5 MG Orally two times per day 1 tablet EQL Vitamin D Gummies Child [facility] 01170-78986 400 UNIT Orally Once a day January 19, 2016 Aug 16, 2016 5 tablets Potassium Chloride [facility] [address]-38 40 MEQ/15ML (20%) Orally Once a day 2 ml with food Protonix [facility] [address]-58 40 MG Orally Once a day January 19, 2016 1 packet Furosemide [facility] [address]-54 10 MG/ML Orally Once a day 2 ml Billie Aspirin EC Low Dose [facility] [address]-48 81 MG Orally Once a day 1 tablet Procedures Procedure Coding System Code Date [facility] VISIT ESTABLISHED PATIENT CPT-4 G0467 January 19, 2016 Office Visit, Est Pt., Level 3 CPT-4 47294 January 19, 2016 LAB [facility] CPT-4 NOBLL January 19, 2016 Vital Signs Date/Time: January 19, 2016 Temperature 97.7 F Weight 311.6 lbs Height 74.4 in BMI 39.57 Index Blood Pressure Diastolic 84 mmHg Blood Pressure Systolic 150 mmHg Cardiac Monitoring Heart Rate 76 bpm Results Name Result Date Reference Range Unit Abnormality Flag UA W/ MICROSCOPY ----RBC 11-30 [id number] 0 - 2 /hpf A ----WBC 0-5 [id number] 0 - 5 /hpf ----Mucus Threads Present 20160119 Not Estab. ----Epithelial Cells (non renal) None seen [id number] 0 - 10 /hpf ----Occult Blood 3+ [id number] Negative A ----Ketones Negative 20160119 Negative ----Bacteria Few 20160119 None seen/Few ----Glucose Negative 20160119 Negative ----Protein Negative 20160119 Negative/Trace ----WBC Esterase Negative 20160119 Negative ----Urobilinogen,Semi-Qn 1.0 20160119 0.2-1.0 mg/dL ----Bilirubin Negative 20160119 Negative ----Microscopic Examination See below: 20160119 ----Nitrite, Urine Negative 20160119 Negative ----Specific [place] 1.012 20160119 1.005-1.030 ----pH 6.0 20160119 5.0-7.5 ----Urine-Color Yellow 20160119 Yellow ----Appearance Clear 20160119 Clear Summary Purpose eClinicalWorks Submission
--- OUTSIDE RECORDS SUMMARY | 2017-11-24 15:29 | XMS REPORT ---
Author Author MASTER MORELAND Organization [facility] Address [address] [place] [address] Care Team Providers Care Glass Worker Name Role Phone MASTER MORELAND Unavailable PROBLEMS Type Condition ICD9-CM Code DNT80-FG Code Onset Dates Condition Status SNOMED Code Problem Thrombocytopenia D69.6 Active 249300310 Problem History of stroke Z86.73 Active 135904715 Problem Hematochezia K92.1 Active 107064122 Problem Hypomagnesemia E83.42 Active 239539947 Problem Other cirrhosis of liver K74.69 Active 81235798 Problem Elevated parathyroid hormone E34.9 Active 072451972 Problem Hypertension I10 Active 11942288 Problem Atrial fibrillation, unspecified type I48.91 Active 74552683 Problem Skin ulcer of abdomen, limited to breakdown of skin L98.491 Active 92147756 Problem Right ventricular systolic dysfunction without heart failure I51.89 Active 899153722 Problem Depression, unspecified depression type F32.9 Active 36624456 Problem History of ventricular tachycardia Z86.79 Active 157588230559593 Problem Prolonged QT interval R94.31 Active 100021510 Problem Paroxysmal atrial fibrillation I48.0 Active 870279599 Problem Localized swelling, mass and lump, head R22.0 Active 751748429 Problem History of GI bleed Z87.19 Active 781953115 Problem Vitamin D deficiency E55.9 Active 66403891 Problem Unspecified cirrhosis of liver K74.60 Active 408640375258619 Problem Hematuria R31.9 Active 24064086 ALLERGIES Unknown Allergies SOCIAL HISTORY No smoking Hx information available PLAN OF CARE VITAL SIGNS MEDICATIONS No Known Medications RESULTS No Results PROCEDURES No Known procedures IMMUNIZATIONS No Known Immunizations
--- NOTE | 2017-11-24 16:11 | ED Lower Extremity ---
General Chief Complaint: Lower Extremity Stated Complaint: FALL,FEVER Nursing Triage Note: pt to ed via ems from residential, pt fell on saturday and is c/o right lower leg pain. residential also reports pt has been running fever. Nursing Sepsis Screen: Possible Sepsis Risk Source: patient Exam Limitations: other (orientation) History of Present Illness Date Seen by Provider: Nov 24, 2017 Time Seen by Provider: 16:06 Initial Comments The patient is a 67-year-old white male from a local residential. He is non- ambulatory. He is a very poor historian. He apparently fell on Saturday and has had complaints of right hip and ankle pain since that time. In addition he is said to been febrile all others no documentation to that effect. When questioned about his ambulatory status he stated that the he had previously had a stroke but otherwise cannot explain why he did not ambulate. Severity: mild Pain/Injury Location: right hip, right ankle Method of Injury: fell Allergies and Home Medications Allergies Coded Allergies: NKANo Known Allergies (Unverified Allergy, Mild, 05/22/09) Home Medications Carvedilol 6.25 Mg Tablet, 6.25 MG PO BID, (Reported) Furosemide 10 Mg/Ml Soln, 2 ML PO DAILY, (Reported) Lactulose 20 Gm/30 Ml Solution, 30 GM PO QID, #8 Prescribed by: SANJANA DEMARCO on 12/24/16848 Omeprazole 20 Mg Tablet.dr, 20 MG PO BID for 30 Days Prescribed by: SANJANA DEMARCO on 12/24/16848 Potassium Chloride 20 Meq/15 Ml Liquid, 7.5 ML PO DAILY, (Reported) Sucralfate 1 Gm Tablet, 1 GM NG ACHS, #120 Prescribed by: SANJANA DEMARCO on 12/24/1649 Constitutional: see HPI EENTM: no symptoms reported Respiratory: no symptoms reported Cardiovascular: no symptoms reported Gastrointestinal: no symptoms reported Genitourinary: no symptoms reported Musculoskeletal: no symptoms reported Skin: no symptoms reported Psychiatric/Neurological: No Symptoms Reported Past Deqabrn-Ueylac-Bltavr Hx Patient Social History Alcohol Use: Denies Use Recreational Drug Use: No Smoking Status: Never a Smoker Recent Foreign Travel: No Contact w/Someone Who Travel: No Recent Infectious Disease Expo: No Recent Hopitalizations: Yes Physical Abuse: No Sexual Abuse: No Immunizations Up To Date Date of Influenza Vaccine: Sep 27, 2016 Seasonal Allergies Seasonal Allergies: No Surgeries History of Surgeries: No Surgeries: Vasectomy Respiratory History of Respiratory Disorde: No Cardiovascular History of Cardiac Disorders: Yes Cardiac Disorders: Heart Attack, Hypertension Neurological History of Neurological Disord: No Genitourinary History of Genitourinary Disor: No Gastrointestinal History of Gastrointestinal Di: Yes Gastrointestinal Disorders: Gastroesophageal Reflux, Liver Disease/Jaundice, Gastrointestinal Bleed Musculoskeletal History of Musculoskeletal Dis: No Endocrine History of Endocrine Disorders: No HEENT History of HEENT Disorders: No Cancer History of Cancer: No Psychosocial History of Psychiatric Problem: No Suicide Risk Score: 0 Integumentary History of Skin or Integumenta: No Blood Transfusions History of Blood Disorders: No Family Medical History Significant Family History: No Pertinent Family Hx, Diabetes Family Medial History: Patient reports no known family medical history. Physical Exam Vital Signs Vital Sign - Last 12Hours 11/24/17 15:25 Temp 98.9 Pulse 83 Resp 22 B/P (MAP) 127/43 (71) Pulse Ox 95 O2 Delivery Room Air Capillary Refill : Less Than 3 Seconds General Appearance: WD/WN, no apparent distress, other HEENT: normal ENT inspection Neck: full range of motion Cardiovascular: normal peripheral pulses, regular rate, rhythm, no edema, no gallop, no JVD, no murmur Gastrointestinal: normal bowel sounds, non tender, soft, no organomegaly, no pulsatile mass Comments The patient prefers to lie on his right hip. He rolls over with great difficulty. He has bilateral pedal edema to the upper noriega. The skin is alligator like him quite rough. It has a woody texture. There is no evidence of deformity of the right ankle. It is impossible to tell whether there is any rotation of the hip. Progress/Results/Core Measures Results/Orders Lab Results Laboratory Tests Test 11/24/17 15:27 11/24/17 16:23 Range/Units Urine Color PHOEBE H Urine Clarity SLIGHTLY CLOUDY Urine pH 6 5-9 Urine Specific Anchor 1.015 L 1.016-1.022 Urine Protein 3+ H NEGATIVE Urine Glucose (UA) NEGATIVE NEGATIVE Urine Ketones NEGATIVE NEGATIVE Urine Nitrite POSITIVE H NEGATIVE Urine Bilirubin NEGATIVE NEGATIVE Urine Urobilinogen 1 NORMAL MG/DL Urine Leukocyte Esterase 3+ H NEGATIVE Urine RBC (Auto) 5+ H NEGATIVE Urine RBC >100 H /HPF Urine WBC 50-100 H /HPF Urine Crystals NONE /LPF Urine Bacteria FEW H /HPF Urine Casts NONE /LPF Urine Mucus NEGATIVE /LPF Urine Culture Indicated YES White Blood Count 18.4 H 4.3-11.0 10^3/uL Red Blood Count 3.65 L 4.35-5.85 10^6/uL Hemoglobin 11.5 L 13.3-17.7 G/DL Hematocrit 33 L 40-54 % Mean Corpuscular Volume 90 80-99 FL Mean Corpuscular Hemoglobin 32 25-34 PG Mean Corpuscular Hemoglobin Concent 35 32-36 G/DL Red Cell Distribution Width 16.6 H 10.0-14.5 % Platelet Count 80 L 130-400 10^3/uL Mean Platelet Volume 10.8 H 7.4-10.4 FL Neutrophils (%) (Auto) 84 H 42-75 % Lymphocytes (%) (Auto) 5 L 12-44 % Monocytes (%) (Auto) 11 0-12 % Eosinophils (%) (Auto) 0 0-10 % Basophils (%) (Auto) 0 0-10 % Neutrophils # (Auto) 15.5 H 1.8-7.8 X 10^3 Lymphocytes # (Auto) 0.8 L 1.0-4.0 X 10^3 Monocytes # (Auto) 2.0 H 0.0-1.0 X 10^3 Eosinophils # (Auto) 0.0 0.0-0.3 10^3/uL Basophils # (Auto) 0.0 0.0-0.1 10^3/uL Neutrophils % (Manual) 76 % Lymphocytes % (Manual) 3 % Monocytes % (Manual) 5 % Eosinophils % (Manual) 0 % Basophils % (Manual) 0 % Band Neutrophils 16 % Blood Morphology Comment NORMAL Sodium Level 137 135-145 MMOL/L Potassium Level 4.2 3.6-5.0 MMOL/L Chloride Level 106 98-107 MMOL/L Carbon Dioxide Level 21 21-32 MMOL/L Anion Gap 10 5-14 MMOL/L Blood Urea Nitrogen 37 H 7-18 MG/DL Creatinine 1.21 0.60-1.30 MG/DL Estimat Glomerular Filtration Rate 60 BUN/Creatinine Ratio 31 Glucose Level 98 70-105 MG/DL Calcium Level 8.5 8.5-10.1 MG/DL Total Bilirubin 4.3 H 0.1-1.0 MG/DL Aspartate Amino Transf (AST/SGOT) 127 H 5-34 U/L Alanine Aminotransferase (ALT/SGPT) 44 0-55 U/L Alkaline Phosphatase 59 40-136 U/L Total Protein 6.9 6.4-8.2 GM/DL Albumin 2.5 L 3.2-4.5 GM/DL My Orders Orders - STU FIGUEREDO MD Cbc With Automated Diff (11/24/17 16:03) Comprehensive Metabolic Panel (11/24/17 16:03) Ua Culture If Indicated (11/24/17 16:03) Ankle, Right, 3 Views (11/24/17 16:03) Hip, Right, 2 Views (11/24/17 16:03) Manual Differential (11/24/17 16:23) Urine Culture (11/24/17 15:27) Vital Signs/I&O Vital Sign - Last 12Hours 11/24/17 15:25 Temp 98.9 Pulse 83 Resp 22 B/P (MAP) 127/43 (71) Pulse Ox 95 O2 Delivery Room Air Blood Pressure Mean: 71 Departure Communication (Admissions) Progress Notes Single view films are taken of the right hip and ankle. The patient's inability to stand or walk or to participate much in his positioning made this the only option. No fractures are noted as interpreted by me UA shows significant pyuria Impression Impression: Primary Impression: urinary tract infection Additional Impression: right leg pain after reported fall Disposition: 01 HOME, SELF-CARE Condition: Stable/Unchanged Departure-Patient Inst. Referrals: NO,LOCAL PHYSICIAN (PCP) Primary Care Physician Add. Discharge Instructions: All discharge instructions reviewed with patient and/or family. Voiced understanding. Take Omnicef 300 mg twice daily beginning tomorrow. Scripts Cefdinir (Cefdinir) 300 Mg Capsule 300 MG PO twice a day, #14 CAP Prov: STU FIGUEREDO MD 11/24/17 STU FIGUEREDO MD Nov 24, 2017 16:11
[2017-11-24 16:28] LABS: BASOPHILS % (AUTO) 0 % (0-10); EOSINOPHILS % (AUTO) 0 % (0-10); HEMATOCRIT 33 % (40-54); HEMOGLOBIN 11.5 G/DL (13.3-17.7); LYMPHOCYTES # (AUTO) 0.8 X 10^3 (1.0-4.0); LYMPHOCYTES % (AUTO) 5 % (12-44); MEAN CORPUSCULAR HEMOGLOBIN 32 PG (25-34); MEAN CORPUSCULAR HGB CONC 35 G/DL (32-36); MEAN CORPUSCULAR VOLUME 90 FL (80-99); MEAN PLATELET VOLUME 10.8 FL (7.4-10.4); MONOCYTES % (AUTO) 11 % (0-12); NEUTROPHILS # (AUTO) 15.5 X 10^3 (1.8-7.8); NEUTROPHILS % (AUTO) 84 % (42-75); PLATELET COUNT 80 10^3/uL (130-400); RED BLOOD COUNT 3.65 10^6/uL (4.35-5.85); RED CELL DISTRIBUTION WIDTH 16.6 % (10.0-14.5); WHITE BLOOD COUNT 18.4 10^3/uL (4.3-11.0)
[2017-11-24 16:40] LABS: BILIRUBIN,URINE NEGATIVE (NEGATIVE); CLARITY,URINE SLIGHTLY CLOUDY; COLOR,URINE AMBER; GLUCOSE, URINE (UA) NEGATIVE (NEGATIVE); KETONES,URINE NEGATIVE (NEGATIVE); LEUKOCYTE ESTERASE ,URINE 3+ (NEGATIVE); NITRITE,URINE POSITIVE (NEGATIVE); PH,URINE 6 (5-9); PROTEIN,URINE 3+ (NEGATIVE); UROBILINOGEN,URINE 1 MG/DL (NORMAL)
[2017-11-24 16:50] LABS: ALBUMIN 2.5 GM/DL (3.2-4.5); BILIRUBIN,TOTAL 4.3 MG/DL (0.1-1.0); CALCIUM 8.5 MG/DL (8.5-10.1); CREATININE SERUM 1.21 MG/DL (0.60-1.30); POTASSIUM 4.2 MMOL/L (3.6-5.0); TOTAL PROTEIN 6.9 GM/DL (6.4-8.2)
[2017-11-24 16:51] LABS: BACTERIA,URINE FEW /HPF; RBC,URINE >100 /HPF; WBC,URINE 50-100 /HPF
[2017-11-24 16:52] LABS: BAND NEUTROPHILS 16 %; BASOPHILS % (MANUAL) 0 %; EOSINOPHILS % (MANUAL) 0 %; LYMPHOCYTES % (MANUAL) 3 %; MONOCYTES % (MANUAL) 5 %; NEUTROPHILS % (MANUAL) 76 %; RBC MORPH NORMAL
--- NOTE | 2017-11-24 17:04 | Diagnostic Imaging Report ---
INDICATION: Right hip pain FINDINGS: There is advanced degenerative changes of the right hip with complete loss of the superior joint space and erosive deformity of the superior aspect of the femoral head. There is osteophyte formation around the periphery of the articular surface. There is no acute fracture seen. IMPRESSION: Advanced degenerative changes of the right hip. No acute abnormality is seen. Dictated by: Dictated on workstation # [id number]
--- NOTE | 2017-11-24 17:04 | Diagnostic Imaging Report ---
INDICATION: Right ankle injury from a fall. FINDINGS: Three views of the right ankle show no fracture, dislocation or other acute abnormalities. IMPRESSION: Negative right ankle. Dictated by: Dictated on workstation # [id number]
[2017-11-24] MEDS ORDERED: CEFD300C3 PO ×2 (17:08→17:53)
[2017-11-24] MEDS ORDERED: cefTRIAXone INJECTION 1,000 MG in D5W 50 ML IVPB SOLUTION 50 ML IV ONE (17:15)
[2017-11-24 18:20] VITALS: BP 141/67
== END 2017-11-24 18:19 | disposition home or self-care (01) ==
LOC: EDUNIT# 15:22 → ER 15:23
DX: M79.604 Pain in right leg (principal); N39.0 Urinary tract infection, site not specified; I25.2 Old myocardial infarction; I10 Essential (primary) hypertension; K21.9 Gastro-esophageal reflux disease without esophagitis; Z87.19 Personal history of other diseases of the digestive system; Z98.52 Vasectomy status; Z86.73 Personal history of transient ischemic attack (TIA), and cerebral infarction without residual deficits; W19.XXXA Unspecified fall, initial encounter
CPT/HCPCS: 36415; 73502; 73610; 80053; 81000; 85007; 85027; 87077; 87088; 87186

== ENCOUNTER 2018-01-01 14:18 | Inpatient (IN) | payer MEDICARE ==
[~2018-01-01] VITALS: Ht 172.7 cm; Wt 113.4 kg
[~2018-01-01 14:18] MED LIST changes: +CEFD300C3 PO
--- OUTSIDE RECORDS SUMMARY | 2018-01-01 14:24 | XMS REPORT | Continuity of Care Document ---
Author Author [facility] Address Unknown Phone Unavailable Allergies There is no data. Medications There is no data. Problems There is no data. Procedures There is no data. Results There is no data. Encounters ACCT No. Visit Date/Time Discharge Status Pt. Type Provider Facility Loc./Unit Complaint [id number] 11/15/2016 12:42:55 11/15/2016 23:59:[address] [facility] Outpatient MICHELLE YOUNG [id number] 01/25/2014 12:21:33 Document Registration
[2018-01-01] MEDS ORDERED: DEXTROSE 50% 50 ML (IMS) SYR IV ONE (14:30)
[2018-01-01] MEDS ORDERED: NS IV 1000 ML 1,000 ML IV SCH (14:41)
[2018-01-01 14:47] LABS: BASOPHILS # (AUTO) 0.1 10^3/uL (0.0-0.1); BASOPHILS % (AUTO) 0 % (0-10); EOSINOPHILS # (AUTO) 0.2 10^3/uL (0.0-0.3); EOSINOPHILS % (AUTO) 1 % (0-10); HEMATOCRIT 27 % (40-54); LYMPHOCYTES # (AUTO) 1.1 X 10^3 (1.0-4.0); LYMPHOCYTES % (AUTO) 3 % (12-44); MEAN CORPUSCULAR HEMOGLOBIN 32 PG (25-34); MEAN CORPUSCULAR HGB CONC 34 G/DL (32-36); MEAN CORPUSCULAR VOLUME 93 FL (80-99); MEAN PLATELET VOLUME 9.8 FL (7.4-10.4); MONOCYTES # (AUTO) 1.2 X 10^3 (0.0-1.0); MONOCYTES % (AUTO) 4 % (0-12); NEUTROPHILS # (AUTO) 28.8 X 10^3 (1.8-7.8); NEUTROPHILS % (AUTO) 92 % (42-75); PLATELET COUNT 116 10^3/uL (130-400); RED BLOOD COUNT 2.85 10^6/uL (4.35-5.85); RED CELL DISTRIBUTION WIDTH 18.6 % (10.0-14.5)
[2018-01-01 14:52] LABS: WHITE BLOOD COUNT 31.3 10^3/uL (4.3-11.0)
[2018-01-01 15:02] LABS: ANISOCYTOSIS SLIGHT; BAND NEUTROPHILS 24 %; BASOPHILS % (MANUAL) 0 %; EOSINOPHILS % (MANUAL) 0 %; LYMPHOCYTES % (MANUAL) 3 %; MONOCYTES % (MANUAL) 3 %; NEUTROPHILS % (MANUAL) 70 %
[2018-01-01 15:08] LABS: BILIRUBIN,URINE NEGATIVE (NEGATIVE); CLARITY,URINE CLEAR; COLOR,URINE YELLOW; GLUCOSE, URINE (UA) NEGATIVE (NEGATIVE); KETONES,URINE NEGATIVE (NEGATIVE); LEUKOCYTE ESTERASE ,URINE 3+ (NEGATIVE); NITRITE,URINE POSITIVE (NEGATIVE); PH,URINE 5 (5-9); PROTEIN,URINE 1+ (NEGATIVE); UROBILINOGEN,URINE 1 MG/DL (NORMAL)
[2018-01-01 15:11] LABS: BACTERIA,URINE MODERATE /HPF; WBC,URINE >100 /HPF
[2018-01-01 15:13] LABS: ALBUMIN 1.7 GM/DL (3.2-4.5); BILIRUBIN,TOTAL 3.3 MG/DL (0.1-1.0); CALCIUM 7.7 MG/DL (8.5-10.1); CREATININE SERUM 3.28 MG/DL (0.60-1.30); MAGNESIUM 1.6 MG/DL (1.8-2.4); POTASSIUM 4.8 MMOL/L (3.6-5.0); TOTAL PROTEIN 6.6 GM/DL (6.4-8.2)
--- NOTE | 2018-01-01 15:21 | Diagnostic Imaging Report ---
PATIENT HISTORY: Altered mental status. TECHNIQUE: Single frontal view of the chest. COMPARISON: 12/19/2016. FINDINGS: Lung volumes are low. No focal consolidation is seen. No pleural effusion or pneumothorax is identified. There is mild cardiomegaly with mild central vascular congestion. Haziness over the lung bases is thought to be due to overlying soft tissues. There is aortic atherosclerosis. No acute osseous abnormality is seen. IMPRESSION: Mild cardiomegaly with mild central vascular congestion. Dictated by: Dictated on workstation # [id number]
[2018-01-01] MEDS ORDERED: cefTRIAXone INJECTION 1,000 MG in NS (IVPB) 100 ML IV ONE (15:30)
[2018-01-01] MEDS ORDERED: NS IV 1000 ML 1,000 ML IV ONE (15:45)
--- NOTE | 2018-01-01 15:52 | ED General ---
General Chief Complaint: Altered Mental Status Stated Complaint: AMS Nursing Triage Note: ARRIVED VIA AMBULANCE FROM [facility]. EMS REPORTS STAFF STATES HE HAS BECAME MORE ALTERED IN THE LAST COUPLE OF DAYS ET THEY NOTICED SWELLING TO RIGHT SIDE OF FACE AND HOARSENESS STARTING TODAY. PT CONFUSED ET ALERT TO NAME AND BIRTHDAY. EMS REPORTS A BLOOD SUGAR OF 60 Nursing Sepsis Screen: No Definite Risk Source of Information: Patient, EMS, [facility] Records Exam Limitations: No Limitations History of Present Illness Date Seen by Provider: Jan 01, 2018 Time Seen by Provider: 14:25 Initial Comments This 67 year old gentleman presents to the emergency room from the nursing ( [facility]). He has had altered mental status. Fingerstick blood sugar on arrival was 60. Patient was given a dose of D50 and mental status promptly improved. Patient is very dry. halfway is also concerned about swelling on the right side of his face and hoarse voice. Patient appears to have parotitis and was screened for influenza. He is afebrile and vital signs are normal. Patient also has liver failure and is on lactulose and diuretics. Allergies and Home Medications Allergies Coded Allergies: NKANo Known Allergies (Unverified Allergy, Mild, 05/22/09) Home Medications Carvedilol 6.25 Mg Tablet, 6.25 MG PO BID, (Reported) Cefdinir 300 Mg Capsule, 300 MG PO twice a day Begin tomorrow at 1700 hours Prescribed by: STU FIGUEREDO on 11/24/17 1753 Furosemide 10 Mg/Ml Soln, 2 ML PO DAILY, (Reported) Lactulose 20 Gm/30 Ml Solution, 30 GM PO QID Prescribed by: SANJANA DEMARCO on 12/24/16848 Omeprazole 20 Mg Tablet.dr, 20 MG PO BID Prescribed by: SANJANA DEMARCO on 12/24/16848 Potassium Chloride 20 Meq/15 Ml Liquid, 7.5 ML PO DAILY, (Reported) Sucralfate 1 Gm Tablet, 1 GM NG ACHS Prescribed by: SANJANA DEMARCO on 12/24/16848 Patient Home Medication List Home Medication List Reviewed: Yes Constitutional: no symptoms reported EENTM: see HPI Respiratory: no symptoms reported Cardiovascular: no symptoms reported Gastrointestinal: no symptoms reported Genitourinary: no symptoms reported Musculoskeletal: muscle pain Skin: no symptoms reported Psychiatric/Neurological: See HPI Hematologic/Lymphatic: No Symptoms Reported Past [id number] Hx Patient Social History Recent Foreign Travel: No Contact w/Someone Who Travel: No Recent Infectious Disease Expo: No Recent Hopitalizations: Yes Immunizations Up To Date Date of Influenza Vaccine: Sep 27, 2016 Seasonal Allergies Seasonal Allergies: No Surgeries History of Surgeries: Yes Surgeries: Vasectomy Respiratory History of Respiratory Disorde: No Cardiovascular History of Cardiac Disorders: Yes Cardiac Disorders: Heart Attack, Hypertension Neurological History of Neurological Disord: No Genitourinary History of Genitourinary Disor: No Gastrointestinal History of Gastrointestinal Di: Yes Gastrointestinal Disorders: Gastroesophageal Reflux, Liver Disease/Jaundice, Gastrointestinal Bleed Musculoskeletal History of Musculoskeletal Dis: No Endocrine History of Endocrine Disorders: No HEENT History of HEENT Disorders: No Cancer History of Cancer: No Psychosocial History of Psychiatric Problem: No Integumentary History of Skin or Integumenta: No Blood Transfusions History of Blood Disorders: No Family Medical History Significant Family History: No Pertinent Family Hx, Diabetes Family Medial History: Patient reports no known family medical history. Physical Exam Vital Signs Vital Signs - First Documented 01/01/18 01/01/18 14:18 16:32 Temp 98.1 Pulse 81 Resp 18 B/P (MAP) 114/70 (85) Pulse Ox 96 O2 Delivery Room Air Capillary Refill : Less Than 3 Seconds General Appearance: No Apparent Distress, WD/WN, Obese HEENT: PERRL/EOMI, Other (Oropharynx extremely dry. 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 Norm as Tested, Other (Mentation sluggish and dull until blood sugar corrected) Skin: Normal Color, Warm/Dry, Other (Skin dry and cracking) Focused Exam Evaluation Lactate Level Laboratory Tests 01/01/18 15:50: Lactic Acid Level 4.14*H 01/01/18 18:10: Lactic Acid Level 3.09*H Lactic Acid Level Laboratory Tests Test 01/01/18 15:50 01/01/18 18:10 Lactic Acid Level 4.14 MMOL/L (0.50-2.00) *H 3.09 MMOL/L (0.50-2.00) *H Progress/Results/Core Measures Suspected Sepsis Recent Fever Within 48 Hours: No Infection Criteria Present: Suspected New Infection New/Unexplained Altered Menta: No Sepsis Screen: No Definite Risk Sepsis Diagnosis: SIRS Temperature:98.1 Pulse: 81 Respiratory Rate: 18 Laboratory Tests 01/01/18 13:47: White Blood Count 31.3*H Blood Pressure 114 /70 Mean: 85 Laboratory Tests 01/01/18 15:50: Lactic Acid Level 4.14*H 01/01/18 18:10: Lactic Acid Level 3.09*H Laboratory Tests 01/01/18 13:47: Creatinine 3.28H, Platelet Count 116L, Total Bilirubin 3.3H Results/Orders Lab Results Laboratory Tests Test 01/01/18 13:47 01/01/18 14:36 01/01/18 14:53 01/01/18 15:25 Range/Units White Blood Count 31.3 *H 4.3-11.0 10^3/uL Red Blood Count 2.85 L 4.35-5.85 10^6/uL Hemoglobin 9.0 L 13.3-17.7 G/DL Hematocrit 27 L 40-54 % Mean Corpuscular Volume 93 80-99 FL Mean Corpuscular Hemoglobin 32 25-34 PG Mean Corpuscular Hemoglobin Concent 34 32-36 G/DL Red Cell Distribution Width 18.6 H 10.0-14.5 % Platelet Count 116 L 130-400 10^3/uL Mean Platelet Volume 9.8 7.4-10.4 FL Neutrophils (%) (Auto) 92 H 42-75 % Lymphocytes (%) (Auto) 3 L 12-44 % Monocytes (%) (Auto) 4 0-12 % Eosinophils (%) (Auto) 1 0-10 % Basophils (%) (Auto) 0 0-10 % Neutrophils # (Auto) 28.8 H 1.8-7.8 X 10^3 Lymphocytes # (Auto) 1.1 1.0-4.0 X 10^3 Monocytes # (Auto) 1.2 H 0.0-1.0 X 10^3 Eosinophils # (Auto) 0.2 0.0-0.3 10^3/uL Basophils # (Auto) 0.1 0.0-0.1 10^3/uL Neutrophils % (Manual) 70 % Lymphocytes % (Manual) 3 % Monocytes % (Manual) 3 % Eosinophils % (Manual) 0 % Basophils % (Manual) 0 % Band Neutrophils 24 % Anisocytosis SLIGHT Sodium Level 135 135-145 MMOL/L Potassium Level 4.8 3.6-5.0 MMOL/L Chloride Level 105 98-107 MMOL/L Carbon Dioxide Level 21 21-32 MMOL/L Anion Gap 9 5-14 MMOL/L Blood Urea Nitrogen 71 H 7-18 MG/DL Creatinine 3.28 H 0.60-1.30 MG/DL Estimat Glomerular Filtration Rate 19 BUN/Creatinine Ratio 22 Glucose Level 45 *L 70-105 MG/DL Calcium Level 7.7 L 8.5-10.1 MG/DL Magnesium Level 1.6 L 1.8-2.4 MG/DL Total Bilirubin 3.3 H 0.1-1.0 MG/DL Aspartate Amino Transf (AST/SGOT) 36 H 5-34 U/L Alanine Aminotransferase (ALT/SGPT) 25 0-55 U/L Alkaline Phosphatase 84 40-136 U/L Ammonia 60 H 11-32 UMOL/L C-Reactive Protein High Sensitivity 18.27 H 0.00-0.50 MG/DL Total Protein 6.6 6.4-8.2 GM/DL Albumin 1.7 L 3.2-4.5 GM/DL Glucometer 47 *L 89 70-110 MG/DL Urine Color YELLOW Urine Clarity CLEAR Urine pH 5 5-9 Urine Specific [place] 1.010 L 1.016-1.022 Urine Protein 1+ H NEGATIVE Urine Glucose (UA) NEGATIVE NEGATIVE Urine Ketones NEGATIVE NEGATIVE Urine Nitrite POSITIVE H NEGATIVE Urine Bilirubin NEGATIVE NEGATIVE Urine Urobilinogen 1 NORMAL MG/DL Urine Leukocyte Esterase 3+ H NEGATIVE Urine RBC (Auto) 5+ H NEGATIVE Urine RBC 10-25 H /HPF Urine WBC >100 H /HPF Urine Crystals NONE /LPF Urine Bacteria MODERATE H /HPF Urine Casts PRESENT /LPF Urine Hyaline Casts 2-5 H /LPF Urine Mucus NEGATIVE /LPF Urine Culture Indicated YES Test 01/01/18 15:50 01/01/18 18:10 Range/Units Lactic Acid Level 4.14 *H 3.09 *H 0.50-2.00 MMOL/L Micro Results Microbiology 01/01/18 Influenza Types A,B Antigen (DANE) - Final, Complete My Orders Orders - HANNAH ROMAN MD Ammonia (01/01/18 14:41) Cbc With Automated Diff (01/01/18 14:41) Comprehensive Metabolic Panel (01/01/18 14:41) Hs C Reactive Protein (01/01/18 14:41) Magnesium (01/01/18 14:41) Ua Culture If Indicated (01/01/18 14:41) Influenza A And B Antigens (01/01/18 14:41) Saline Lock/Iv-Start (01/01/18 14:41) Ns Iv 1000 Ml (Sodium Chloride 0.9%) (01/01/18 14:41) Chest 1 View, Ap/Pa Only (01/01/18 14:41) Accucheck Stat ONCE (01/01/18 14:45) Manual Differential (01/01/18 13:47) Urine Culture (01/01/18 14:53) Lactic Acid Analyzer (01/01/18 15:17) Blood Culture (01/01/18 15:17) Ceftriaxone Injection (Rocephin Injectio (01/01/18 15:30) Ns Iv 1000 Ml (Sodium Chloride 0.9%) (01/01/18 15:45) Oseltamivir Oral Suspension (Tamiflu Ora (01/01/18 21:00) Medications Given in ED Current Medications Medications Dose Ordered Sig/Jennifer Route Start Time Stop Time Status Last Admin Dose Admin Ceftriaxone Sodium 1000 mg/ Sodium Chloride 100 ml @ 200 mls/hr ONCE ONCE IV 01/01/18 15:30 01/01/18 15:59 DC 01/01/18 16:13 200 MLS/HR Dextrose 25 ml ONCE ONCE IV 01/01/18 14:30 01/01/18 14:31 DC 01/01/18 14:41 50 ML Sodium Chloride 1,000 ml @ 500 mls/hr Q2H ONCE IV 01/01/18 15:45 01/01/18 17:28 DC 01/01/18 15:49 500 MLS/HR Vital Signs/I&O Vital Sign - Last 12Hours 01/01/18 01/01/18 01/01/18 14:18 16:30 16:32 Temp 98.1 98.5 Pulse 81 90 89 Resp 18 18 18 B/P (MAP) 114/70 (85) 136/89 102/79 (87) Pulse Ox 96 96 94 O2 Delivery Room Air Capillary Refill : Less Than 3 Seconds Blood Pressure Mean: 85 Point of Care Testing Finger Stick Blood Glucose: 89 Blood Glucose Action Taken: DR NOTIFIED Progress Note : Progress Note Patient was found to be in significant renal failure. IV fluids were started in the emergency room with a 1 L normal saline bolus. Dr. Castillo requested fluids be continued at 500 mL per hour 2 L and then 175 mL per hour after that. Patient was found to have urinary tract infection and was given Rocephin after drawing blood cultures and lactic acid. Patient appeared to have peritonitis of the right face. Influenza screening was performed and patient was found to have influenza B which is the likely cause of his peritonitis. Patient's hypoglycemia was corrected with D50. His mental status improved significantly after that. Diagnostic Imaging Diagonstic Imaging: Xray Plain Films/CT/US/NM/MRI: chest Comments Chest x-ray viewed by me and report reviewed. See report below: NAME: BRIONNA BUENO [facility] REC#: [id number] PT STATUS: REG ER : 1950 PHYSICIAN: HANNAH ROMAN MD ADMIT DATE: 01/01/18/ER Signed Date of Exam: 01/01/18 CHEST 1 VIEW, AP/PA ONLY PATIENT HISTORY: Altered mental status. TECHNIQUE: Single frontal view of the chest. COMPARISON: 12/19/2016. FINDINGS: Lung volumes are low. No focal consolidation is seen. No pleural effusion or pneumothorax is identified. There is mild cardiomegaly with mild central vascular congestion. Haziness over the lung bases is thought to be due to overlying soft tissues. There is aortic atherosclerosis. No acute osseous abnormality is seen. IMPRESSION: Mild cardiomegaly with mild central vascular congestion. Dictated by: Dictated on workstation # [id number] Dict: 01/01/18 1518 Trans: 01/01/18 1521 Interpreted by: CRYSTAL WOODS MD Electronically signed by: CRYSTAL WOODS MD 01/01/18 1521 Departure Communication (Admissions) Time/Spoke to Admitting Phy: 15:[address] Karen Castillo Impression Impression: Primary Impression: Acute renal failure Qualified Codes: N17.9 - Acute kidney failure, unspecified Additional Impressions: Urinary tract infection Qualified Codes: N39.0 - Urinary tract infection, site not specified Influenza B Altered mental status Qualified Codes: R41.82 - Altered mental status, unspecified Hypoglycemia Parotitis Hyperammonemia Disposition: ADMITTED INPATIENT Condition: Improved Admissions Decision to Admit Reason: Admit from ER (General) Decision to Admit/Date: Jan 01, 2018 Time/Decision to Admit Time: 15:00 Departure-Patient Inst. Referrals: GAGANDEEP BOYD MD (PCP/Family) Primary Care Physician HANNAH ROMAN MD Jan 01, 2018 15:52
[2018-01-01 16:32] VITALS: BP 102/79
[2018-01-01] MEDS ORDERED: ONDANSETRON 4 MG/2 ML (SDV) Z0FRAN IV PRN (17:30)
[2018-01-01] MEDS ORDERED: CATHETER FLUSH 10 ML SYR IV PRN (17:30)
[2018-01-01] MEDS ORDERED: OSELTAMIVIR 6 MG/ML (TAMIFLU) 60 ML BOT PO SCH ×2 (18:00→21:00)
[2018-01-01] MEDS: NS IV 1000 ML 1,000 ML IV SCH ×2 (18:34→21:21)
[2018-01-01 19:45] VITALS: BP_SYST 101; BP_DIAS 69; BP_DIAS 9
[2018-01-02] VITALS: BP 135/59
[2018-01-02] MEDS: NS IV 1000 ML 1,000 ML IV SCH ×6 (03:30→22:21)
[2018-01-02 04:25] VITALS: BP 138/62
[2018-01-02 06:02] LABS: BASOPHILS % (AUTO) 0 % (0-10); EOSINOPHILS # (AUTO) 0.1 10^3/uL (0.0-0.3); EOSINOPHILS % (AUTO) 0 % (0-10); HEMATOCRIT 25 % (40-54); HEMOGLOBIN 8.3 G/DL (13.3-17.7); LYMPHOCYTES # (AUTO) 0.9 X 10^3 (1.0-4.0); LYMPHOCYTES % (AUTO) 4 % (12-44); MEAN CORPUSCULAR HEMOGLOBIN 32 PG (25-34); MEAN CORPUSCULAR HGB CONC 34 G/DL (32-36); MEAN CORPUSCULAR VOLUME 94 FL (80-99); MEAN PLATELET VOLUME 10.3 FL (7.4-10.4); MONOCYTES # (AUTO) 0.8 X 10^3 (0.0-1.0); MONOCYTES % (AUTO) 4 % (0-12); NEUTROPHILS # (AUTO) 20.6 X 10^3 (1.8-7.8); NEUTROPHILS % (AUTO) 92 % (42-75); PLATELET COUNT 85 10^3/uL (130-400); RED BLOOD COUNT 2.63 10^6/uL (4.35-5.85); RED CELL DISTRIBUTION WIDTH 18.8 % (10.0-14.5); WHITE BLOOD COUNT 22.4 10^3/uL (4.3-11.0)
[2018-01-02 06:18] LABS: ALBUMIN 1.4 GM/DL (3.2-4.5); BILIRUBIN,TOTAL 2.9 MG/DL (0.1-1.0); CREATININE SERUM 2.89 MG/DL (0.60-1.30); POTASSIUM 4.4 MMOL/L (3.6-5.0); TOTAL PROTEIN 5.7 GM/DL (6.4-8.2)
[2018-01-02 08:00] VITALS: BP 114/52
[2018-01-02] MEDS ORDERED: PANT40TA2 PO (08:33)
[2018-01-02] MEDS ORDERED: ONDN4T PO (08:33)
[2018-01-02] MEDS ORDERED: SUCR1TAB36 PO (08:33)
[2018-01-02] MEDS ORDERED: CARV6.252 PO (08:33)
[2018-01-02] MEDS ORDERED: SPIR50TA PO (08:33)
[2018-01-02] MEDS ORDERED: HYDR-87 PO (08:33)
[2018-01-02] MEDS ORDERED: ESCI20TA PO (08:33)
[2018-01-02] MEDS ORDERED: LACT20SO2 PO ×2 (08:33)
[2018-01-02] MEDS ORDERED: FURO40TA4 PO (08:33)
[2018-01-02] MEDS ORDERED: VITS42.53 TP (08:33)
[2018-01-02] MEDS ORDERED: POTA10TA10 PO (08:33)
[2018-01-02] MEDS ORDERED: cefTRIAXone 1 GM/NS 100 ML IVPB IV SCH ×2 (09:00)
[2018-01-02] MEDS: cefTRIAXone 2 GM/NS 100 ML IVPB IV SCH ×2 (09:05)
[2018-01-02] MEDS: OSELTAMIVIR 6 MG/ML (TAMIFLU) 60 ML BOT PO SCH ×2 (09:05→20:16)
[2018-01-02 12:00] VITALS: BP 102/45
[2018-01-02] MEDS ORDERED: ONDANSETRON 4 MG (ZOFRAN) ORAL DISSOLVE TAB PO PRN (12:30)
--- NOTE | 2018-01-02 12:31 | History & Physicial (CHS) ---
HPI History of Present Illness: 67yo gentleman with history of cirrhosis of unknown etiology, diabetes type 2, and morbid obesity presented to ER from the care home due to swelling in his right side of his face and mental status changes. In ER, patient was found to be hypoglycemic, and his mental status improved significantly with administration of D50. Patient was also found to have a UTI which was contributing to the low BS and mental status changes. Of note, patient is on exterminator helper treatment for the ESLD including diuretics and lactulose. Also, patient has a long history of non-compliance and not wanting to be in hospital. He has refused procedures and treatments in the past. He was initially admitted to [facility] but then required a hospitalization, and the FL in [facility] wouldn't take him back, so he is now at [facility]. Today, patient tells me that his sister in law is there. Patient's main concern today is that he wants to go baack to the [place]. Source: patient Exam Limitations: clinical condition Date seen by provider: Jan 02, 2018 Time Seen by Provider: 09:00 Attending Physician Pedro Levi MD PCP Pedro Levi MD Consult Date of Admission Jan 01, 2018 at 3:51 pm Home Medications Home Medications Reviewed patient Home Medication Reconciliation Form Allergies Coded Allergies: NKANo Known Allergies (Unverified Allergy, Mild, 05/22/09) [id number] Hx Patient Social History Alcohol Use: Denies Use Recreational Drug Use: No Smoking Status: Never a Smoker Recent Foreign Travel: No Contact w/other who traveled: No Recent Hopitalizations: Yes Recent Infectious Disease Expo: No Physical Abuse Screen: No Sexual Abuse: No Immunizations Up To Date Date of Pneumonia Vaccine: Feb 06, 2017 Date of Influenza Vaccine: Aug 20, 2017 Family Medical History Significant Family History: No Pertinent Family Hx, Diabetes Family History: Patient reports no known family medical history. Review of Systems (CHC) Constitutional: no symptoms reported All Other Systems Reviewed Negative Unless Noted: Yes (Negative excepted noted.) Reviewed Test Results Reviewed Test Results Lab Laboratory Tests Test 01/01/18 13:47 01/01/18 14:36 01/01/18 14:53 01/01/18 15:25 Range/Units White Blood Count 31.3 *H 4.3-11.0 10^3/uL Red Blood Count 2.85 L 4.35-5.85 10^6/uL Hemoglobin 9.0 L 13.3-17.7 G/DL Hematocrit 27 L 40-54 % Mean Corpuscular Volume 93 80-99 FL Mean Corpuscular Hemoglobin 32 25-34 PG Mean Corpuscular Hemoglobin Concent 34 32-36 G/DL Red Cell Distribution Width 18.6 H 10.0-14.5 % Platelet Count 116 L 130-400 10^3/uL Mean Platelet Volume 9.8 7.4-10.4 FL Neutrophils (%) (Auto) 92 H 42-75 % Lymphocytes (%) (Auto) 3 L 12-44 % Monocytes (%) (Auto) 4 0-12 % Eosinophils (%) (Auto) 1 0-10 % Basophils (%) (Auto) 0 0-10 % Neutrophils # (Auto) 28.8 H 1.8-7.8 X 10^3 Lymphocytes # (Auto) 1.1 1.0-4.0 X 10^3 Monocytes # (Auto) 1.2 H 0.0-1.0 X 10^3 Eosinophils # (Auto) 0.2 0.0-0.3 10^3/uL Basophils # (Auto) 0.1 0.0-0.1 10^3/uL Neutrophils % (Manual) 70 % Lymphocytes % (Manual) 3 % Monocytes % (Manual) 3 % Eosinophils % (Manual) 0 % Basophils % (Manual) 0 % Band Neutrophils 24 % Anisocytosis SLIGHT Sodium Level 135 135-145 MMOL/L Potassium Level 4.8 3.6-5.0 MMOL/L Chloride Level 105 98-107 MMOL/L Carbon Dioxide Level 21 21-32 MMOL/L Anion Gap 9 5-14 MMOL/L Blood Urea Nitrogen 71 H 7-18 MG/DL Creatinine 3.28 H 0.60-1.30 MG/DL Estimat Glomerular Filtration Rate 19 BUN/Creatinine Ratio 22 Glucose Level 45 *L 70-105 MG/DL Calcium Level 7.7 L 8.5-10.1 MG/DL Magnesium Level 1.6 L 1.8-2.4 MG/DL Total Bilirubin 3.3 H 0.1-1.0 MG/DL Aspartate Amino Transf (AST/SGOT) 36 H 5-34 U/L Alanine Aminotransferase (ALT/SGPT) 25 0-55 U/L Alkaline Phosphatase 84 40-136 U/L Ammonia 60 H 11-32 UMOL/L C-Reactive Protein High Sensitivity 18.27 H 0.00-0.50 MG/DL Total Protein 6.6 6.4-8.2 GM/DL Albumin 1.7 L 3.2-4.5 GM/DL Glucometer 47 *L 89 70-110 MG/DL Urine Color YELLOW Urine Clarity CLEAR Urine pH 5 5-9 Urine Specific [place] 1.010 L 1.016-1.022 Urine Protein 1+ H NEGATIVE Urine Glucose (UA) NEGATIVE NEGATIVE Urine Ketones NEGATIVE NEGATIVE Urine Nitrite POSITIVE H NEGATIVE Urine Bilirubin NEGATIVE NEGATIVE Urine Urobilinogen 1 NORMAL MG/DL Urine Leukocyte Esterase 3+ H NEGATIVE Urine RBC (Auto) 5+ H NEGATIVE Urine RBC 10-25 H /HPF Urine WBC >100 H /HPF Urine Crystals NONE /LPF Urine Bacteria MODERATE H /HPF Urine Casts PRESENT /LPF Urine Hyaline Casts 2-5 H /LPF Urine Mucus NEGATIVE /LPF Urine Culture Indicated YES Test 01/01/18 15:50 01/01/18 18:10 01/02/18 02:06 01/02/18 05:43 Range/Units Lactic Acid Level 4.14 *H 3.09 *H 3.09 *H 0.50-2.00 MMOL/L Glucometer 83 70-110 MG/DL White Blood Count 22.4 H 4.3-11.0 10^3/uL Red Blood Count 2.63 L 4.35-5.85 10^6/uL Hemoglobin 8.3 L 13.3-17.7 G/DL Hematocrit 25 L 40-54 % Mean Corpuscular Volume 94 80-99 FL Mean Corpuscular Hemoglobin 32 25-34 PG Mean Corpuscular Hemoglobin Concent 34 32-36 G/DL Red Cell Distribution Width 18.8 H 10.0-14.5 % Platelet Count 85 L 130-400 10^3/uL Mean Platelet Volume 10.3 7.4-10.4 FL Neutrophils (%) (Auto) 92 H 42-75 % Lymphocytes (%) (Auto) 4 L 12-44 % Monocytes (%) (Auto) 4 0-12 % Eosinophils (%) (Auto) 0 0-10 % Basophils (%) (Auto) 0 0-10 % Neutrophils # (Auto) 20.6 H 1.8-7.8 X 10^3 Lymphocytes # (Auto) 0.9 L 1.0-4.0 X 10^3 Monocytes # (Auto) 0.8 0.0-1.0 X 10^3 Eosinophils # (Auto) 0.1 0.0-0.3 10^3/uL Basophils # (Auto) 0.0 0.0-0.1 10^3/uL Sodium Level 137 135-145 MMOL/L Potassium Level 4.4 3.6-5.0 MMOL/L Chloride Level 108 H 98-107 MMOL/L Carbon Dioxide Level 17 L 21-32 MMOL/L Anion Gap 12 5-14 MMOL/L Blood Urea Nitrogen 68 H 7-18 MG/DL Creatinine 2.89 H 0.60-1.30 MG/DL Estimat Glomerular Filtration Rate 22 BUN/Creatinine Ratio 24 Glucose Level 71 70-105 MG/DL Calcium Level 7.0 L 8.5-10.1 MG/DL Total Bilirubin 2.9 H 0.1-1.0 MG/DL Aspartate Amino Transf (AST/SGOT) 32 5-34 U/L Alanine Aminotransferase (ALT/SGPT) 19 0-55 U/L Alkaline Phosphatase 73 40-136 U/L Ammonia 46 H 11-32 UMOL/L Total Protein 5.7 L 6.4-8.2 GM/DL Albumin 1.4 L 3.2-4.5 GM/DL Test 01/02/18 08:27 Range/Units Lactic Acid Level 3.01 *H 0.50-2.00 MMOL/L Physical Exam-(CHC) Physical Exam Vital Signs VS - Last 72 Hours, by Label 01/01/18 01/01/18 01/01/18 01/01/18 14:18 16:30 16:32 17:20 Temp 98.1 98.5 Pulse 81 90 89 Resp 18 18 18 B/P (MAP) 114/70 (85) 136/89 102/79 (87) Pulse Ox 96 96 94 O2 Delivery Room Air Room Air 01/01/18 01/01/18 01/02/18 01/02/18 19:45 20:30 00:00 04:25 Temp 97.8 98.6 97.2 Pulse 92 59 81 Resp 18 22 22 B/P (MAP) 101/9 (39) 135/59 (84) 138/62 (87) Pulse Ox 94 95 96 O2 Delivery Room Air Room Air Room Air Room Air 01/02/18 01/02/18 08:00 09:00 Temp 97.4 Pulse 82 Resp 22 B/P (MAP) 114/52 (72) Pulse Ox 96 O2 Delivery Room Air Room Air Capillary Refill : Less Than 3 Seconds General Appearance: WD/WN, no apparent distress HEENT: PERRL/EOMI, normal ENT inspection, pharynx normal, scleral icterus (L), pale conjunctivae (R), pale conjunctivae (L) Neck: non-tender, full range of motion, supple, normal inspection Respiratory: lungs clear, normal breath sounds, no respiratory distress, no accessory muscle use Cardiovascular: regular rate, rhythm, no edema, no gallop, no JVD, no murmur Gastrointestinal: normal bowel sounds, non tender, no organomegaly Extremities: normal range of motion, non-tender, normal inspection, no pedal edema, no calf tenderness, normal capillary refill Neurologic/Psychiatric: vp corporate partnerships II-XII nml as tested, no motor/sensory deficits, alert, normal mood/affect, oriented x 3 Skin: warm/dry, jaundice Assessment/Plan Assessment/Plan Admission Dx SEVERE SEPSIS URINARY TRACT INFECTION BACTEREMIA LACTIC ACIDOSIS SECONDARY TO OVER-DIURESIS ACUTE KIDNEY INJURY SECONDARY TO SEVERE DEHYDRATION END STAGE LIVER DISEASE, UNKNOWN ETIOLOGY PANCYTOPENIA RELATED TO ESLD JAUNDICE RELATED TO ESLD HEPATIC ENCEPHALOPATHY UNCONTROLLED TYPE 2 DM Admission Status: Inpatient Order (span 2 midnights) Reason for Inpatient Admission: PATIENT IS SEVERELY ILL WITH MULTIPLE ORGAN SYSTEM INVOLVEMENT, REQUIRING AGGRESSIVE IV FLUIDS, ANTIBIOTICS, LABS TO ENSURE NO FURTHER METABOLIC DERANGEMENTS. Assessment & Plan SEVERE SEPSIS URINARY TRACT INFECTION BACTEREMIA LACTIC ACIDOSIS SECONDARY TO OVER-DIURESIS ACUTE KIDNEY INJURY SECONDARY TO SEVERE DEHYDRATION END STAGE LIVER DISEASE, UNKNOWN ETIOLOGY PANCYTOPENIA RELATED TO ESLD JAUNDICE RELATED TO ESLD HEPATIC ENCEPHALOPATHY UNCONTROLLED TYPE 2 DM Admission: Spoke at lenght with the patient today, who did appear to understand what I was saying. Discussed that his situation is very dire. We can certainly try to treat the severe sepsis with antibiotics (MSSA last time, so covering for that at present). I am currently giving very aggressive fluids in light of the renal injury; however, I do not believe he is going to tolerate faster fluids than what I am currently giving him due to the ESLD. For this reason, it is going to take quite a bit longer to see the lactic acidosis resolve. I spoke with Lee about the fact that it is going to be very difficult to balance the liver and kidneys as he likely has an element of hepatorenal syndrome underlying all of this, including the over-diuresis. It is impossible to know whether the infection came first or the overdiuresis preceded infection. Lee continued to tell me that he "wants to go home." However, there is a concern that his hepatic encephalopathy is affecting his judgement, so we are goign to talk with his POA. WE will continue aggressive measures until we hear otherwise from the family. Even with aggressive measures , he has a very poor prognosis. DVT PROPH: SCDs, no chemoprophyaxis due to pancytopenia GI PROPH: Home regimen Clinical Quality Measures DVT/VTE Risk/Contraindication: Risk Factor Score Per Nursin RFS Level Per Nursing on Admit: 4+=Very High Copy Copies To 1: SIVA BRENNAN APRN, MD Jan 02, 2018 12:31 pm
[2018-01-02] MEDS: SUCRALFATE 1 GM (CARAFATE) TAB PO SCH ×2 (15:56→20:15)
[2018-01-02] MEDS: A & D OINT 60 GM TUBE TP SCH ×2 (15:56→20:16)
[2018-01-02 16:19] VITALS: BP 102/45
--- NOTE | 2018-01-02 16:45 | Occupational Therapy Eval ---
OT Evaluation-General/PLF Medical Diagnosis Admission Date Jan 01, 2018 at 15:51 Medical Diagnosis: sepsis, influenza B, AMS, liver failure Onset Date: Jan 01, 2018 Therapy Diagnosis Therapy Diagnosis: decr self care, decr funct use L UE Height/Weight Height (Feet): 5 Height (Inches): 8.00 Weight (Pounds): 250 Weight (Ounces): 0.0 Precautions Precautions/Isolations: Droplet Isolation, Fall Prevention Safety Interventions: Bed Exit Alarm, Reorient-PRN Referral Physician: Jonathan Referral Reason: Evaluation/Treatment Medical History Pertinent Medical History: CAD, DM, GERD, HTN, [place] Additional Medical History Liver disease/jaundice. GI bleed. Morbid obesity. Current History Also has acute renal failure, UTI, parotitis, hepatic encephalopathy Reviewed History: Yes Social History Home: [facility] ([facility]) ADL-Prior Level of Function ADL PLOF Comments Staff at [facility] reported that, until a few weeks ago, he was able to feed himself with setup. He could take himself to the bathroom although he was occasionally incontinent. He needed help with lower body dressing due to edema but could do most of his upper body dressing. He did require more help with transfers recently and moved from needing "extensive assist" to using a lift. OT Current Status Subjective Pt seen in room, up in bed, agreeable to OT. Unable to give pain rating but did wince with discomfort which he said came from his R thigh. Pt was hard to understand Appearance Alert, cooperative. Knew name and Mental Status/Objective Attachments: IV Current Hand Dominance: Right Upper Extremity ROM Grossly WFL except L shoulder limited to approx 90 degrees flex/abd. Limited finger flex L hand Upper Extremity Strength Grossly 4/5 bilat except decreased turbogenerator operator. Edema: L hand was edematous. Pt said that he was right handed but used L hand for washing face ADL-Treatment ADL-Current Pt was able to wash face with both hands with incoordination and difficulty holding onto washcloth. Decreased turbogenerator operator L hand due to edema. He was able to hold water mug and glass with setup but not reach for it himself. Nursing reported he is total care for toileting and is incontinent. it takes three people to position him in bed. Functional [place] Measure 0=Not Assessed/NA 4=Minimal Assistance 1=Total Assistance 5=Supervision or Setup 2=Maximal Assistance 6=Modified [place] 3=Moderate Assistance 7=Complete IndependenceIRFPAI Quality Coding Scale 6 Independent with activity with or without an assistive device 5 Patient requires set up or clean up by helper. Patient completes activity by themselves 4 Supervision or touching assist (CGA). [place] provide cues , steadying assist 3 The helper provides less than half the effort to complete the activity 2 The helper provides more than half the effort to complete the activity 1 Dependent. The helper does all the effort to complete an activity 7 Patient refused to complete or attempt activity 9 The patient did not perform the activity before the current illness or injury 88 Not attempted due to Medical conditions or safety concerns Education OT Patient Education: Purpose of tx/functional activities Teaching Recipient: Patient Teaching Methods: Discussion Response to Teaching: Verbalize Understanding OT Short Term Goals Short Term Goals 1=Demonstrate adherence to instructed precautions during ADL tasks. 2=Patient will verbalize/demonstrate understanding of assistive devices/ modifications for ADL. 3=Patient will improve strength/tolerance for activity to enable patient to perform ADL's. OT Long-Term Goals Long-Term Goals Time Frame: Jan 09, 2018 Eating (FIM): 5 Grooming(FIM): 5 decrease edema L hand to help with ADLs Additional Goals: 3-ImproveStrength/Katey 1=Demonstrate adherence to instructed precautions during ADL tasks. 2=Patient will verbalize/demonstrate understanding of assistive devices/ modifications for ADL. 3=Patient will improve strength/tolerance for activity to enable patient to perform ADL's. OT Education/Plan Problem List/Assessment Assessment: Edema, Impaired Self-Care Skills, Restricted Funct UE ROM Pt would benefit from skilled OT to increase his independence in basic self care and to decrease caregiver burden. Discharge Recommendations Plan/Recommendations: Continue POC Treatment Plan/Plan of Care Treatment,Training & Education: Yes Patient would benefit from OT for education, treatment and training to promote independence in ADL's, mobility, safety and/or upper extremity function for ADL' s. Plan of Care: ADL Retraining, UE Neuromus Re-Ed/Coord, OTHER (edema management) Treatment Duration: Jan 09, 2018 Frequency: 5 times per week Estimated Hrs Per Day: .25 hour per day Agreement: Yes Rehab Potential: Guarded (due to health issues) Time/GCodes Start Time: 14:40 Stop Time: 15:00 Total Time Billed (hr/min): 20 Billed Treatment Time visit, 20 minutes evaluation low intensity SHANTEL VERMA OT Jan 02, 2018 16:45
[2018-01-02 19:52] VITALS: BP 116/58
[2018-01-03] VITALS: BP 120/64
[2018-01-03] MEDS: NS IV 1000 ML 1,000 ML IV SCH (03:20)
[2018-01-03] MEDS: SUCRALFATE 1 GM (CARAFATE) TAB PO SCH ×4 (05:44→21:12)
[2018-01-03 06:34] VITALS: BP 115/73
[2018-01-03 08:00] VITALS: BP 161/71
[2018-01-03] MEDS: cefTRIAXone 2 GM/NS 100 ML IVPB IV SCH ×2 (08:17)
[2018-01-03] MEDS: A & D OINT 60 GM TUBE TP SCH ×3 (08:19→21:12)
[2018-01-03] MEDS: PANTOPRAZOLE 40 MG (PROTONIX) TAB PO SCH (08:19)
[2018-01-03] MEDS: OSELTAMIVIR 6 MG/ML (TAMIFLU) 60 ML BOT PO SCH ×2 (08:22→21:17)
[2018-01-03 12:00] VITALS: BP 124/60
[2018-01-03 14:51] LABS: BASOPHILS # (AUTO) 0.1 10^3/uL (0.0-0.1); BASOPHILS % (AUTO) 0 % (0-10); EOSINOPHILS # (AUTO) 0.1 10^3/uL (0.0-0.3); EOSINOPHILS % (AUTO) 1 % (0-10); HEMATOCRIT 25 % (40-54); HEMOGLOBIN 8.6 G/DL (13.3-17.7); LYMPHOCYTES # (AUTO) 1.1 X 10^3 (1.0-4.0); LYMPHOCYTES % (AUTO) 5 % (12-44); MEAN CORPUSCULAR HEMOGLOBIN 32 PG (25-34); MEAN CORPUSCULAR HGB CONC 34 G/DL (32-36); MEAN CORPUSCULAR VOLUME 94 FL (80-99); MONOCYTES # (AUTO) 0.9 X 10^3 (0.0-1.0); MONOCYTES % (AUTO) 4 % (0-12); NEUTROPHILS # (AUTO) 20.1 X 10^3 (1.8-7.8); NEUTROPHILS % (AUTO) 90 % (42-75); PLATELET COUNT 86 10^3/uL (130-400); RED BLOOD COUNT 2.67 10^6/uL (4.35-5.85); RED CELL DISTRIBUTION WIDTH 19.2 % (10.0-14.5); WHITE BLOOD COUNT 22.3 10^3/uL (4.3-11.0)
[2018-01-03 15:08] LABS: ALBUMIN 1.5 GM/DL (3.2-4.5); CALCIUM 7.3 MG/DL (8.5-10.1); CREATININE SERUM 2.71 MG/DL (0.60-1.30); POTASSIUM 3.8 MMOL/L (3.6-5.0); TOTAL PROTEIN 6.1 GM/DL (6.4-8.2)
[2018-01-03 15:10] LABS: ANISOCYTOSIS MODERATE; BAND NEUTROPHILS 0 %; BASOPHILS % (MANUAL) 0 %; EOSINOPHILS % (MANUAL) 0 %; LYMPHOCYTES % (MANUAL) 3 %; MONOCYTES % (MANUAL) 2 %; NEUTROPHILS % (MANUAL) 95 %
--- NOTE | 2018-01-03 15:13 | Occupational Ther Daily Note ---
OT Current Status-Daily Note Subjective Pt seen in room, up in bed, agreeable to OT. No pain mentioned Mental Status/Objective Functional [place] Measure 0=Not Assessed/NA 4=Minimal Assistance 1=Total Assistance 5=Supervision or Setup 2=Maximal Assistance 6=Modified [place] 3=Moderate Assistance 7=Complete [place] ADL-Treatment Pt was able to get a drink from glass with lid with min assist, using R hand. He is not able to reach for drink and needs help placing cup. Cont on liquid diet. Edema in L hand appears to be going down. He was able to minimally squeeze foam hand alodize machine operator and had about half active movement to make a partial fist on L. Pt keeps L hand elevated on chest but attempted to use it to get a drink. pt left up in bed, all needs met. Education OT Patient Education: Exercise program, Modified ADL techniques, Purpose of tx/ functional activities Teaching Recipient: Patient Teaching Methods: Demonstration Response to Teaching: Reinforcement Needed OT Short Term Goals Short Term Goals 1=Demonstrate adherence to instructed precautions during ADL tasks. 2=Patient will verbalize/demonstrate understanding of assistive devices/ modifications for ADL. 3=Patient will improve strength/tolerance for activity to enable patient to perform ADL's. OT Paramedic Supervisor Goals Paramedic Supervisor Goals Time Frame: Jan 09, 2018 Eating (FIM): 5 Grooming(FIM): 5 decrease edema L hand to help with ADLs Additional Goals: 3-ImproveStrength/Katey 1=Demonstrate adherence to instructed precautions during ADL tasks. 2=Patient will verbalize/demonstrate understanding of assistive devices/ modifications for ADL. 3=Patient will improve strength/tolerance for activity to enable patient to perform ADL's. OT Education/Plan Problem List/Assessment Pt would benefit from skilled OT to increase his independence in basic self care and to decrease caregiver burden. Discharge Recommendations Plan/Recommendations: Continue POC Treatment Plan/Plan of Care Patient would benefit from OT for education, treatment and training to promote independence in ADL's, mobility, safety and/or upper extremity function for ADL' s. Plan of Care: ADL Retraining, UE Neuromus Re-Ed/Coord, OTHER (edema management) Treatment Duration: Jan 09, 2018 Frequency: 5 times per week Estimated Hrs Per Day: .25 hour per day Agreement: Yes Rehab Potential: Guarded (due to health issues) Time/GCodes Start Time: 14:45 Stop Time: 15:00 Total Time Billed (hr/min): 15 Billed Treatment Time visit, 15 minutes functional activity SHANTEL VERMA OT Jan 03, 2018 15:13
[2018-01-03 16:04] VITALS: BP 130/65
[2018-01-03 19:58] VITALS: BP 145/68
[2018-01-04] VITALS (7 sets, daily range): BP systolic 106–168; BP diastolic 55–102
[2018-01-04 05:15] LABS: BASOPHILS % (AUTO) 0 % (0-10); EOSINOPHILS # (AUTO) 0.2 10^3/uL (0.0-0.3); EOSINOPHILS % (AUTO) 1 % (0-10); HEMATOCRIT 24 % (40-54); LYMPHOCYTES # (AUTO) 1.2 X 10^3 (1.0-4.0); LYMPHOCYTES % (AUTO) 6 % (12-44); MEAN CORPUSCULAR HEMOGLOBIN 32 PG (25-34); MEAN CORPUSCULAR HGB CONC 34 G/DL (32-36); MEAN CORPUSCULAR VOLUME 94 FL (80-99); MEAN PLATELET VOLUME 9.8 FL (7.4-10.4); MONOCYTES # (AUTO) 1.1 X 10^3 (0.0-1.0); MONOCYTES % (AUTO) 5 % (0-12); NEUTROPHILS # (AUTO) 18.9 X 10^3 (1.8-7.8); NEUTROPHILS % (AUTO) 88 % (42-75); PLATELET COUNT 81 10^3/uL (130-400); RED BLOOD COUNT 2.52 10^6/uL (4.35-5.85); RED CELL DISTRIBUTION WIDTH 19.2 % (10.0-14.5); WHITE BLOOD COUNT 21.4 10^3/uL (4.3-11.0)
[2018-01-04 05:33] LABS: ALBUMIN 1.4 GM/DL (3.2-4.5); BILIRUBIN,TOTAL 3.3 MG/DL (0.1-1.0); CALCIUM 7.4 MG/DL (8.5-10.1); CREATININE SERUM 2.62 MG/DL (0.60-1.30); POTASSIUM 3.8 MMOL/L (3.6-5.0); TOTAL PROTEIN 6.1 GM/DL (6.4-8.2)
[2018-01-04] MEDS: SUCRALFATE 1 GM (CARAFATE) TAB PO SCH ×4 (06:38→21:45)
--- NOTE | 2018-01-04 08:11 | Progress Note (SOAP) ---
Subjective Subjective/Events-last exam Patient is still somewhat confused today and is telling me that he is having trouble breathing. Review of Systems Date Seen by Provider: Jan 03, 2018 Time Seen by Provider: 09:00 Pulmonary: No Dyspnea Cardiovascular: No: Chest Pain Objective Exam Last Set of Vital Signs Vital Signs Date Time Temp Pulse Resp B/P (MAP) Pulse Ox O2 Delivery O2 Flow Rate FiO2 01/04/18 00:00 98.0 109 24 114/57 (76) 94 Room Air Capillary Refill : Less Than 3 Seconds I&O Intake and Output 01/04/18 00:00 Intake Total 712 ml Output Total 650 ml Balance 62 ml Intake Oral 712 ml Output Urine Total 650 ml # Voids 7 # Bowel Movements 2 General: Alert, Oriented X3, Cooperative, Mild Distress Lungs: Other (decreased BS in the bases, increased effort) Heart: Regular Rate, Normal S1, Normal S2, No Murmurs, Gallops, Rubs Abdomen: Normal Bowel Sounds, Soft, No Tenderness, No Hepatosplenomegaly, No Masses, Other (increased abd girth) Extremities: Other (2+ edema) Results/Procedures Lab Laboratory Tests 01/03/18 14:43: White Blood Count 22.3H, Red Blood Count 2.67L, Hemoglobin 8.6L, Hematocrit 25L , Mean Corpuscular Volume 94, Mean Corpuscular Hemoglobin 32, Mean Corpuscular Hemoglobin Concent 34, Red Cell Distribution Width 19.2H, Platelet Count 86L, Mean Platelet Volume 10.0, Neutrophils (%) (Auto) 90H, Lymphocytes (%) (Auto) 5L , Monocytes (%) (Auto) 4, Eosinophils (%) (Auto) 1, Basophils (%) (Auto) 0, Neutrophils # (Auto) 20.1H, Lymphocytes # (Auto) 1.1, Monocytes # (Auto) 0.9, Eosinophils # (Auto) 0.1, Basophils # (Auto) 0.1, Neutrophils % (Manual) 95, Lymphocytes % (Manual) 3, Monocytes % (Manual) 2, Eosinophils % (Manual) 0, Basophils % (Manual) 0, Band Neutrophils 0, Anisocytosis MODERATE, Sodium Level 138, Potassium Level 3.8, Chloride Level 112H, Carbon Dioxide Level 21, Anion Gap 5, Blood Urea Nitrogen 69H, Creatinine 2.71H, Estimat Glomerular Filtration Rate 24, BUN/Creatinine Ratio 25, Glucose Level 87, Calcium Level 7.3L, Total Bilirubin 3.0H, Direct Bilirubin 2.0H, Indirect Bilirubin 1.0, Aspartate Amino Transf (AST/SGOT) 33, Alanine Aminotransferase (ALT/SGPT) 23, Alkaline Phosphatase 86, Ammonia 42H, Total Protein 6.1L, Albumin 1.5L 01/04/18 04:47: White Blood Count 21.4H, Red Blood Count 2.52L, Hemoglobin 8.0L, Hematocrit 24L , Mean Corpuscular Volume 94, Mean Corpuscular Hemoglobin 32, Mean Corpuscular Hemoglobin Concent 34, Red Cell Distribution Width 19.2H, Platelet Count 81L, Mean Platelet Volume 9.8, Neutrophils (%) (Auto) 88H, Lymphocytes (%) (Auto) 6L , Monocytes (%) (Auto) 5, Eosinophils (%) (Auto) 1, Basophils (%) (Auto) 0, Neutrophils # (Auto) 18.9H, Lymphocytes # (Auto) 1.2, Monocytes # (Auto) 1.1H, Eosinophils # (Auto) 0.2, Basophils # (Auto) 0.0, Sodium Level 140, Potassium Level 3.8, Chloride Level 113H, Carbon Dioxide Level 15L, Anion Gap 12, Blood Urea Nitrogen 71H, Creatinine 2.62H, Estimat Glomerular Filtration Rate 25, BUN/ Creatinine Ratio 27, Glucose Level 67L, Calcium Level 7.4L, Total Bilirubin 3.3H , Aspartate Amino Transf (AST/SGOT) 38H, Alanine Aminotransferase (ALT/SGPT) 20 , Alkaline Phosphatase 98, Total Protein 6.1L, Albumin 1.4L Microbiology 01/01/18 Blood Culture - Preliminary, Resulted Staphylococcus aureus See Comments 01/01/18 Influenza Types A,B Antigen (DANE) - Final, Complete 01/01/18 Urine Culture - Final, Complete Staphylococcus aureus Assessment/Plan Assessment/Plan Assessment & Plan SEVERE SEPSIS URINARY TRACT INFECTION - MSSA BACTEREMIA INFLUENZA B LACTIC ACIDOSIS SECONDARY TO OVER-DIURESIS ACUTE KIDNEY INJURY SECONDARY TO SEVERE DEHYDRATION END STAGE LIVER DISEASE, UNKNOWN ETIOLOGY PANCYTOPENIA RELATED TO ESLD JAUNDICE RELATED TO ESLD HEPATIC ENCEPHALOPATHY HEPATORENAL SYNDROME UNCONTROLLED TYPE 2 DM Admission: Spoke at lenght with the patient today, who did appear to understand what I was saying. Discussed that his situation is very dire. We can certainly try to treat the severe sepsis with antibiotics (MSSA last time, so covering for that at present). I am currently giving very aggressive fluids in light of the renal injury; however, I do not believe he is going to tolerate faster fluids than what I am currently giving him due to the ESLD. For this reason, it is going to take quite a bit longer to see the lactic acidosis resolve. I spoke with Lee about the fact that it is going to be very difficult to balance the liver and kidneys as he likely has an element of hepatorenal syndrome underlying all of this, including the over-diuresis. It is impossible to know whether the infection came first or the overdiuresis preceded infection. Lee continued to tell me that he "wants to go home." However, there is a concern that his hepatic encephalopathy is affecting his judgement, so we are goign to talk with his POA. WE will continue aggressive measures until we hear otherwise from the family. Even with aggressive measures , he has a very poor prognosis. 12/31: We have given him fluids at 175ml/h for the past 24h knowing he would not tolerate the fluid boluses. Still, as expected, he is now edematous without much improvement in his creatinine. His WBC continue to be very high. I have called his POA, Pepito Jeong, who states that they will be coming as a family on Saturday. We are to continue aggressive measures until that time as they decide they want hospice. I would advise that we continue cautious fluid balances, prn lactulose enemas, etc until Saturday. We will continue antibiotics - day 2 today. DVT PROPH: SCDs, no chemoprophyaxis due to pancytopenia GI PROPH: Home regimen Clinical Quality Measures DVT/VTE Risk/Contraindication: Risk Factor Score Per Nursin RFS Level Per Nursing on Admit: 4+=Very High SIVA PERRIN MD Jan 04, 2018 8:11 am
[2018-01-04] MEDS: cefTRIAXone 2 GM/NS 100 ML IVPB IV SCH ×2 (08:34)
[2018-01-04] MEDS: OSELTAMIVIR 6 MG/ML (TAMIFLU) 60 ML BOT PO SCH (08:34)
[2018-01-04] MEDS: PANTOPRAZOLE 40 MG (PROTONIX) TAB PO SCH (08:34)
[2018-01-04] MEDS: A & D OINT 60 GM TUBE TP SCH ×2 (08:35→13:29)
--- NOTE | 2018-01-04 12:54 | Progress Note (SOAP) ---
Subjective Subjective/Events-last exam Patient is sitting up in bed and watching TV, awake and alert, although somewhat difficult to understand his speech. He reports he is feeling much better today than yesterday. States he has some abdominal discomfort, but it's not that bad. No acute events overnight. No concerns from nursing staff. Review of Systems Date Seen by Provider: Jan 04, 2018 Time Seen by Provider: 11:51 General: No Chills, No Fatigue, No Malaise HEENT: No Head Aches, No Eye Pain Pulmonary: No Dyspnea, No Pleuritic Chest Pain Cardiovascular: Edema, No: Chest Pain, Palpitations Gastrointestinal: Abdominal Pain, No: Nausea, Vomiting Genitourinary: No Dysuria Neurological: No: Seizures Objective Exam Last Set of Vital Signs Vital Signs Date Time Temp Pulse Resp B/P (MAP) Pulse Ox O2 Delivery O2 Flow Rate FiO2 01/04/18 08:00 91 Room Air 01/04/18 08:00 97.2 85 22 127/75 (92) Capillary Refill : Less Than 3 Seconds I&O Intake and Output 01/04/18 00:00 Intake Total 712 ml Output Total 650 ml Balance 62 ml Intake Oral 712 ml Output Urine Total 650 ml # Voids 7 # Bowel Movements 2 General: Alert, Oriented X3, Cooperative, No Acute Distress HEENT: Atraumatic, EOMI, Mucous Memb Moist/[place] Neck: Supple, No Thyromegaly Lungs: Clear to Auscultation, Other (mildly diminished in bases) Heart: Regular Rate, Normal S1, Normal S2 Abdomen: Normal Bowel Sounds, Soft, Other (mild tenderness to palpation in RUQ ) Extremities: No Clubbing, No Cyanosis, Other (2+ pitting edema) Skin: No Rashes, No Significant Lesion, Other (very yellow in appearance) Neuro: Normal Tone, Sensation Intact, Cranial Nerves 3-12 NL Psych/Mental Status: Mental Status NL, Mood NL Results/Procedures Lab Laboratory Tests 01/03/18 14:43: White Blood Count 22.3H, Red Blood Count 2.67L, Hemoglobin 8.6L, Hematocrit 25L , Mean Corpuscular Volume 94, Mean Corpuscular Hemoglobin 32, Mean Corpuscular Hemoglobin Concent 34, Red Cell Distribution Width 19.2H, Platelet Count 86L, Mean Platelet Volume 10.0, Neutrophils (%) (Auto) 90H, Lymphocytes (%) (Auto) 5L , Monocytes (%) (Auto) 4, Eosinophils (%) (Auto) 1, Basophils (%) (Auto) 0, Neutrophils # (Auto) 20.1H, Lymphocytes # (Auto) 1.1, Monocytes # (Auto) 0.9, Eosinophils # (Auto) 0.1, Basophils # (Auto) 0.1, Neutrophils % (Manual) 95, Lymphocytes % (Manual) 3, Monocytes % (Manual) 2, Eosinophils % (Manual) 0, Basophils % (Manual) 0, Band Neutrophils 0, Anisocytosis MODERATE, Sodium Level 138, Potassium Level 3.8, Chloride Level 112H, Carbon Dioxide Level 21, Anion Gap 5, Blood Urea Nitrogen 69H, Creatinine 2.71H, Estimat Glomerular Filtration Rate 24, BUN/Creatinine Ratio 25, Glucose Level 87, Calcium Level 7.3L, Total Bilirubin 3.0H, Direct Bilirubin 2.0H, Indirect Bilirubin 1.0, Aspartate Amino Transf (AST/SGOT) 33, Alanine Aminotransferase (ALT/SGPT) 23, Alkaline Phosphatase 86, Ammonia 42H, Total Protein 6.1L, Albumin 1.5L 01/04/18 04:47: White Blood Count 21.4H, Red Blood Count 2.52L, Hemoglobin 8.0L, Hematocrit 24L , Mean Corpuscular Volume 94, Mean Corpuscular Hemoglobin 32, Mean Corpuscular Hemoglobin Concent 34, Red Cell Distribution Width 19.2H, Platelet Count 81L, Mean Platelet Volume 9.8, Neutrophils (%) (Auto) 88H, Lymphocytes (%) (Auto) 6L , Monocytes (%) (Auto) 5, Eosinophils (%) (Auto) 1, Basophils (%) (Auto) 0, Neutrophils # (Auto) 18.9H, Lymphocytes # (Auto) 1.2, Monocytes # (Auto) 1.1H, Eosinophils # (Auto) 0.2, Basophils # (Auto) 0.0, Sodium Level 140, Potassium Level 3.8, Chloride Level 113H, Carbon Dioxide Level 15L, Anion Gap 12, Blood Urea Nitrogen 71H, Creatinine 2.62H, Estimat Glomerular Filtration Rate 25, BUN/ Creatinine Ratio 27, Glucose Level 67L, Calcium Level 7.4L, Total Bilirubin 3.3H , Aspartate Amino Transf (AST/SGOT) 38H, Alanine Aminotransferase (ALT/SGPT) 20 , Alkaline Phosphatase 98, Total Protein 6.1L, Albumin 1.4L Microbiology 01/01/18 Blood Culture - Preliminary, Resulted Staphylococcus aureus See Comments 01/01/18 Influenza Types A,B Antigen (DANE) - Final, Complete 01/01/18 Urine Culture - Final, Complete Staphylococcus aureus Assessment/Plan Assessment/Plan Admission Dx SEVERE SEPSIS URINARY TRACT INFECTION - MSSA BACTEREMIA INFLUENZA B LACTIC ACIDOSIS SECONDARY TO OVER-DIURESIS ACUTE KIDNEY INJURY SECONDARY TO SEVERE DEHYDRATION END STAGE LIVER DISEASE, UNKNOWN ETIOLOGY PANCYTOPENIA RELATED TO ESLD JAUNDICE RELATED TO ESLD HEPATIC ENCEPHALOPATHY HEPATORENAL SYNDROME UNCONTROLLED TYPE 2 DM Admission Status: Inpatient Order (span 2 midnights) Assessment & Plan SEVERE SEPSIS URINARY TRACT INFECTION - MSSA BACTEREMIA INFLUENZA B LACTIC ACIDOSIS SECONDARY TO OVER-DIURESIS ACUTE KIDNEY INJURY SECONDARY TO SEVERE DEHYDRATION END STAGE LIVER DISEASE, UNKNOWN ETIOLOGY PANCYTOPENIA RELATED TO ESLD JAUNDICE RELATED TO ESLD HEPATIC ENCEPHALOPATHY HEPATORENAL SYNDROME UNCONTROLLED TYPE 2 DM Admission: Spoke at lenght with the patient today, who did appear to understand what I was saying. Discussed that his situation is very dire. We can certainly try to treat the severe sepsis with antibiotics (MSSA last time, so covering for that at present). I am currently giving very aggressive fluids in light of the renal injury; however, I do not believe he is going to tolerate faster fluids than what I am currently giving him due to the ESLD. For this reason, it is going to take quite a bit longer to see the lactic acidosis resolve. I spoke with Lee about the fact that it is going to be very difficult to balance the liver and kidneys as he likely has an element of hepatorenal syndrome underlying all of this, including the over-diuresis. It is impossible to know whether the infection came first or the overdiuresis preceded infection. Lee continued to tell me that he "wants to go home." However, there is a concern that his hepatic encephalopathy is affecting his judgement, so we are goign to talk with his POA. WE will continue aggressive measures until we hear otherwise from the family. Even with aggressive measures , he has a very poor prognosis. 12/31: We have given him fluids at 175ml/h for the past 24h knowing he would not tolerate the fluid boluses. Still, as expected, he is now edematous without much improvement in his creatinine. His WBC continue to be very high. I have called his POA, Pepito Jeong, who states that they will be coming as a family on Saturday. We are to continue aggressive measures until that time as they decide they want hospice. I would advise that we continue cautious fluid balances, prn lactulose enemas, etc until Saturday. We will continue antibiotics - day 2 today. 01/04 -WBC remains elevated but trending down -Cr remains elevated, but also trending down -AST with mild elevation today -patient alert and oriented, which appears to be his stated baseline per chart review -UTI --> Rocephin Day 3 -Influenza B --> Tamiflu Day 3 -continue with current plan to attempt to medically stabilize and manage patient until his son arrives on Saturday -patient does remain at high risk for decompensation due to his multiple, very serious medical issues, as outlined above DVT PROPH: SCDs, no chemoprophyaxis due to pancytopenia GI PROPH: Home regimen Code status: FULL CODE Condition: Fair Prognosis: Poor Clinical Quality Measures DVT/VTE Risk/Contraindication: Risk Factor Score Per Nursin RFS Level Per Nursing on Admit: 4+=Very High RAVEN SAMS DO Jan 04, 2018 12:54
--- NOTE | 2018-01-04 21:24 | Diagnostic Imaging Report ---
INDICATION: Post code, intubated, tube placement. COMPARISON STUDY: Chest from 3 days ago. FINDINGS: Portable supine view of the chest demonstrates an endotracheal tube and orogastric tube in place. The tip of the orogastric tube is not included and could be in the distal stomach or into the duodenum. Cardiomegaly is again identified. The vascularity is normal. Some infiltrates are seen adjacent to the left side of the mediastinum. IMPRESSION: 1. The endotracheal tube is in good position 2. Tip of the orogastric tube is not visualized. 3. Cardiomegaly. 4. Some infiltrates or contusions are seen in the left-sided chest adjacent to the mediastinum. Dictated by: Dictated on workstation # [id number]
[2018-01-04] MEDS ORDERED: LORazepam INJ 2 MG/ML (ATIVAN) VIAL ONE (21:38)
[2018-01-04] MEDS ORDERED: LORazepam INJ 2 MG/ML (ATIVAN) VIAL IVP ONE (21:45)
[2018-01-04] MEDS ORDERED: DILTIAZEM 25 MG/5 ML INJ (CARDIZEM) VIAL ONE (21:47)
[2018-01-04] MEDS ORDERED: DILTIAZEM 125 MG/25 ML IV (CARDIZEM) IV ONE (21:47)
[2018-01-04] MEDS ORDERED: D5W 100 ML IVPB 100 ML IV ONE (21:48)
[2018-01-04] MEDS: DILTIAZEM INJECTION 125 MG in NS (IVPB) 100 ML IV SCH ×2 (21:58→22:00)
[2018-01-04 22:00] LABS: EOSINOPHILS # (AUTO) 0.3 10^3/uL (0.0-0.3); EOSINOPHILS % (AUTO) 1 % (0-10); HEMATOCRIT 29 % (40-54); HEMOGLOBIN 9.5 G/DL (13.3-17.7); LYMPHOCYTES # (AUTO) 7.8 X 10^3 (1.0-4.0); LYMPHOCYTES % (AUTO) 22 % (12-44); MEAN CORPUSCULAR HEMOGLOBIN 33 PG (25-34); MEAN CORPUSCULAR HGB CONC 33 G/DL (32-36); MEAN CORPUSCULAR VOLUME 99 FL (80-99); MEAN PLATELET VOLUME 10.4 FL (7.4-10.4); MONOCYTES % (AUTO) 6 % (0-12); PLATELET COUNT 108 10^3/uL (130-400); RED CELL DISTRIBUTION WIDTH 19.8 % (10.0-14.5)
[2018-01-04] MEDS ORDERED: DILTIAZEM 25 MG/5 ML INJ (CARDIZEM) VIAL IVP ONE (22:00)
[2018-01-04 22:09] LABS: WHITE BLOOD COUNT 35.3 10^3/uL (4.3-11.0)
[2018-01-04 22:11] LABS: ALBUMIN 1.5 GM/DL (3.2-4.5); BILIRUBIN,TOTAL 3.4 MG/DL (0.1-1.0); CALCIUM 7.6 MG/DL (8.5-10.1); CREATININE SERUM 2.7 MG/DL (0.60-1.30); MAGNESIUM 1.9 MG/DL (1.8-2.4); POTASSIUM 4.4 MMOL/L (3.6-5.0); TOTAL PROTEIN 6.7 GM/DL (6.4-8.2)
[2018-01-04 22:13] LABS: BASOPHILS # (AUTO) 0.7 10^3/uL (0.0-0.1); BASOPHILS % (AUTO) 1 % (0-10); NEUTROPHILS # (AUTO) 24.4 X 10^3 (1.8-7.8); NEUTROPHILS % (AUTO) 69 % (42-75)
[2018-01-04] MEDS ORDERED: NS IV 1000 ML 1,000 ML IV SCH (22:15)
[2018-01-05] VITALS: BP 127/83
[2018-01-05] MEDS ORDERED: LACTATED RINGERS 1,000 ML IV ONE (00:33)
[2018-01-05] MEDS ORDERED: LORazepam INJ 2 MG/ML (ATIVAN) VIAL ONE (00:34)
[2018-01-05] MEDS: OSELTAMIVIR 6 MG/ML (TAMIFLU) 60 ML BOT PO SCH (00:44)
[2018-01-05] MEDS: A & D OINT 60 GM TUBE TP SCH (00:45)
[2018-01-05 00:59] VITALS: BP 104/50
[2018-01-05 01:00] VITALS: BP 100/49
[2018-01-05 01:15] VITALS: BP 87/52
[2018-01-05] MEDS ORDERED: LORazepam INJ 2 MG/ML (ATIVAN) VIAL IV PRN (01:15)
[2018-01-05] MEDS ORDERED: LACTATED RINGERS 1,000 ML IV SCH (01:15)
[2018-01-05] MEDS ORDERED: ARTIFICAL TEARS 0.4 ML UNIT DOSE (REFRESH PLUS) OU PRN (01:45)
[2018-01-05] MEDS ORDERED: GLYCOPYRROLATE 0.2 MG/ML (ROBINUL) 2 ML VIAL IV PRN (01:45)
[2018-01-05] MEDS ORDERED: SALIVA STIMULANT MOUTH SPRAY (BIOTENE) 1.5 OZ MM PRN (01:45)
[2018-01-05] MEDS ORDERED: SCOPOLAMINE 1.5 MG (TRANSDERM-SCOP) PATCH TOP SCH (01:45)
[2018-01-05] MEDS ORDERED: morphine INJ 4 MG/ML 1 ML (VIAL/SYRINGE) IV PRN ×2 (01:45→10:15)
[2018-01-05] MEDS ORDERED: ACETAMINOPHEN 650 MG SUPP (TYLENOL) PR PRN (01:45)
[2018-01-05] MEDS ORDERED: PROMETHAZINE INJ 25 MG/ML (PHENERGAN) AMP IVP PRN (01:45)
[2018-01-05] MEDS ORDERED: ONDANSETRON 4 MG/2 ML (SDV) Z0FRAN IVP PRN (01:45)
[2018-01-05] MEDS ORDERED: ARTIFICIAL TEARS OINT (LACRI-LUBE) 3.5 GM TUBE OU PRN (01:45)
[2018-01-05] MEDS ORDERED: BISACODYL 10 MG SUPP (DULCOLAX) PR PRN (01:45)
[2018-01-05] MEDS ORDERED: RT-ALBUTEROL/IPRATROPIUM 3 ML (DUONEB) VIAL INH PRN (01:45)
[2018-01-05] MEDS ORDERED: ATROPINE 1% OPHTHALMIC SOLN 2 ML SL PRN (01:45)
[2018-01-05] MEDS: LORazepam INJ 2 MG/ML (ATIVAN) VIAL IVP PRN ×4 (03:58→14:52)
[2018-01-05] MEDS ORDERED: KCL 20 MEQ TAB (K-DUR) PO SCH (06:00)
[2018-01-05] MEDS ORDERED: POTASSIUM CL 10MEQ/50ML IVPB 50 ML IV SCH (06:00)
[2018-01-05] MEDS ORDERED: inSUlin (REGULAR) HUMAN 1 UNIT/0.01 ML (CHARGE PER UNIT) SC SCH (06:00)
[2018-01-05] MEDS ORDERED: MAGNESIUM 1 GM/100 ML IVPB 100 ML IV SCH (06:00)
--- NOTE | 2018-01-05 06:10 | Procedure/Intervention Note ---
Procedure Note Preoperative Date of Service: Jan 04, 2018 Time of Procedure: 20:30 Vital Signs Date Time Temp Pulse Resp B/P (MAP) Pulse Ox O2 Delivery O2 Flow Rate FiO2 01/05/18 01:30 88 20 Mechanical Ventilator 50.00 01/05/18 01:15 94 01/05/18 00:59 100 01/05/18 00:51 96.1 Indication Cardiopulmonary arrest Risk/Time Out Cardiopulmonary arrest necessitated emergency consent. Nursing was attempting to contact family. Prep/Sedation Sedation: succinylcholine 130 mg, etomidate 30 mg Procedure-General Patient was experiencing cardiopulmonary arrest after a couple rounds of CPR and one dose of epinephrine we had spontaneous return of circulation. The patient is oxygenating in the low 80s. History of influenza. We used succinylcholine and etomidate to rapid sequence intubate the patient with a 7.5 ET tube. For arrived respirator therapy had tried twice to intubate unsuccessfully. Using a 3 River laryngoscope view of the lower half of the vocal cords was obtained and the ET tube was passed easily and in the obturator was withdrawn and end-tidal capnograph paper was placed and bag valve mask ventilated causing colorimetric change. Bilateral symmetric lung sounds are heard and no air movement over the epigastric region. Patient's sats improved to 100% shortly. Chest x-ray was obtained after an OG was placed by nursing. OG is okay position and chest x-ray demonstrated tip of the ET tube to be in good position. Attempts by this provider 1. ABG was ordered and prevent settings given initially at 15 respiratory rate, I time 1 second, tidal volume 450 mL, by mouth 57 m water pressure, the goal is to keep the peak airway pressure below 30. Patient tolerated procedure well and DIP her van was started for sedation with a RA SS goal of 3. MALLORIE RUEDA Jan 05, 2018 06:10
[2018-01-05] MEDS ORDERED: ETOMIDATE IV SOLN 20 MG/10 ML VIAL IV ONE (06:30)
[2018-01-05] MEDS ORDERED: SUCCINYLCHOLINE INJ 100 MG/5 ML SYR INJ ONE (06:30)
[2018-01-05] MEDS ORDERED: EPINEPHrine INJECTION 1 MG/ML AMP IV ONE (06:30)
[2018-01-05] MEDS ORDERED: NS IV 1000 ML 1,000 ML IV ONE (07:00)
[2018-01-05] MEDS ORDERED: PANTOPRAZOLE 40 MG/10 ML (PROTONIX) VIAL IV SCH (09:00)
--- NOTE | 2018-01-05 10:21 | Progress Note (SOAP) ---
Subjective Subjective/Events-last exam See yesterday's progress note and addendum for events up to ~0100. This morning patient is extubated and appears restless, does not follow any commands. Shallow, somewhat labored breathing. He was extubated and made comfort measures only at the request of his family, including ESTRADAARACELI Jeong ( nephew), sister in law Jen, and the patient's son. Patient's son and his are present this morning and spoke to them at length about events and potential course of patient now that he is on comfort measures only. They deny questions and are comfortable and confident that this is what the patient would have wanted. Review of Systems Date Seen by Provider: Jan 05, 2018 Time Seen by Provider: 09:00 General: Other (withdraws to pain, but otherwise unaware and appears restless) HEENT: Dysphasia Pulmonary: No Cough Cardiovascular: Edema Gastrointestinal: No: Vomiting Genitourinary: Other (indwelling cha) Neurological: Other (restless, unable to follow commands, withdrawal to painful stimuli only, comfort care) Objective Exam Last Set of Vital Signs Vital Signs Date Time Temp Pulse Resp B/P (MAP) Pulse Ox O2 Delivery O2 Flow Rate FiO2 01/05/18 08:00 Mechanical Ventilator 70 01/05/18 01:30 88 20 50.00 01/05/18 01:15 94 01/05/18 00:51 96.1 Capillary Refill : Less Than 3 Seconds I&O Intake and Output 01/05/18 00:00 Intake Total 200 ml Balance 200 ml Intake Oral 200 ml # Voids 3 General: Moderate Distress HEENT: Atraumatic, Mucous Memb Moist/[place], Other (eyes display somewhat intermittent rhythmic nystagmus) Neck: Supple, No Thyromegaly Lungs: Clear to Auscultation, Other (diminished and shallow) Heart: Regular Rate, Normal S1, Normal S2, No Murmurs Abdomen: Soft, No Tenderness, Other (hypoactive bowel sounds) Extremities: Other (significant pitting edema in lower extremities, mild generalized edema) Skin: No Rashes, No Significant Lesion, Other (jaundiced) Neuro: Other (minimal withdrawal to painful stimuli, no purposeful responses, appears restless) Psych/Mental Status: Other (no purposeful responses) Results/Procedures Lab Laboratory Tests 01/04/18 20:50: White Blood Count 35.3*H, Red Blood Count 2.90L, Hemoglobin 9.5L, Hematocrit 29L , Mean Corpuscular Volume 99, Mean Corpuscular Hemoglobin 33, Mean Corpuscular Hemoglobin Concent 33, Red Cell Distribution Width 19.8H, Platelet Count 108L, Mean Platelet Volume 10.4, Neutrophils (%) (Auto) 69, Lymphocytes (%) (Auto) 22 , Monocytes (%) (Auto) 6, Eosinophils (%) (Auto) 1, Basophils (%) (Auto) 1, Neutrophils # (Auto) 24.4H, Lymphocytes # (Auto) 7.8H, Monocytes # (Auto) 2.0H, Eosinophils # (Auto) 0.3, Basophils # (Auto) 0.7H, Sodium Level 138, Potassium Level 4.4, Chloride Level 110H, Carbon Dioxide Level 11L, Anion Gap 17H, Blood Urea Nitrogen 70H, Creatinine 2.70H, Estimat Glomerular Filtration Rate 24, BUN/ Creatinine Ratio 26, Glucose Level 101, Lactic Acid Level 9.99*H, Calcium Level 7.6L, Magnesium Level 1.9, Total Bilirubin 3.4H, Aspartate Amino Transf (AST/ SGOT) 43H, Alanine Aminotransferase (ALT/SGPT) 21, Alkaline Phosphatase 117, Ammonia 65H, Total Protein 6.7, Albumin 1.5L 01/04/18 22:56: Lactic Acid Level 5.81*H Microbiology 01/01/18 Blood Culture - Preliminary, Resulted Staphylococcus aureus See Comments 01/01/18 Influenza Types A,B Antigen (DANE) - Final, Complete 01/01/18 Urine Culture - Final, Complete Staphylococcus aureus Assessment/Plan Assessment/Plan Admission Dx SEVERE SEPSIS URINARY TRACT INFECTION - MSSA BACTEREMIA INFLUENZA B LACTIC ACIDOSIS SECONDARY TO OVER-DIURESIS ACUTE KIDNEY INJURY SECONDARY TO SEVERE DEHYDRATION END STAGE LIVER DISEASE, UNKNOWN ETIOLOGY PANCYTOPENIA RELATED TO ESLD JAUNDICE RELATED TO ESLD HEPATIC ENCEPHALOPATHY HEPATORENAL SYNDROME UNCONTROLLED TYPE 2 DM Admission Status: Inpatient Order (span 2 midnights) Assessment & Plan SEVERE SEPSIS URINARY TRACT INFECTION - MSSA BACTEREMIA INFLUENZA B LACTIC ACIDOSIS SECONDARY TO OVER-DIURESIS ACUTE KIDNEY INJURY SECONDARY TO SEVERE DEHYDRATION END STAGE LIVER DISEASE, UNKNOWN ETIOLOGY PANCYTOPENIA RELATED TO ESLD JAUNDICE RELATED TO ESLD HEPATIC ENCEPHALOPATHY HEPATORENAL SYNDROME UNCONTROLLED TYPE 2 DM Admission: Spoke at lenght with the patient today, who did appear to understand what I was saying. Discussed that his situation is very dire. We can certainly try to treat the severe sepsis with antibiotics (MSSA last time, so covering for that at present). I am currently giving very aggressive fluids in light of the renal injury; however, I do not believe he is going to tolerate faster fluids than what I am currently giving him due to the ESLD. For this reason, it is going to take quite a bit longer to see the lactic acidosis resolve. I spoke with Lee about the fact that it is going to be very difficult to balance the liver and kidneys as he likely has an element of hepatorenal syndrome underlying all of this, including the over-diuresis. It is impossible to know whether the infection came first or the overdiuresis preceded infection. Lee continued to tell me that he "wants to go home." However, there is a concern that his hepatic encephalopathy is affecting his judgement, so we are goign to talk with his POA. WE will continue aggressive measures until we hear otherwise from the family. Even with aggressive measures , he has a very poor prognosis. 12/31: We have given him fluids at 175ml/h for the past 24h knowing he would not tolerate the fluid boluses. Still, as expected, he is now edematous without much improvement in his creatinine. His WBC continue to be very high. I have called his POA, Pepito Jeong, who states that they will be coming as a family on Saturday. We are to continue aggressive measures until that time as they decide they want hospice. I would advise that we continue cautious fluid balances, prn lactulose enemas, etc until Saturday. We will continue antibiotics - day 2 today. 01/04 -WBC remains elevated but trending down -Cr remains elevated, but also trending down -AST with mild elevation today -patient alert and oriented, which appears to be his stated baseline per chart review -UTI --> Rocephin Day 3 -Influenza B --> Tamiflu Day 3 -continue with current plan to attempt to medically stabilize and manage patient until his son arrives on Saturday -patient does remain at high risk for decompensation due to his multiple, very serious medical issues, as outlined above DVT PROPH: SCDs, no chemoprophyaxis due to pancytopenia GI PROPH: Home regimen 01/05 -patient palliatively extubated at request of family, made DNR with comfort measures only -appears restless and uncomfortable this morning, doses of ativan and morphine adjusted for comfort -extensive discussion with son and his about the fact that we cannot say exactly when patient will , but I do expect it to likely be sometime today ; discussed that we have medications available for pain and anxiety, and that if they feel patient appears uncomfortable then they should ask for patient to be given more medication, as our goal is to make the patient as comfortable as possible. -all orders not related to comfort measures stopped, patient may move to the floor if appropriate in terms of staffing and bed availability -expect the patient will likely within the next 12 hours, however we will continue to keep him as comfortable as possible as long as is needed CODE STATUS: DO NOT RESUSCITATE. COMFORT MEASURES ONLY. Code status: FULL CODE Condition: Fair Prognosis: Poor Clinical Quality Measures DVT/VTE Risk/Contraindication: Risk Factor Score Per Nursin RFS Level Per Nursing on Admit: 4+=Very High RAVEN SAMS DO Jan 05, 2018 10:20
[2018-01-05] MEDS: morphine INJ 10 MG/ML 1ML (SYR OR VIAL) IV PRN (14:53)
[2018-01-06] MEDS: morphine INJ 10 MG/ML 1ML (SYR OR VIAL) IV PRN ×3 (05:37→17:08)
[2018-01-06] MEDS: LORazepam INJ 2 MG/ML (ATIVAN) VIAL IVP PRN ×2 (05:39→09:17)
--- NOTE | 2018-01-06 11:55 | Progress Note (SOAP) ---
Subjective Subjective/Events-last exam Patient resting comfortably. Unresponsive. Son in room this AM. Review of Systems Date Seen by Provider: Jan 06, 2018 Time Seen by Provider: 09:56 Patient Unresponsive no ROS Objective Exam Last Set of Vital Signs Vital Signs Date Time Temp Pulse Resp B/P (MAP) Pulse Ox O2 Delivery O2 Flow Rate FiO2 01/06/18 08:18 Room Air 01/05/18 08:00 70 01/05/18 01:30 88 20 50.00 01/05/18 01:15 94 01/05/18 00:51 96.1 Capillary Refill : Less Than 3 Seconds I&O Intake and Output 01/06/18 00:00 Intake Total 1935 ml Output Total 250 ml Balance 1685 ml Intake Oral 0 ml IV Total 1935 ml Output Urine Total 250 ml General: Other (Unresponsive, comfortable) Heart: Other (Bradycardic) Skin: Other (Mottling skin on feet) Results/Procedures Lab Microbiology 01/01/18 Blood Culture - Final, Complete Staphylococcus aureus See Comments 01/04/18 Gram Stain - Final, Complete 01/04/18 Sputum Culture - Final, Complete Staphylococcus aureus 01/01/18 Urine Culture - Final, Complete Staphylococcus aureus Assessment/Plan Assessment/Plan Assessment & Plan SEVERE SEPSIS URINARY TRACT INFECTION - MSSA BACTEREMIA INFLUENZA B LACTIC ACIDOSIS SECONDARY TO OVER-DIURESIS ACUTE KIDNEY INJURY SECONDARY TO SEVERE DEHYDRATION END STAGE LIVER DISEASE, UNKNOWN ETIOLOGY PANCYTOPENIA RELATED TO ESLD JAUNDICE RELATED TO ESLD HEPATIC ENCEPHALOPATHY HEPATORENAL SYNDROME UNCONTROLLED TYPE 2 DM Admission: Spoke at lenght with the patient today, who did appear to understand what I was saying. Discussed that his situation is very dire. We can certainly try to treat the severe sepsis with antibiotics (MSSA last time, so covering for that at present). I am currently giving very aggressive fluids in light of the renal injury; however, I do not believe he is going to tolerate faster fluids than what I am currently giving him due to the ESLD. For this reason, it is going to take quite a bit longer to see the lactic acidosis resolve. I spoke with Lee about the fact that it is going to be very difficult to balance the liver and kidneys as he likely has an element of hepatorenal syndrome underlying all of this, including the over-diuresis. It is impossible to know whether the infection came first or the overdiuresis preceded infection. Lee continued to tell me that he "wants to go home." However, there is a concern that his hepatic encephalopathy is affecting his judgement, so we are goign to talk with his POA. WE will continue aggressive measures until we hear otherwise from the family. Even with aggressive measures , he has a very poor prognosis. 12/31: We have given him fluids at 175ml/h for the past 24h knowing he would not tolerate the fluid boluses. Still, as expected, he is now edematous without much improvement in his creatinine. His WBC continue to be very high. I have called his POA, Pepito Jeong, who states that they will be coming as a family on Saturday. We are to continue aggressive measures until that time as they decide they want hospice. I would advise that we continue cautious fluid balances, prn lactulose enemas, etc until Saturday. We will continue antibiotics - day 2 today. 01/04 -WBC remains elevated but trending down -Cr remains elevated, but also trending down -AST with mild elevation today -patient alert and oriented, which appears to be his stated baseline per chart review -UTI --> Rocephin Day 3 -Influenza B --> Tamiflu Day 3 -continue with current plan to attempt to medically stabilize and manage patient until his son arrives on Saturday -patient does remain at high risk for decompensation due to his multiple, very serious medical issues, as outlined above DVT PROPH: SCDs, no chemoprophyaxis due to pancytopenia GI PROPH: Home regimen 01/05 -patient palliatively extubated at request of family, made DNR with comfort measures only -appears restless and uncomfortable this morning, doses of ativan and morphine adjusted for comfort -extensive discussion with son and his about the fact that we cannot say exactly when patient will , but I do expect it to likely be sometime today ; discussed that we have medications available for pain and anxiety, and that if they feel patient appears uncomfortable then they should ask for patient to be given more medication, as our goal is to make the patient as comfortable as possible. -all orders not related to comfort measures stopped, patient may move to the floor if appropriate in terms of staffing and bed availability -expect the patient will likely within the next 12 hours, however we will continue to keep him as comfortable as possible as long as is needed 01/06 - Patient comfortable this AM, transferred to floor, Palliative care to see patient today - Recommend Hospice in NH status CODE STATUS: DO NOT RESUSCITATE. COMFORT MEASURES ONLY. r Clinical Quality Measures DVT/VTE Risk/Contraindication: Risk Factor Score Per Nursin RFS Level Per Nursing on Admit: 4+=Very High LANE CAMPBELL MD Jan 06, 2018 11:55
[2018-01-07] MEDS ORDERED: LORA2ORA PO (10:43)
[2018-01-07] MEDS ORDERED: MORP100S3 PO (10:43)
--- NOTE | 2018-01-07 11:03 | Discharge Summary ---
Diagnosis/Chief Complaint Date of Admission Jan 01, 2018 at 3:51 pm Date of Discharge 01/07/18 Admission Diagnosis Admission Diagnosis Sever Sepsis UTI Bacteremia Acute kidney failure ESLD Hepatic Encephalopathy Uncontrolled IDDM Post Code Blue Discharge Diagnosis see above Chief Complaint/HPI Chief Complaint/HPI 67yo gentleman with history of cirrhosis of unknown etiology, diabetes type 2, and morbid obesity presented to [facility] from the [facility] due to swelling in his right side of his face and mental status changes. In ER, patient was found to be hypoglycemic, and his mental status improved significantly with administration of D50. Patient was also found to have a UTI which was contributing to the low BS and mental status changes. Of note, patient is on intermodal dispatcher treatment for the ESLD including diuretics and lactulose. Also, patient has a long history of non-compliance and not wanting to be in hospital. He has refused procedures and treatments in the past. He was initially admitted to [facility] but then required a hospitalization, and the [place] in [facility] wouldn't take him back, so he is now at [facility]. Today, patient tells me that his sister in law is there. Patient's main concern today is that he wants to go [place] to the [place]. Discharge Summary-Simple/Stand Consultations Discharge Physical Examination Allergies: Coded Allergies: NKANo Known Allergies (Unverified Allergy, Mild, 05/22/09) Vitals & I&Os Vital Sign - Last 12Hours Date Time Temp Pulse Resp B/P (MAP) Pulse Ox O2 Delivery O2 Flow Rate FiO2 01/06/18 21:15 Room Air 01/05/18 08:00 70 01/05/18 01:30 88 20 50.00 01/05/18 01:15 94 01/05/18 00:51 96.1 Intake and Output 01/07/18 00:00 Intake Total 0 ml Output Total 130 ml Balance -130 ml General Appearance: Other (Unresponsive) Cardiovascular: Regular Rate Abdominal: Soft Extremities: Other (3+ pitting edema in UE/LE) Hospital Course See final discharge diagnosis. Discussion & Recommendations Patient admitted with severe sepsis that was aggressively treated with fluids and antibiotics. Patient continued to decompensate and had cardiac arrest over the weekend. Family was contacted and arrived at hospital and decided to terminally extubate patient and place him on hospice. He was then set up to transfer back to [facility] on hospice. Discharge Condition at discharge Terminal Instructions to patient/family Please see electronic discharge instructions given to patient. Discharge Medications Reviewed and agree with Discharge Medication list on patient's Discharge Instruction sheet Clinical Quality Measures DVT/VTE Risk/Contraindication: Risk Factor Score Per Nursin RFS Level Per Nursing on Admit: 4+=Very High Copy Copies To 1: Cesilia ISIDRO HOLLY R MD Jan 07, 2018 11:03
--- NOTE | 2018-01-07 11:06 | Discharge Instructions ---
Discharge [facility] Discharge Medications New, Converted or Re-Newed RX: RX on Chart New Medications: Lorazepam (Lorazepam Intensol) 2 Mg/1 Ml Oral.conc 2 MG PO Q2H PRN for AGITATION, #30 ML Morphine Sulfate (Morphine Sulfate Concentrate 20mg/ml) 100 Mg/5 Ml Solution 10-20 MG PO Q2H PRN for PAIN, #30 ML Discontinued Medications: Carvedilol (Carvedilol) 6.25 Mg Tablet 6.25 MG PO BID, TAB Escitalopram Oxalate (Lexapro) 20 Mg Tablet 20 MG PO DAILY, TAB Furosemide (Furosemide) 40 Mg Tablet 80 MG PO DAILY, TAB TAKES 2 (40MG) TABLETS Hydrocodone/Ibuprofen (Hydrocodone-Ibuprofen 7.5-200) 1 Each Tablet 1 TAB PO TID, TAB Lactulose (Lactulose) 20 Gm/30 Ml Solution 30 ML PO SuTuThSa, EA Lactulose (Lactulose) 20 Gm/30 Ml Solution 45 ML PO MoWeFr, EA Ondansetron HCl (Zofran) 4 Mg Tab 4 MG PO Q6H PRN for NAUSEA/VOMITING-1ST LINE, TAB Pantoprazole Sodium (Protonix) 40 Mg Tablet.dr 40 MG PO DAILY, TAB Potassium Chloride (Potassium Chloride) 10 Meq Tablet.er 10 MEQ PO DAILY, TAB Spironolactone (Aldactone) 50 Mg Tablet 50 MG PO DAILY, TAB Sucralfate (Carafate) 1 Gm Tablet 1 GM PO ACHS, TAB Vits A and D/White Pet/Lanolin (A and D Ointment) 42.5 Gm Oint...g. TP TID, TUBE APPLY TO TESTICLES EVERY SHIFT AND PRN UNTIL HEALED Patient Instructions Goal/Follow Up Appt: Provider will see patient in [facility] [place] Activity & Diet Discharge Diet: No Restrictions Activity as Tolerated: Yes Copy Copies To 1: [facility] Hogan MD Jan 07, 2018 11:06 am
== END 2018-01-07 13:43 | disposition hospice, inpatient (51) | DRG 871 ==
LOC: EDUNIT# 14:18 → ER 14:19 → ENRESERV 15:37 → 4TH 15:51 → ICU 01-04 20:58 → 4TH 01-06 10:45
PROVIDERS: ADMIT Pediatrics; ATTEND Internal Medicine
DX: A41.01 Sepsis due to Methicillin susceptible Staphylococcus aureus (principal); R65.20 Severe sepsis without septic shock; N39.0 Urinary tract infection, site not specified; K76.7 Hepatorenal syndrome; N17.9 Acute kidney failure, unspecified; E87.2 Acidosis; D61.818 Other pancytopenia; Z51.5 Encounter for palliative care; Z66 Do not resuscitate; E86.0 Dehydration; K72.90 Hepatic failure, unspecified without coma; K74.60 Unspecified cirrhosis of liver; I10 Essential (primary) hypertension; E11.649 Type 2 diabetes mellitus with hypoglycemia without coma; E66.01 Morbid (severe) obesity due to excess calories; J10.89 Influenza due to other identified influenza virus with other manifestations; K11.20 Sialoadenitis, unspecified; I25.2 Old myocardial infarction; K21.9 Gastro-esophageal reflux disease without esophagitis; T50.2X5A Adverse effect of carbonic-anhydrase inhibitors, benzothiadiazides and other diuretics, initial encounter; Z68.38 Body mass index [BMI] 38.0-38.9, adult; Z91.19 Patient's noncompliance with other medical treatment and regimen
CPT/HCPCS: 36415; 71045; 80048; 80053; 80076; 81000; 82140; 82962; 83605; 83735; 85007; 85025; 85027; 86141; 87040; 87070; 87077; 87088; 87186; 87205; 87804; 93005; 94002; 94799; 96361; 96374; 96375